=== PATIENT | female | born 1930 | race Caucasian/White ===

== ENCOUNTER 2016-06-28 08:52 | Inpatient (IN) | payer MEDICARE ==
[~2016-06-28] VITALS: Ht 160 cm; Wt 57.1 kg
[~2016-06-28 08:52] MED LIST: AMLO2.5T PO; BENI20TA25 PO; CALC-179 PO; CENTTAB9 PO; FISH1000 PO; MAGN250T13 PO; SIMV40 PO; SYNT88TA PO; TAFL1DRO12 EACH EYE; TYLE500T PO; VITA200017 PO; VITA400C70 PO; VITA500T49 PO; VITA500T83 PO; ZYRT10TA12 PO
[2016-06-28 08:59] VITALS: BP 156/56; PULSE 56; RESP 16; TEMP 98.3; O2SAT 100
[2016-06-28] MEDS ORDERED: PROPOFOL 200 MG/20 ML AMP IV ONE (09:51)
[2016-06-28] MEDS ORDERED: NEOSTIGMINE 3 MG/3 ML SYR IV ONE (09:52)
[2016-06-28] MEDS ORDERED: ePHEDrine/NS 25 MG/5 ML SYR IV ONE (09:52)
[2016-06-28] MEDS ORDERED: LACTATED RINGER'S 1000 ML INJ 1,000 ML IV ONE ×2 (09:52)
[2016-06-28] MEDS ORDERED: ONDANSETRON HCL 4 MG/2 ML VIAL IV PUSH ONE (09:52)
[2016-06-28] MEDS ORDERED: NORMOSOL R INJ 1,000 ML IV ONE (09:53)
--- NOTE | 2016-06-28 10:17 | PD ---
HPI Chief Complaint: Abdominal Pain Time Seen by Provider: 09:56 Travel History International Travel<30 days: No Contact w/Intl Traveler<30days: No History of Present Illness HPI 85-year-old female notes left lower quadrant abdominal pain with a lump in that area since last night. She also notes nausea. She denies other concurrent complaints other than nausea. Quality of pain is sharp. Severity is moderate. Pain is worse with movement. She denies other modifying factors. She denies prior history of this. She states that she noticed the lump sometime around last night and had difficulty sleeping. PFSH Past Medical History Arthritis: Yes Asthma: No Blood Disorders: No Heart Rhythm Problems: No Cancer: No Cardiovascular Problems: Yes High Cholesterol: Yes Chest Pain: No Congestive Heart Failure: No COPD: No Cerebrovascular Accident: No Endocrine: Yes Genitourinary: No Headaches: No Hypertension: No Immune Disorder: No Musculoskeletal: Yes Neurologic: Yes (GAIT) Psychiatric: No Reproductive: No Respiratory: No Migraines: No Myocardial Infarction: No Seizures: No Sleep Apnea: No Thyroid Disease: Yes Past Surgical History Abdominal Surgery: No Cardiac Surgery: No Ear Surgery: No Endocrine Surgery: Yes (PARITIAL THYROIDECTOMY) Eye Surgery: No Genitourinary Surgery: No Gynecologic Surgery: Yes (HYSTERCTOMY) Joint Replacement: Yes Oral Surgery: No Thoracic Surgery: No Social History Alcohol Use: Yes (WHISKEY OCCASIONAL COCKTAIL BEFORE DINNER) Tobacco Use: No Substance Use: No Allergies-Medications (Allergen,Severity, Reaction): Coded Allergies: No Known Allergies (Verified , 04/17/13) Reported Meds & Prescriptions Reported Meds & Active Scripts Active Reported Vitamin E 400 Unit Cap 400 Units PO DAILY Vitamin C (Ascorbic Acid) 500 Mg Cap 500 Mg PO DAILY Magnesium Gluconate 250 Mg Tab 250 Mg PO DAILY B6 Natural (Pyridoxine HCl) 100 Mg Tab 50 Mg PO DAILY Ocuvite (Multiple Vitamins W/ Minerals) 1 Tab 1 Tab PO DAILY Zioptan Opth Drops (Tafluprost Opth Drops) 0.015 Mg/Ml Drops 1 Drop EACH EYE HS Amlodipine (Amlodipine Besylate) 2.5 Mg Tab 2.5 Mg PO DAILY Benicar (Olmesartan) 20 Mg Tab 20 Mg PO DAILY Synthroid (Levothyroxine Sodium) 88 Mcg Tab 88 Mcg PO DAILY Simvastatin 20 Mg Tab 20 Mg PO DAILY Review of Systems Except as stated in HPI: all other systems reviewed are Neg Physical Exam Narrative GENERAL: Well-nourished, well-developed patient. Well-appearing SKIN: Warm and dry. HEAD: Normocephalic and atraumatic. EYES: No injection or drainage. ENT: No nasal drainage noted. NECK: Supple, trachea midline. CARDIOVASCULAR: Regular rate and rhythm RESPIRATORY: Breath sounds equal bilaterally. No accessory muscle use. GASTROINTESTINAL: Abdomen soft, tender left lower quadrant, left lower inguinal area with approximately 3 x 3 cm masslike area that is hard to palpation and tender to touch without overlying skin changes, nondistended. EXTREMITIES: No edema. NEUROLOGICAL: Awake and alert. Motor and sensory grossly within normal limits. Normal speech. Data Data Last Documented VS Vital Signs Date Time Temp Pulse Resp B/P Pulse Ox O2 Delivery O2 Flow Rate FiO2 06/28/16 13:20 51 16 141/58 99 Room Air 06/28/16 08:59 98.3 Orders Complete Blood Count With Diff (06/28/16 09:57) Comprehensive Metabolic Panel (06/28/16 09:57) Urinalysis - C+S If Indicated (06/28/16 09:57) Lipase (06/28/16 09:57) Iv Access Insert/Monitor (06/28/16 09:57) Oximetry (06/28/16 09:57) Lactic Acid (06/28/16 10:13) Ct Abd/Pel W/O Iv Contrast (06/28/16 ) Blood Culture (06/28/16 11:34) Chest, Single Ap (06/28/16 11:34) Sodium Chlor 0.9% 1000 Ml Inj (Ns 1000 M (06/28/16 11:45) Us Soft Tissue (06/28/16 ) Piperacil-Tazo 4.5 Gm Premix (Zosyn 4.5 (06/28/16 13:23) Diet Npo (06/28/16 Lunch) Admit Order (Ed Use Only) (06/28/16 13:43) Labs Laboratory Tests Test 06/28/16 06/28/16 10:39 10:48 White Blood Count 9.7 TH/MM3 Red Blood Count 3.68 MIL/MM3 Hemoglobin 10.8 GM/DL Hematocrit 32.2 % Mean Corpuscular Volume 87.6 FL Mean Corpuscular Hemoglobin 29.2 PG Mean Corpuscular Hemoglobin 33.4 % Concent Red Cell Distribution Width 12.5 % Platelet Count 225 TH/MM3 Mean Platelet Volume 7.8 FL Neutrophils (%) (Auto) 87.2 % Lymphocytes (%) (Auto) 8.9 % Monocytes (%) (Auto) 3.4 % Eosinophils (%) (Auto) 0.2 % Basophils (%) (Auto) 0.3 % Neutrophils # (Auto) 8.5 TH/MM3 Lymphocytes # (Auto) 0.9 TH/MM3 Monocytes # (Auto) 0.3 TH/MM3 Eosinophils # (Auto) 0.0 TH/MM3 Basophils # (Auto) 0.0 TH/MM3 CBC Comment DIFF FINAL Differential Comment Sodium Level 139 MEQ/L Potassium Level 4.9 MEQ/L Chloride Level 103 MEQ/L Carbon Dioxide Level 27.1 MEQ/L Anion Gap 9 MEQ/L Blood Urea Nitrogen 21 MG/DL Creatinine 1.70 MG/DL Estimat Glomerular Filtration 29 ML/MIN Rate Random Glucose 110 MG/DL Lactic Acid Level 2.5 mmol/L Calcium Level 9.5 MG/DL Total Bilirubin 0.4 MG/DL Aspartate Amino Transf 20 U/L (AST/SGOT) Alanine Aminotransferase 22 U/L (ALT/SGPT) Alkaline Phosphatase 71 U/L Total Protein 7.4 GM/DL Albumin 3.6 GM/DL Lipase 195 U/L Urine Collection Type CATH Urine Color YELLOW Urine Turbidity CLEAR Urine pH 7.0 Urine Specific [place] 1.020 Urine Protein 100 mg/dL Urine Glucose (UA) NEG mg/dL Urine Ketones TRACE mg/dL Urine Occult Blood NEG Urine Nitrite NEG Urine Bilirubin NEG Urine Leukocyte Esterase NEG Urine WBC 0-2 /hpf Microscopic Urinalysis Comment CULT NOT INDICATED MDM Medical Decision Making Medical Screen Exam Complete: Yes Emergency Medical Condition: Yes Medical Record Reviewed: Yes (Past history confirmed) Interpretation(s) CBC & BMP Diagram 06/28/16 10:39 Last 24 hours Impressions Chest X-Ray 06/28/16 1134 Signed Impressions: Service Date/Time: Tuesday, June 28, 2016 12:21 - CONCLUSION: 1. No acute cardiopulmonary disease. Tyrese Monroy MD Soft Tissue Ultrasound 06/28/16 0000 Signed Impressions: Service Date/Time: Tuesday, June 28, 2016 11:52 - CONCLUSION: Mass left inguinal region that could be an incarcerated hernia. Necrotic lymph node is the other possibility. All Mobley MD FACR Abdomen/Pelvis CT 06/28/16 0000 Signed Impressions: Service Date/Time: Tuesday, June 28, 2016 10:22 - CONCLUSION: 1. Soft tissue mass left inguinal region that may be hernia or lymph node. Ultrasound is pending. By history this is tender to palpation 2. Two suspicious areas in the non-contrast CT scan of the liver. All Mobley MD FACR Lactate elevated at 2.5 Differential Diagnosis Incarcerated hernia, mass,hernia... Narrative Course Will check blood work, urinalysis, placed head of bed flat and placed ice pack over groin, given hard with palpation and length like this will check CT scan abdominal pelvis to assess before reduction CT scan shows lymph node that can be percutaneously accessed as an outpatient, will discuss with radiology given history Patient updated about ultrasound for better visualization Patient updated and agrees to emergent transfer to the operating room, given Zosyn Physician Communication Physician Communication discussed with IR dr lainez and will proceed with ultrasound for better visualization discussed with dr hoff as told dr mobley and dr lainez were unavailable and he states incarcerated hernia and he will add addendum Dr. Mobley called me and states given painful is hernia dr jones reviewed ct and called me back and states to send to OR Diagnosis Primary Impression: Incarcerated hernia Additional Impression: Lactic acidosis Admitting Information Admitting Physician Requests: Admit Beatriz Dougherty MD Jun 28, 2016 10:17
[2016-06-28 10:54] LABS: AUTOMATED NEUTROPHIL # 8.5 TH/MM3 (1.8-7.7); BASOPHIL % 0.3 % (0.0-2.0); EOSINOPHIL % 0.2 % (0.0-4.0); HEMATOCRIT 32.2 % (35.0-46.0); HEMO FLAGS DIFF FINAL; LYMPH % 8.9 % (9.0-44.0); LYMPHOCYTE # 0.9 TH/MM3 (1.0-4.8); MEAN CELL VOLUME 87.6 FL (80.0-100.0); MEAN CORPUSCULAR HEMOGLOBIN 29.2 PG (27.0-34.0); MEAN CORPUSCULAR HGB CONC 33.4 % (32.0-36.0); MONO % 3.4 % (0.0-8.0); NEUT % 87.2 % (16.0-70.0); PLATELET COUNT 225 TH/MM3 (150-450); RED BLOOD COUNT 3.68 MIL/MM3 (4.00-5.30); RED CELL DISTRIBUTION WIDTH 12.5 % (11.6-17.2); WHITE BLOOD COUNT 9.7 TH/MM3 (4.0-11.0)
[2016-06-28 10:56] LABS: BLOOD, URINE NEG (NEG); GLUCOSE,URINE NEG (NEG); KETONE, URINE TRACE mg/dL (NEG); NITRITE,URINE NEG (NEG)
[2016-06-28 10:57] LABS: METHOD OF COLLECTION CATH; URINE COLOR YELLOW (YELLW/STRAW)
--- NOTE | 2016-06-28 10:57 | RADHPO ---
EXAM DATE/TIME: 06/28/2016 10:22 [facility] COMPARISON: ULTRASOUND SOFT TISSUE, June 28, 2016, 11:52. INDICATIONS : Left lower abdominal and inguinal pain with lump that appeared suddenly last night. ORAL CONTRAST: No oral contrast ingested. RADIATION DOSE: 10.46 CTDIvol (mGy) MEDICAL HISTORY : Thyroid disease. SURGICAL HISTORY : Thyroidectomy. Hysterectomy. Orthopedic surgery. ENCOUNTER: Initial ACUITY: 2 days PAIN SCALE: 3/10 LOCATION: Left lower quadrant TECHNIQUE: Volumetric scanning of the abdomen and pelvis was performed. Using automated exposure control and ad justment of the mA and/or kV according to patient size, radiation dose was kept as low as reasonably achievable to obtain optimal diagnostic quality images. FINDINGS: Minimal visual thickening is present. There is no pericardial effusion. Patient has a ventriculoperitoneal shunt in place. Two small focal defects are present in the liver non-suspicious but needing further evaluation. Diverticula are present in the sigmoid colon. Patient has a large soft tissue mass on the left that is painful. This could represent hernia. Ultrasound will be used for further evaluation. There is no free air identified. There is no retroperitoneal adenopathy. CONCLUSION: 1. Soft tissue mass left inguinal region that may be hernia or lymph node. Ultrasound is pending. B y history this is tender to palpation 2. Two suspicious areas in the non-contrast CT scan of the liver. All Bah MD FACR on June 28, 2016 at 10:45 Board Certified Radiologist. This report was verified electronically.
[2016-06-28 11:02] LABS: CHLORIDE 103 MEQ/L (98-107); POTASSIUM 4.9 MEQ/L (3.5-5.1); SODIUM (NA) 139 MEQ/L (136-145)
[2016-06-28 11:03] LABS: WBC, URINE 0-2 /hpf (0-5)
[2016-06-28 11:04] LABS: COMMENT (UR) CULT NOT INDICATED; CULTURE IF INDICATED CULT NOT INDICATED
[2016-06-28 11:05] LABS: ANION GAP 9 MEQ/L (5-15); BICARBONATE 27.1 MEQ/L (21.0-32.0)
[2016-06-28 11:06] LABS: BLOOD UREA NITROGEN 21 MG/DL (7-18)
[2016-06-28 11:08] LABS: ALT (GPT) 22 U/L (10-53); AST (GOT) 20 U/L (15-37); GLOMERULAR FILTRATION RATE 29 ML/MIN (>89)
[2016-06-28 11:10] LABS: TOTAL BILIRUBIN ADULT 0.4 MG/DL (0.2-1.0)
[2016-06-28 11:11] LABS: ALKALINE PHOSPHATASE 71 U/L (45-117)
[2016-06-28] MEDS ORDERED: BENI20TA5 PO (11:42)
[2016-06-28] MEDS ORDERED: PYRI1TAB5 PO (11:42)
[2016-06-28] MEDS ORDERED: SIMV20TA PO (11:42)
[2016-06-28] MEDS ORDERED: OCUVTAB PO (11:42)
[2016-06-28] MEDS ORDERED: TAFL0.00 EACH EYE (11:42)
[2016-06-28] MEDS ORDERED: SYNT88TA PO (11:42)
[2016-06-28] MEDS ORDERED: AMLO2.5T PO (11:42)
[2016-06-28] MEDS ORDERED: MAGN250T10 PO (11:44)
[2016-06-28] MEDS ORDERED: VITA400C2 PO (11:44)
[2016-06-28] MEDS ORDERED: ASCO500C PO (11:44)
[2016-06-28] MEDS ORDERED: SODIUM CHLOR 0.9% 1000 ML INJ 1,000 ML IV ONE (11:45)
[2016-06-28 12:09] VITALS: BP 158/62; PULSE 105; RESP 16; O2SAT 96
--- NOTE | 2016-06-28 13:03 | RADHPO ---
EXAM DATE/TIME: 06/28/2016 11:52 CORRECTION Corrected on: June 28, 2016; [facility] COMPARISON: CT ABDOMEN & PELVIS W/O CONTRAST, June 28, 2016, 10:22. INDICATIONS : Palpable area in left inguinal canal. MEDICAL HISTORY : Hypercholesterolemia. Hypothyroidism. Arthritis. SURGICAL HISTORY : Hysterectomy. Thyroidectomy. Hip replacement. Right shoulder replacement. ENCOUNTER: Initial ACUITY: 2 days PAIN SCORE: 4/10 LOCATION: Left inguinal canal. AREA EVALUATED: Left inguinal canal. FINDINGS: Mass in the left inguinal region is tender to palpation. There is no peristalsis this could be an in carcerated hernia. CONCLUSION: Mass left inguinal region that could be an incarcerated hernia. Necrotic lymph node is the other possibility. All Bah MD FACR on June 28, 2016 at 12:59 Board Certified Radiologist. This report was verified electronically. All Bah MD FACR on June 28, 2016 at 13:26 Board Certified Radiologist. This report was verified electronically.
[2016-06-28 13:20] VITALS: BP 141/58; PULSE 51; RESP 16; O2SAT 99
[2016-06-28] MEDS ORDERED: PIPERACIL-TAZO 4.5 GM PREMIX 100 ML IV STA (13:23)
--- NOTE | 2016-06-28 13:34 | RADHPO ---
EXAM DATE/TIME: 06/28/2016 12:21 [facility] COMPARISON: No previous studies available for comparison. INDICATIONS : Cough MEDICAL HISTORY : Hypercholesterolemia. SURGICAL HISTORY : None. ENCOUNTER: Initial ACUITY: 1 day PAIN SCORE: 0/10 LOCATION: Bilateral chest FINDINGS: The cardiac silhouette is normal in transverse diameter. The lungs are free of acute parenchymal opac ity. No effusions are identified. There is prominence of the aortic knob is with calcification charac teristic of atherosclerotic vascular disease. Shunt catheters traversing the right hemithorax anterio rly. CONCLUSION: 1. No acute cardiopulmonary disease. Tyrese Monroy MD on June 28, 2016 at 13:32 Board Certified Radiologist. This report was verified electronically.
[2016-06-28 14:00] VITALS: BP 157/79; PULSE 49; PULSE 56; RESP 16; O2SAT 98
[2016-06-28] MEDS ORDERED: ONDANSETRON HCL 4 MG/2 ML VIAL IV PRN (16:30)
[2016-06-28] MEDS ORDERED: HYDROmorphone HCL PF 1 MG/ML VIAL IV PRN (16:30)
[2016-06-28] MEDS ORDERED: metroNIDAZOLE 500 MG INJ 100 ML IV SCH (16:30)
[2016-06-28] MEDS ORDERED: SODIUM CHLORIDE 0.9% FLUSH 10 ML FLUSH IV FLUSH PRN (16:30)
[2016-06-28] MEDS ORDERED: Post-op Orders (for Pharmacy) MISC XX ONE (16:30)
[2016-06-28] MEDS ORDERED: ACETAMINOPHEN/HYDROcodone 325 MG/5 MG TAB PO PRN ×2 (16:30)
[2016-06-28] MEDS ORDERED: BUPIVACAINE/EPINEPHRINE 0.5% PF 30 ML VIAL ONE (17:03)
--- NOTE | 2016-06-28 17:27 | MH ---
cc: ASHLEY ORDOÑEZ DATE OF ADMISSION: 06/28/2016 CHIEF COMPLAINT Left lower quadrant inguinal pain, inguinal hernia. HISTORY OF PRESENT ILLNESS The patient is an 85-year-old female who presented with acute onset of left lower inguinal pain. She states the pain started at approximately 7:00 p.m. last night and then woke her from sleep. She states the pain was sharp, 8 out of 10, currently is 2 out of 10, nonradiation, better with lying still, worse with movement or palpation. She states she has never had pain quite like this before. She came to the emergency department for further evaluation at [place] with findings and concern for incarcerated left inguinal hernia versus left inguinal mass. On my exam, the patient is resting. She states the pain is still persistent, although has some improvement with narcotic pain medication. She does deny any vomiting but does state she does have some persistent nausea. She denies fever or chills. PAST MEDICAL HISTORY: 1. Arthritis. 2. Normal pressure hydrocephalus. 3. Kidney disease. 4. Thyroid disease. 5. Hypertension. 6. Hypercholesterolemia. PAST SURGICAL HISTORY: 1. STATIONS SUPERINTENDENT shunt. 2. Tubal ligation. 3. Hysterectomy. 4. Partial thyroidectomy. ALLERGIES: NO KNOWN DRUG ALLERGIES. MEDICATIONS: See EMR. SOCIAL HISTORY: The patient denies ETOH or IVDA. No current smoking history, quit in 1995. FAMILY HISTORY: Mother with brain tumor, father with stroke. REVIEW OF SYSTEMS: GENERAL: The patient denies fevers. HEENT: Denies eye pain, ear pain. Neck: Denies swelling or pain. Chest: Denies palpitations or chest pain. Respirations: Denies cough or wheeze. Abdomen: Complained of inguinal hernia, nausea. Denies vomiting. Extremities: Denies myalgias. Complains of arthralgia. Neurologic: Denies numbness or tingling. : Denies dysuria, hematuria. Endocrine: History of thyroid disease. Denies polyuria, polydipsia. PHYSICAL EXAMINATION The patient is in no acute distress. Vital signs: Temperature 98.3, pulse 56, respiration 16, blood pressure 156/56, saturation 100%. HEENT: Pupils equal, round, reactive. Neck: Supple. Midline small incisional scar. Lungs: Bilateral expansion, clear. Heart: S1-S2 regular rhythm. Abdomen: Soft, minimal distension. Positive tenderness to palpation, left inguinal area. Positive incarcerated inguinal hernia. No evidence of erythema. Extremities: Warm, well perfused. Neurologic: GCS of 15, A&O x3. 5/5 motor all extremities. Skin: No lesions, inguinal mass. LABORATORY AND DIAGNOSTIC DATA WBC 9.7, hemoglobin 10.8, hematocrit 32.3. Platelet count 225, sodium 139, potassium 4.9, chloride 103, BUN 21, creatinine 1.7, lactate 2.5, calcium 9.5, T-bili 0.4, AST 20, ALT 22, alkaline phosphatase 71, lipase 195. IMAGING STUDIES Reviewed by myself. CT abdomen and pelvis, evidence of diverticulosis without diverticulitis, dilated small bowel loops, minimal air-fluid levels, left inguinal hernia, concern for incarcerated small bowel versus questionable lymph node on radiologic reading. CT ultrasound also reviewed concerning this. ASSESSMENT The patient is an 85-year-old female who presents with acute onset of left groin pain, concern for incarcerated left inguinal hernia. PLAN After full clinical, radiologic, and laboratory workup the patient with above-named issue including concern for a left incarcerated inguinal hernia versus necrotic mass. At this point in time the patient will go emergently to the OR for evaluation and diagnostic laparoscopy, possible inguinal hernia repair, possible bowel resection. Will keep the patient n.p.o., IV antibiotics, pain control. This was discussed in detail with the patient. The patient states understanding and agrees and would like to proceed with the procedure. MD LUPIS Dorsey/ERIC /4:42 PM /5:02 PM
--- NOTE | 2016-06-28 17:32 | HHI.PR ---
Immediate Post Op Note Procedure Date: Jun 28, 2016 Pre Op Diagnosis: incarcerated left inguinal hernia Post Op Diagnosis: same Surgeon: Alfredo Kovacs MD Senior Ui Ux Developer(s): Dr. Butler Procedure: dx lap, left inguinal hernia repair, small bowel resection Findings: incarcerated left inguinal hernia, necrotic bowel Complications: none Specimen(s) removed: small bowel Estimated blood loss: 30cc Anesthesia: General Drains: None IVF (1500) Patient to: PACU Patient Condition: Good Alfredo Kovacs MD Jun 28, 2016 17:32
[2016-06-28] MEDS ORDERED: ACETAMINOPHEN 1000 MG/100 ML VIAL IV ONE (17:39)
[2016-06-28] MEDS ORDERED: ceFAZolin 2 GM PREMIX 50 ML ONE (17:53)
[2016-06-28] MEDS ORDERED: SUGAMMADEX SODIUM 200 MG/2 ML VIAL IV PUSH ONE ×2 (18:29)
[2016-06-28] MEDS ORDERED: fentaNYL CITRATE 250 MCG/5 ML AMP ONE (19:33)
[2016-06-28 20:00] VITALS: BP 156/64; PULSE 55; RESP 17; TEMP 97.2; O2SAT 98
[2016-06-28] MEDS: LACTATED RINGER'S 1000 ML INJ 1,000 ML IV SCH (20:45)
[2016-06-28] MEDS: metroNIDAZOLE 500 MG INJ 100 ML IV SCH (20:45)
[2016-06-28] MEDS: DOCUSATE SODIUM 100 MG CAP PO SCH (22:07)
[2016-06-28] MEDS: SODIUM CHLORIDE 0.9% FLUSH 10 ML FLUSH IV FLUSH SCH (22:09)
[2016-06-29] VITALS (8 sets, daily range): BP systolic 132–176; BP diastolic 64–72; PULSE 58–71; RESP 16–20; TEMP 96.5–98.7; O2SAT 95–100
[2016-06-29] MEDS: LACTATED RINGER'S 1000 ML INJ 1,000 ML IV SCH ×3 (01:58→19:53)
[2016-06-29] MEDS: metroNIDAZOLE 500 MG INJ 100 ML IV SCH ×2 (04:26→11:58)
[2016-06-29 05:32] LABS: AUTOMATED NEUTROPHIL # 7.7 TH/MM3 (1.8-7.7); BASOPHIL % 0.3 % (0.0-2.0); EOSINOPHIL % 0.5 % (0.0-4.0); HEMATOCRIT 27.6 % (35.0-46.0); HEMO FLAGS DIFF FINAL; LYMPH % 11.8 % (9.0-44.0); LYMPHOCYTE # 1.1 TH/MM3 (1.0-4.8); MEAN CELL VOLUME 86.8 FL (80.0-100.0); MEAN CORPUSCULAR HEMOGLOBIN 30.1 PG (27.0-34.0); MEAN CORPUSCULAR HGB CONC 34.7 % (32.0-36.0); MONO % 6.8 % (0.0-8.0); NEUT % 80.6 % (16.0-70.0); PLATELET COUNT 189 TH/MM3 (150-450); RED BLOOD COUNT 3.18 MIL/MM3 (4.00-5.30); RED CELL DISTRIBUTION WIDTH 13.3 % (11.6-17.2); WHITE BLOOD COUNT 9.6 TH/MM3 (4.0-11.0)
[2016-06-29 06:01] LABS: BICARBONATE 24.9 MEQ/L (21.0-32.0); POTASSIUM 4.1 MEQ/L (3.5-5.1)
[2016-06-29] MEDS: amLODIPine BESYLATE 5 MG TAB PO SCH (08:41)
[2016-06-29] MEDS: LOSARTAN 50 MG TAB PO SCH (08:42)
[2016-06-29] MEDS: DOCUSATE SODIUM 100 MG CAP PO SCH ×2 (08:42→19:52)
[2016-06-29] MEDS: SODIUM CHLORIDE 0.9% FLUSH 10 ML FLUSH IV FLUSH SCH ×2 (08:42→19:53)
--- NOTE | 2016-06-29 13:18 | EKG ---
Date Performed: 06/28/2016 Time Performed: 15:17:17 PTAGE: 85 years EKG: SINUS BRADYCARDIA BORDERLINE ECG PREVIOUS TRACING : 05/27/2007 12.43 DOCTOR: Tyrese Williamson Interpretating Date/Time 06/29/2016 13:15:35
--- NOTE | 2016-06-29 13:24 | HHI.PR ---
Subjective Subjective Notes Resting in bed Concerned about urinary retention Objective Vitals/I&O Vital Signs Date Time Temp Pulse Resp B/P Pulse Ox O2 Delivery O2 Flow Rate FiO2 06/29/16 12:00 96.8 63 17 164/70 99 06/28/16 20:50 Room Air 06/28/16 19:30 3 Labs Laboratory Tests Test 06/29/16 04:55 White Blood Count 9.6 Red Blood Count 3.18 Hemoglobin 9.6 Hematocrit 27.6 Mean Corpuscular Volume 86.8 Mean Corpuscular Hemoglobin 30.1 Mean Corpuscular Hemoglobin 34.7 Concent Red Cell Distribution Width 13.3 Platelet Count 189 Mean Platelet Volume 8.4 Neutrophils (%) (Auto) 80.6 Lymphocytes (%) (Auto) 11.8 Monocytes (%) (Auto) 6.8 Eosinophils (%) (Auto) 0.5 Basophils (%) (Auto) 0.3 Neutrophils # (Auto) 7.7 Lymphocytes # (Auto) 1.1 Monocytes # (Auto) 0.6 Eosinophils # (Auto) 0.0 Basophils # (Auto) 0.0 CBC Comment DIFF FINAL Differential Comment Sodium Level 140 Potassium Level 4.1 Chloride Level 107 Carbon Dioxide Level 24.9 Anion Gap 8 Blood Urea Nitrogen 19 Creatinine 1.63 Estimat Glomerular Filtration 30 Rate Random Glucose 97 Calcium Level 8.4 Date/Time Procedure Status Source Growth 06/28/16 11:50 Aerobic Blood Culture - Preliminary Resulted Blood Peripheral NO GROWTH IN 1 DAY 06/28/16 11:50 Anaerobic Blood Culture - Preliminary Resulted Blood Peripheral NO GROWTH IN 1 DAY Cardiovascular: Regular Lungs: Clear Abdomen: Other (mildly distended; LEFT inguinal hernia bandage in place ---c/d/ i; lap sites c/d/i with Steri Strips in place ) Extremities: No edema A/P Assessment and Plan 85 year old female POD1 dx lap; LEFT inguinal hernia repair with small bowel resection for necrotic bowel -Start clears -OOB today -Pain control -Insert Jovel for urinary retention -Continue IVF Attending Statement s/p incarcerated IH with necrotic bowel place jovel otherwise doing well patient seen at bedside Attestation The exam, history, and the medical decision-making described in the above note were completed with the assistance of the mid-level provider. I reviewed and agree with the findings presented. I attest that I had a [id number] encounter with the patient on the same day, and personally performed and documented my assessment and findings in the medical record. Magi Najera Jun 29, 2016 13:24 Alfredo Kovacs MD Jul 15, 2016 20:59
[2016-06-30 00:02] VITALS: BP 138/51; PULSE 67; RESP 20; TEMP 97.6; O2SAT 96
[2016-06-30 08:00] VITALS: BP 140/58; PULSE 72; RESP 17; TEMP 97.6; O2SAT 94
[2016-06-30] MEDS: SODIUM CHLORIDE 0.9% FLUSH 10 ML FLUSH IV FLUSH SCH (09:00)
[2016-06-30] MEDS: DOCUSATE SODIUM 100 MG CAP PO SCH (09:00)
[2016-06-30] MEDS: LOSARTAN 50 MG TAB PO SCH (09:35)
[2016-06-30] MEDS: amLODIPine BESYLATE 5 MG TAB PO SCH (09:35)
[2016-06-30] MEDS: LACTATED RINGER'S 1000 ML INJ 1,000 ML IV SCH (09:36)
[2016-06-30 12:00] VITALS: BP 160/58; PULSE 65; RESP 16; TEMP 97.4; O2SAT 97
--- NOTE | 2016-06-30 12:24 | HHI.PR ---
Subjective Subjective Notes tolerating full liq diet, +flatus Objective Vitals/I&O Vital Signs Date Time Temp Pulse Resp B/P Pulse Ox O2 Delivery O2 Flow Rate FiO2 06/30/16 08:00 97.6 72 17 140/58 94 06/28/16 20:50 Room Air 06/28/16 19:30 3 Labs Date/Time Procedure Status Source Growth 06/28/16 11:50 Aerobic Blood Culture - Preliminary Resulted Blood Peripheral NO GROWTH IN 2 DAYS 06/28/16 11:50 Anaerobic Blood Culture - Preliminary Resulted Blood Peripheral NO GROWTH IN 2 DAYS Cardiovascular: Regular Lungs: Clear Abdomen: Other (soft, incisions scant dry blood) A/P Assessment and Plan POD 2 LIH repair with sb resection PLAN Reg diet po pain control oob d/c planning Alfredo Kovacs MD Jun 30, 2016 12:23
[2016-06-30] MEDS ORDERED: HEPARIN SODIUM - SQ 10,000 UNITS/ML VIAL SQ SCH (13:00)
--- NOTE | 2016-07-02 06:08 | MP ---
cc: ASHLEY KOVACS DATE OF SURGERY: 06/28/2016 PREOPERATIVE DIAGNOSIS: Bowel obstruction, incarcerated left inguinal hernia. POSTOPERATIVE DIAGNOSIS Bowel obstruction, incarcerated left inguinal hernia. PROCEDURE PERFORMED 1. Diagnostic laparoscopy 2. Open repair of left inguinal hernia primarily. 3. Small bowel resection with primary anastomosis. SURGEON Dr. Alfredo Kovacs REFRIGERATOR REPAIRMAN: Dr. Keyur Butler. Dr. Keyur Butler was needed due to the complexity of this open case. Dr. Butler was necessary for retraction and assistance. ANESTHESIA GETA. IV FLUIDS 1500 mL ESTIMATED BLOOD LOSS: 30 cc URINE OUTPUT: 130 cc. DRAINS: None. COMPLICATIONS: None. WOUND CLASSIFICATION Clean, contaminated SPECIMENS Small bowel. INDICATION The patient is an 85-year-old female who presented with several medical issues and complaints of left inguinal pain and bulge. She did have some nausea without vomiting. She had a CT scan showing some dilated small bowel loops concerning for incarcerated inguinal hernia on the left, versus possible necrotic lymph node. Decision was made for operative intervention including diagnostic laparoscopy with left inguinal hernia repair. I discussed with the patient in detail regarding the procedure. FINDINGS Distended small bowel with incarcerated strangulated small bowel and left inguinal hernia. DETAILS OF PROCEDURE The patient was taken to the operating suite, was placed in supine position. She was prepped and draped in the usual sterile fashion. Brief time-out done stating correct patient, procedure, surgical site. Attention first directed to the umbilicus where local anesthetic was injected. A small stab yordan incision made. Veress needle entered and placed intra-abdominally with confirmation saline drop test. Abdomen insufflated 15 millimeter pneumoperitoneum.. Veress needle switched for a 5-mm trocar and scope, on cursory inspection no evidence of injury. There was noted to be mildly dilated small bowel loops. Second trocar placed down the left lower quadrant 5 millimeter. There was noted to be incarcerated left inguinal hernia likely indirect inguinal hernia. The bowel was intimately stuck in this hernia defect with a small neck and unable to be reduced laparoscopically. Therefore the trocar was left in place. The abdomen desufflated and transitioned to open left inguinal hernia repair. A transverse 6 cm incision was made in between pubic tubercle and ASIS above the inguinal ligament. This was done with a 15 blade. Further dissection with electric Bovie cautery. This was done down to the external oblique fascia. This dissected the subcutaneous tissue off this plane. A stab yordan incision made over the external oblique in the direction of fibers. Metzenbaum scissors directed to the external inguinal canal. This was incised to the direction of the fibers. Hemostats placed. Kitner dissector was used to mobilize the cord and hernia sac. The hernia sac noted to be very distended, dark with bowel and prominent. The sac was mobilized and dissected. Upon doing so the small bowel was noted to retract back into the inguinal ring and into the abdominal cavity. The sac was opened. The small bowel was unable to be identified from this location. Therefore the abdomen insufflated, laparoscope replaced and grasper identified the necrotic portion of the small bowel. This bowel was grasped and handed through the defect in the left inguinal cavity and brought into the surface. The Lover.ly grasper was used to mobilize the bowel up through the inguinal hernia sac. This was opened already noted. The bowel was dusky and did not look viable to a small section. Therefore decision was made for small bowel resection. Endo-GRUPO 55 blue load was used to transect either side of bowel. Hemostats used and 3-0 silk ties used to ligate the mesenteric vessels. The bowel anastomosis was then recreated, 3-0 silk stay sutures placed, Bovie cautery made small enterotomies on each side of the bowel. A 55 GRUPO blue load was introduced to create the clmfewq-wcu-gfchaot layer. A crotch stitch was placed for further approximation. Allis grasped the enterotomies in order bring them up and a TA stapler was placed across this in order to transect in a fashion the closure of the small bowel anastomosis. Metzenbaum was used to remove excess tissue. The staple line oversewn with Lembert 3-0 silk pop-off. The mesenteric hernia defect was closed with [id number]-pv-[id number] 2-0 silk tie. The small bowel was then reduced back into the abdominal cavity. Next the hernia sac was pursestringed with a 0 silk suture and transected for high ligation. The sac was then reduced into the abdominal cavity. At this point we did not feel comfortable placing mesh to recreate the hernia floor due to the risk of infection and the fact that there was an incarcerated necrotic small bowel. Decision was made for 0 Ethibond sutures to approximate the conjoined tendon to the shelving edge. This was done in interrupted fashion. Next the wound was closed in layers. The external oblique was closed with a running 3-0 Vicryl suture noting to protect and identify the ilioinguinal nerve. Following this Niharika fascia was closed again in layers. [place] used for the skin loosely to approximate. Telfa amina were placed in between these. Sterile dressing was placed. The abdomen was re-insufflated to examine the small bowel anastomosis which looked good and the hernia defect was noted to be closed. Omentum was somewhat adhesed to previous incisional scar. However, a piece of omentum was able to be mobilized and placed over the anastomosis in between the repaired hernia. The abdomen was then desufflated. Trocars removed. 4-0 Monocryl was used to close the incisions. Sterile dressings were placed. All lap and instrument counts were correct at the end of the procedure. The patient tolerated the procedure well. There is no intraoperative complication. The patient is expected and taken to the PACU. MD LUPIS Dorsey/ERIC /9:35 PM /5:34 AM
[2016-08-30] MEDS ORDERED: VITA200C3 PO (14:47)
[2016-08-30] MEDS ORDERED: ASCO1CAP PO (14:47)
[2016-08-30] MEDS ORDERED: ESSE250T (14:47)
== END 2016-06-30 15:39 | disposition home or self-care (01) | DRG 329 ==
LOC: PHED 08:52 → PHEDA 13:45 → HPAC 14:55 → N07B 20:51
PROVIDERS: ADMIT Surgery; ATTEND Surgery
PROC: 0DB80ZZ Excision of Small Intestine, Open Approach (ICD-10-PCS; principal; 2016-06-28 17:19)
PROC: 0YQ60ZZ Repair Left Inguinal Region, Open Approach (ICD-10-PCS; 2016-06-28 17:19)
PROC: 0WJP4ZZ Inspection of Gastrointestinal Tract, Percutaneous Endoscopic Approach (ICD-10-PCS; 2016-06-28 17:19)
DX: K40.30 Unilateral inguinal hernia, with obstruction, without gangrene, not specified as recurrent (principal); K55.069 Acute infarction of intestine, part and extent unspecified; E87.2 Acidosis; G91.2 (Idiopathic) normal pressure hydrocephalus; I10 Essential (primary) hypertension; E78.00 Pure hypercholesterolemia, unspecified; K57.90 Diverticulosis of intestine, part unspecified, without perforation or abscess without bleeding; R33.9 Retention of urine, unspecified; E07.9 Disorder of thyroid, unspecified; M19.90 Unspecified osteoarthritis, unspecified site; N28.9 Disorder of kidney and ureter, unspecified; Z98.2 Presence of cerebrospinal fluid drainage device
CPT/HCPCS: 71010; 74176; 76999; 80048; 80053; 81001; 83605; 83690; 85025; 87040; 88307; 93005; 94150; 96361; 96374; J0131; J0690; J1644; J2405; J2543; J2710; J3010; J7030; J7120

== ENCOUNTER → 2016-08-31 | Day surgery (SDC) | payer MEDICARE ==
[~2016-08-31] VITALS: Ht 160 cm; Wt 55.8 kg
[~2016-08-31] MED LIST changes: +ACETAMINOPHEN 1000 MG/100 ML VIAL IV ONE; +ACETAMINOPHEN/HYDROcodone 325 MG/5 MG TAB ONE; +ASCO1CAP PO; -BENI20TA25 PO; +BENI20TA5 PO; +BUPIVACAINE/EPINEPHRINE 0.25% PF 10 ML VIAL ONE; -CALC-179 PO; -CENTTAB9 PO; +CHLORHEXIDINE GLUCONATE 2 % 1 PACK (2 CLOTHS) TOPICAL PRN; +DO NOT ADM ANY ANTICOAGULANT DRUGS PRN; +ESSE250T; +FAMOTIDINE 20 MG/2 ML VIAL ONE; -FISH1000 PO; +INSULIN HUMAN REGULAR 1,000 UNITS/10 ML VIAL SQ PRN; +LACTATED RINGER'S 1000 ML INJ 1,000 ML IV ONE; +LACTATED RINGER'S 1000 ML IV PRN; -MAGN250T13 PO; +METOPROLOL TARTRATE 25 MG TAB PO PRN; +NEOSTIGMINE 3 MG/3 ML SYR IV ONE; +OCUVTAB PO; +ONDANSETRON HCL 4 MG/2 ML VIAL IV PUSH ONE; +ONDANSETRON HCL 4 MG/2 ML VIAL IV PUSH PRN; +PHENYLEPH/NS 1000 MCG/10 ML SYR IV ONE; +POVIDONE IODINE 5% (ANTISEPSIS KIT) 4 APPLICATIONS EACH NARE PRN; +PROPOFOL 200 MG/20 ML AMP IV ONE; +PYRI1TAB5 PO; +SIMV20TA PO; -SIMV40 PO; +SODIUM CHLORID 0.9% 500 ML IV PRN; +TAFL0.00 EACH EYE; -TAFL1DRO12 EACH EYE; -TYLE500T PO; -VITA200017 PO; +VITA200C3 PO; -VITA400C70 PO; -VITA500T49 PO; -VITA500T83 PO; -ZYRT10TA12 PO; +ceFAZolin 2 GM PREMIX 50 ML IV SCH; +ePHEDrine/NS 25 MG/5 ML SYR IV ONE; +fentaNYL CITRATE 250 MCG/5 ML AMP ONE; +oxyCODONE/ACETAMINOPHEN 5 MG/325 MG TAB PO PRN
[2016-08-31 09:05] VITALS: BP_SYST 196; BP_SYST 204; BP_DIAS 60; BP_DIAS 73; PULSE 64; RESP 22; TEMP 98; O2SAT 99
[2016-08-31 09:12] LABS: AUTOMATED NEUTROPHIL # 2.9 TH/MM3 (1.8-7.7); BASOPHIL % 0.6 % (0.0-2.0); EOSINOPHIL # 0.2 TH/MM3 (0-0.4); EOSINOPHIL % 4.2 % (0.0-4.0); HEMATOCRIT 33.4 % (35.0-46.0); HEMO FLAGS DIFF FINAL; LYMPH % 32.1 % (9.0-44.0); LYMPHOCYTE # 1.7 TH/MM3 (1.0-4.8); MEAN CELL VOLUME 87.3 FL (80.0-100.0); MEAN CORPUSCULAR HEMOGLOBIN 28.4 PG (27.0-34.0); MEAN CORPUSCULAR HGB CONC 32.6 % (32.0-36.0); MONO % 8.3 % (0.0-8.0); NEUT % 54.8 % (16.0-70.0); PLATELET COUNT 227 TH/MM3 (150-450); RED BLOOD COUNT 3.83 MIL/MM3 (4.00-5.30); RED CELL DISTRIBUTION WIDTH 13.6 % (11.6-17.2); WHITE BLOOD COUNT 5.2 TH/MM3 (4.0-11.0)
[2016-08-31 09:30] LABS: BICARBONATE 26.2 MEQ/L (21.0-32.0); POTASSIUM 4.4 MEQ/L (3.5-5.1)
--- NOTE | 2016-08-31 12:21 | HHI.PR ---
Immediate Post Op Note Procedure Date: Aug 31, 2016 Pre Op Diagnosis: right inguinal hernia, umbilical hernia Post Op Diagnosis: same Surgeon: Alfredo Kovacs MD Grants Director(s): Dr. Miller Whitney needed due to the complexity of the laparoscopic procedure. Dr. Whitney needed to for retraction and camera control. Procedure: laparoscopic right inguina hernia repair, open umbilical hernia repair Findings: reducible right inguinal hernia, umbilical hernia, adhesions Complications: none Specimen(s) removed: none Estimated blood loss: 5cc Anesthesia: General Drains: None Patient to: PACU Patient Condition: Good Alfredo Kovacs MD Aug 31, 2016 12:21
[2016-08-31 14:16] VITALS: BP 138/66; PULSE 57; RESP 18; TEMP 97.5; O2SAT 98
--- NOTE | 2016-09-01 22:09 | MP ---
cc: DANIEL KOVACS MD DATE OF SURGERY 08/31/16 PREOPERATIVE DIAGNOSIS Right reducible inguinal hernia repair, umbilical hernia. POSTOPERATIVE DIAGNOSIS Right reducible inguinal hernia repair, umbilical hernia. indirect inguinal hernia. PROCEDURE Diagnostic laparoscopy, laparoscopic repair of right indirect inguinal hernia with mesh, [facility], open repair of umbilical hernia. SURGEON Dr. Dora Kovacs LOCKSTITCH SHOULDER JOINER Dr. Anastasia Whitney needed due to the complex of the laparoscopic case. Dr. Whitney assisted in retraction, camera control and visualization. ANESTHESIA GETA. IV FLUIDS See anesthesia sheet ESTIMATED BLOOD LOSS 10 mL. DRAINS None COMPLICATIONS None WOUND CLASSIFICATION Clean SPECIMENS None FINDINGS Reducible indirect inguinal hernia. Small umbilical hernia. Left inguinal hernia repair intact. INDICATIONS The patient is an 85-year-old female who presented initially with a left inguinal hernia. She was obstructed at this time. The patient underwent emergent surgery with open left inguinal hernia repair with bowel resection. She improved from this and was seen in the office several times, but over the time the patient also noted to be complaining of constipation and increased straining and intra-abdominal pressure due to chronic constipation. In the last 3 weeks, she developed bulging on the right side and complaints of right reducible inguinal hernia.. She also had a small umbilical hernia. Therefore, a decision was made for operative intervention including laparoscopic repair. Discussed with the patient in detail, agreed and would like to proceed. PROCEDURE IN DETAIL The patient was taken to operating suite, placed in supine position. She was prepped and draped in usual sterile fashion after induction of general endotracheal anesthesia. Brief time-out done stating correct patient, procedure and surgical site we were all in agreement. Attention initially directed to the left upper quadrant where a stab yordan incision made. Veress needle placed, intraabdominal placement confirmed with saline drop test. The abdomen insufflated to 15 mm pneumoperitoneum. The Veress needle was exchanged for a 5-mm trocar. On cursory inspection, no evidence of injury. On inspection, there was noted to be a right indirect inguinal hernia that was completely reducible. Two other trocars placed, one 5 mm left lower quadrant trocar followed by a 12-mm infraumbilical trocar. The patient placed in Trendelenburg and airplaned to the left. There were several adhesions noted to the right upper quadrant. These were taken down in order to facilitate visualization and assist in manipulation and repair. The peritoneal edge was incised from superiorly above the inguinal canal laterally near the AISI. This was done with a scissors electro Bovie cautery. Superior and inferior flaps were created. Dissection was done in order to clear adequate place for mesh placement comfortably without any undue folding. Once we accomplished this and the hernia reduction, the mesh was cut to appropriate size. All appropriate mesh was used. Surgical tacker used to tack and three focal points, one at the shelving edge, one superior and medial and one superolateral to this. The hernia defect was adequately covered and we were happy with this. The defect covered all of potential spaces as well in the preperitoneal cavity. Next, the peritoneum was closed over the mesh. This was done with 3-0 Stratifix in running fashion x2. The peritoneum was a little bit thin and tenuous, however, we did achieve adequate and good coverage completely of our mesh and seal. was placed in the right lower quadrant. Next, the abdomen was desufflated and attention directed to the umbilicus where a curvilinear incision was made for the 12 trocar. There a was small hernia sac present at the umbilicus. The skin edges were mobilized. The sac was then visualized, mobilized and excised. Once adequate fascial edges were identified, a #1 was obtained. The hernia defect was closed in a [id number] fashion. Next, the umbilicus was tacked down. The subcuticular sutures were done to 4-0 Monocryl following port site incisions. Sterile dressings including Dermabond was placed. Local anesthetic injected at all port sites. The patient tolerated procedure well. There was no intraoperative complication. The patient was extubated, taken stable to the PACU. MD LUPIS Dorsey/ /1:33 PM /9:43 PM PEDRITO
== END | disposition home or self-care (01) ==
LOC: HSDC 08:22
PROVIDERS: ATTEND Surgery
DX: K40.30 Unilateral inguinal hernia, with obstruction, without gangrene, not specified as recurrent (principal); K42.9 Umbilical hernia without obstruction or gangrene; I12.9 Hypertensive chronic kidney disease with stage 1 through stage 4 chronic kidney disease, or unspecified chronic kidney disease; N18.9 Chronic kidney disease, unspecified; E78.5 Hyperlipidemia, unspecified; J44.9 Chronic obstructive pulmonary disease, unspecified; E03.9 Hypothyroidism, unspecified; M19.90 Unspecified osteoarthritis, unspecified site
CPT/HCPCS: 49585; 49650; 80048; 85025; C1781; J0131; J2370; J2405; J2710; J3010; J7120

== ENCOUNTER 2017-12-27 11:01 | Inpatient (IN) ==
[2017-12-27 12:03] LABS: Baso % (Auto) 0.2 % (0.0-2.0); Hematocrit 32.9 % (35.0-46.0); Lymph # (Auto) 0.5 th/mm3 (1.0-4.8); Mean Corpuscular HGB Conc 33.4 % (32.0-36.0); Mean Corpuscular Hemoglobin 29.9 pg (27.0-34.0); Mean Corpuscular Volume 89.6 fL (80.0-100.0); Mono # (Auto) 0.8 th/mm3 (0.0-0.9); Mono % (Auto) 6.1 % (0.0-8.0); Neut # (Auto) 11.5 th/mm3 (1.8-7.7); Neut % (Auto) 89.7 % (16.0-70.0); Platelet Count 207 th/mm3 (150-450); Red Blood Count 3.67 mil/mm3 (4.00-5.30); Red Cell Distribution Width 13.5 % (11.6-17.2); White Blood Count 12.8 th/mm3 (4.0-11.0)
--- NOTE | 2017-12-27 12:11 | ED ---
HPI General Chief complaint: Headache Stated complaint: Medical Time Seen by Provider: 12/27/17 11:18 Source: patient, family and EMS Mode of arrival: EMS Limitations: no limitations History of Present Illness HPI narrative: Patient is an 87-year-old female presenting with her daughter via EMS for evaluation of possible TIA. Patient woke up this morning at around 830 and called a friend and stated that she just did not feel well. Apparently she was slurring her words, the daughter saw patient around 9 AM, the symptoms had improved. Patient has no complaints now other than right rib pain. She denies any falls. She states the pain is mild, worse with deep breathing. She denies any shortness of breath or chest pain, nausea, vomiting, abdominal pain. Patient reports that she has a headache occasionally when changes occur in barometric pressure, this is chronic for her. She denies any new headache pain or pain currently. She denies any visual changes. Patient did not take her blood pressure medication this morning. 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 MD complaint: Possible TIA, rib pain Onset (ago): hour(s) (3.5) Radiation: non-radiation Severity: mild Severity scale (1-10): 3 Quality: dull Pain Consistency: intermittent Relieving factors: rest Exacerbating factors: movement Associated symptoms: denies other symptoms Treatments prior to arrival: none Related Data Home Medications Medication Instructions Recorded Confirmed levothyroxine [Synthroid] 88 mcg PO DAILY 12/27/17 12/27/17 olmesartan [Benicar] 20 mg PO DAILY 12/27/17 12/27/17 simvastatin 20 mg PO QPM 12/27/17 12/27/17 tafluprost (PF) [Zioptan (PF)] 1 drp OPHTHALMIC (EYE) QPM 12/27/17 12/27/17 vit C-vit [id number] 1 cap PO DAILY 12/27/17 12/27/17 [Ocuvite] Allergies Allergy/AdvReac Type Severity Reaction Status Date / Time EYE DROPS Allergy Severe Swelling Uncoded 08/31/16 09:47 Review of Systems ROS: all other systems reviewed are negative [facility] Medical History Medical History Glaucoma (Chronic) Hydrocephalus (Chronic) Hyperlipidemia (Chronic) Hypertension (Chronic) Hypothyroid (Chronic) Renal disease (Chronic) Social History Social History Substance History: No History of Abuse Second Hand Smoke Exposure: No Smoking Status: Former smoker Tobacco Type: Cigarettes How Often Do You Have a Drink Containing Alcohol: Never Recent Travel in [facility] within the Last 8 Weeks: No Recent Out of Country Travel within the Last 8 Weeks: No Immunization History Tetanus Immunization: <5 Years Exam Narrative Exam Narrative: GENERAL: Well-developed, well-nourished, alert elderly female. Presenting in no acute distress. SKIN: Focused skin assessment warm/dry. HEAD: Atraumatic. Normocephalic. EYES: Pupils equal and round. No scleral icterus. No injection or drainage. ENT: No nasal bleeding or discharge. Mucous membranes pink and moist. NECK: Trachea midline. No JVD. CARDIOVASCULAR: Regular rate and rhythm. No murmur appreciated. RESPIRATORY: No accessory muscle use. Clear to auscultation. Breath sounds equal bilaterally. GASTROINTESTINAL: Abdomen soft, non-tender, nondistended. Hepatic and splenic margins not palpable. MUSCULOSKELETAL: No obvious deformities. No clubbing. No cyanosis. No edema. Mild tenderness to palpation lateral aspect of right ribs. NEUROLOGICAL: Awake and alert. No obvious cranial nerve deficits. Motor grossly within normal limits. Normal speech. PSYCHIATRIC: Appropriate mood and affect; insight and judgment normal. Course Initial Documented Vital Signs Temperature 98.4 F 12/27/17 11:12 Pulse Rate 85 12/27/17 11:12 Respiratory Rate 18 12/27/17 11:12 Blood Pressure 208/88 H 12/27/17 11:12 Pulse Oximetry 96 12/27/17 11:12 Last Documented Vital Signs Temperature 98.4 F 12/27/17 11:12 Pulse Rate 69 12/27/17 15:15 Respiratory Rate 17 12/27/17 15:15 Blood Pressure 166/58 H 12/27/17 15:15 Pulse Oximetry 100 12/27/17 15:15 Medical Decision Making MDM Narrative Medical decision making narrative: Patient is an 87-year-old female presenting to the emergency department for evaluation of possible TIA. Symptoms resolved prior to arrival. Patient has no focal deficits on arrival. Labs and imaging ordered and pending. Patient was placed on telemetry monitoring continuous pulse oximetry. Patient was markedly hypertensive on arrival, she did not take Benicar this morning. She was given enalapril 2.5 mg IV x1 dose. Patient is well-appearing, daughters at bedside. Labs reviewed, CBC with a mildly elevated white count 12.5. Chest x-ray and urinalysis are unremarkable. Chemistry with a BUN and creatinine of 27/1.77, this is stable when compared to prior.Discussed findings with daughter who is concerned because patient has been more irritable and she thinks this is due to the shunt malfunctioning. Reassured her the CT of the brain and shunt series had no acute abnormalities. Pt will be admitted for observation for possible TIA. BP continued to be elevated, pt was given Clonidine 0.2mg PO x 1 dose. Medical Screen Exam Complete: Yes Emergency Medical Condition: Yes Differential Diagnosis Differential Diagnosis: Costochondritis versus pneumonia versus TIA versus metabolic abnormality versus UTI versus other Medical Records Medical records reviewed: Yes I reviewed the patient's medical records. Lab Data Lab results reviewed: Yes I reviewed the patient's lab results. Result diagrams: 12/27/17 11:30 12/27/17 11:30 Lab Results 12/27/17 12/27/17 12/27/17 Range/Units 11:30 11:30 11:30 WBC 12.8 H (4.0-11.0) th/mm3 RBC 3.67 L (4.00-5.30) mil/mm3 Hgb 11.0 L (11.6-15.3) gm/dL Hct 32.9 L (35.0-46.0) % MCV 89.6 (80.0-100.0) fL MCH 29.9 (27.0-34.0) pg MCHC 33.4 (32.0-36.0) % RDW 13.5 (11.6-17.2) % Plt Count 207 (150-450) th/mm3 MPV 8.0 (7.0-11.0) fL Neut % (Auto) 89.7 H (16.0-70.0) % Lymph % (Auto) 4.0 L (9.0-44.0) % Mccracken % (Auto) 6.1 (0.0-8.0) % Eos % (Auto) 0.0 (0.0-4.0) % Baso % (Auto) 0.2 (0.0-2.0) % Neut # (Auto) 11.5 H (1.8-7.7) th/mm3 Lymph # (Auto) 0.5 L (1.0-4.8) th/mm3 Mccracken # (Auto) 0.8 (0.0-0.9) th/mm3 Eos # (Auto) 0.0 (0.0-0.4) th/mm3 Baso # (Auto) 0.0 (0.0-0.2) th/mm3 WBC Differential . Differential Comment Auto diff final PT 10.7 (9.8-11.6) sec INR 1.1 Ratio APTT 24.5 (24.3-30.1) sec Sodium 139 (136-145) meq/L Potassium 4.1 (3.5-5.1) meq/L Chloride 107 (98-107) meq/L Carbon Dioxide 23.6 (21.0-32.0) meq/L Anion Gap 8 (5-15) meq/L BUN 27 H (7-18) mg/dL Creatinine 1.77 H (0.50-1.00) mg/dL Estimated GFR 27 L (>89) mL/min Random Glucose 103 (74-106) mg/dL Calcium 9.0 (8.5-10.1) mg/dL Total Bilirubin 0.5 (0.2-1.0) mg/dL AST 18 (15-37) U/L ALT 22 (10-53) U/L Alkaline Phosphatase 79 (45-117) U/L Total Creatine Kinase 67 (26-192) U/L Troponin I Less than 0.02 L (0.02-0.05) ng/mL Total Protein 7.6 (6.4-8.2) g/dL Albumin 3.3 L (3.4-5.0) g/dL Urine Color (Yellw/Straw) Urine Clarity (Clear) Urine pH (5.0-8.5) Ur Specific [place] (1.002-1.035) Urine Protein (Neg-Trace) mg/dL Urine Glucose (UA) (Negative) mg/dL Urine Ketones (Negative) mg/dL Urine Occult Blood (Negative) Urine Nitrate (Negative) Urine Bilirubin (Negative) Urine Urobilinogen (Less than 2) mg/dL Ur Leukocyte Esterase (Negative) Urine RBC (0-3) /hpf Urine WBC (0-5) /hpf Ur Squamous Epith Cells (0-5) /hpf Micro UA Comment Ur Microscopic Review Urine Culture Comments 12/27/17 Range/Units 14:15 WBC (4.0-11.0) th/mm3 RBC (4.00-5.30) mil/mm3 Hgb (11.6-15.3) gm/dL Hct (35.0-46.0) % MCV (80.0-100.0) fL MCH (27.0-34.0) pg MCHC (32.0-36.0) % RDW (11.6-17.2) % Plt Count (150-450) th/mm3 MPV (7.0-11.0) fL Neut % (Auto) (16.0-70.0) % Lymph % (Auto) (9.0-44.0) % Mccracken % (Auto) (0.0-8.0) % Eos % (Auto) (0.0-4.0) % Baso % (Auto) (0.0-2.0) % Neut # (Auto) (1.8-7.7) th/mm3 Lymph # (Auto) (1.0-4.8) th/mm3 Mccracken # (Auto) (0.0-0.9) th/mm3 Eos # (Auto) (0.0-0.4) th/mm3 Baso # (Auto) (0.0-0.2) th/mm3 WBC Differential Differential Comment PT (9.8-11.6) sec INR Ratio APTT (24.3-30.1) sec Sodium (136-145) meq/L Potassium (3.5-5.1) meq/L Chloride (98-107) meq/L Carbon Dioxide (21.0-32.0) meq/L Anion Gap (5-15) meq/L BUN (7-18) mg/dL Creatinine (0.50-1.00) mg/dL Estimated GFR (>89) mL/min Random Glucose (74-106) mg/dL Calcium (8.5-10.1) mg/dL Total Bilirubin (0.2-1.0) mg/dL AST (15-37) U/L ALT (10-53) U/L Alkaline Phosphatase (45-117) U/L Total Creatine Kinase (26-192) U/L Troponin I (0.02-0.05) ng/mL Total Protein (6.4-8.2) g/dL Albumin (3.4-5.0) g/dL Urine Color Yellow (Yellw/Straw) Urine Clarity Clear (Clear) Urine pH 6.0 (5.0-8.5) Ur Specific [place] 1.013 (1.002-1.035) Urine Protein 100 H (Neg-Trace) mg/dL Urine Glucose (UA) Negative (Negative) mg/dL Urine Ketones Trace H (Negative) mg/dL Urine Occult Blood Small H (Negative) Urine Nitrate Negative (Negative) Urine Bilirubin Negative (Negative) Urine Urobilinogen Less than 2 (Less than 2) mg/dL Ur Leukocyte Esterase Negative (Negative) Urine RBC 1 (0-3) /hpf Urine WBC Less than 1 (0-5) /hpf Ur Squamous Epith Cells 1 (0-5) /hpf Micro UA Comment Culture not ind Ur Microscopic Review Not Reportable Urine Culture Comments Culture not ind Imaging Data Radiologist's impression: Chest X-Ray 12/27/17 00:00 CONCLUSION: No acute cardiopulmonary findings. No definite abnormality to explain the patient's rib pain identified. Head CT 12/27/17 11:19 CONCLUSION: 1. The patient's ventriculostomy shunt appears in good position. The size of the ventricles is stable compared to the previous examination. . Shunt Study 12/27/17 11:21 CONCLUSION: The ventriculoperitoneal shunt tubing appears intact. Discharge Plan Discharge Disposition Patient Disposition: 30 Still Patient Discharge Condition Condition: Stable Discharge Details Diagnosis: TIA (transient ischemic attack), Hypertension Physicians Team ED Provider: Buzz Miller ED Midlevel Provider: Bianca Zuniga Primary Care Provider: Yoni Carrasco Attending Provider: Shamir Beltre Discharge Interventions Interventions: Vital Signs Last Done: 12/27/17 15:15 Status ED Status: Admitted Observation Patient
[2017-12-27 12:13] LABS: Activated Partial Thrombo Time 24.5 sec (24.3-30.1); INR 1.1 Ratio; Prothrombin Time 10.7 sec (9.8-11.6)
[2017-12-27 12:29] LABS: Albumin 3.3 g/dL (3.4-5.0); Anion Gap 8 meq/L (5-15); Aspartate Aminotransferase 18 U/L (15-37); Blood Urea Nitrogen 27 mg/dL (7-18); Carbon Dioxide 23.6 meq/L (21.0-32.0); Chloride 107 meq/L (98-107); Glomerular Filtration Rate 27 mL/min (>89); Glucose,Random 103 mg/dL (74-106); Potassium 4.1 meq/L (3.5-5.1); Sodium 139 meq/L (136-145)
[2017-12-27 12:34] LABS: Alanine Aminotransferase 22 U/L (10-53); Alkaline Phosphatase 79 U/L (45-117); Total Protein 7.6 g/dL (6.4-8.2)
--- NOTE | 2017-12-27 12:37 | XR ---
EXAM DATE: 12/27/2017 11:21 AM EDT AGE/SEX: 87 years / Female INDICATIONS: Shunt series, confusion, headache. Right lateral rib pain. CLINICAL DATA: This is the patient's initial encounter. Patient reports that signs and symptoms have been present for 3 days and indicates a pain score of 0/10. MEDICAL/SURGICAL HISTORY: . Shunt . Shunt COMPARISON: [facility], CHEST SINGLE AP, 06/28/2016. . FINDINGS: Examination includes two-view skull, two-view C-spine, and frontal views of the chest and abdomen. Ventriculostomy shunt tip is identified projecting into the lateral ventricular system on the left.. The alignment of the tubing with the reservoir is maintained without evidence of separation. The shunt tubing has a normal course through the neck and chest without discontinuity or kink. The shunt tubing is coiled in the abdomen without displacement of the bowel about the distal tip. CONCLUSION: The ventriculoperitoneal shunt tubing appears intact. Electronically signed by: Jay Bah MD 12/27/2017 12:36 PM EDT
--- NOTE | 2017-12-27 12:46 | CT ---
EXAM DATE: 12/27/2017 11:31 AM EDT AGE/SEX: 87 years / Female INDICATIONS: Slurred speech, Cephalgia. CLINICAL DATA: This is the patient's initial encounter. Patient reports that signs and symptoms have been present for 1 day and indicates a pain score of 3/10. MEDICAL/SURGICAL HISTORY: Hypertension. Glaucoma . 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 . TECHNIQUE: CT of the head without contrast. Using automated exposure control and adjustment of the mA and/or kV according to patient size, radiation dose was kept as low as reasonably achievable to ob tain optimal diagnostic quality images. DICOM format image data is available electronically for revi ew and comparison. FINDINGS: The examination demonstrates a ventriculostomy shunt which enters from a right frontal approach. The tip overlies the lateral ventricular system on the left. The ventricles and sulci are at the upper li mits of normal in size. They are stable compared to a previous of 09/22/2016. There is no evidence of transependymal fluid migration. No acute intracranial hemorrhage is seen. No mass lesion is identified. No extra-axial fluid collecti ons are present. The appearance of the posterior fossa is unremarkable. 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 There are post surgical changes within the skull. CONCLUSION: 1. The patient's ventriculostomy shunt appears in good position. The size of the ventricles is stabl e compared to the previous examination. . Electronically signed by: Jay Bah MD 12/27/2017 12:45 PM EDT
[2017-12-27 12:52] LABS: Creatine Kinase 67 U/L (26-192)
--- NOTE | 2017-12-27 14:06 | XR ---
EXAM DATE: 12/27/2017 12:00 AM EDT AGE/SEX: 87 years / Female INDICATIONS: Evaluate for rib pain. CLINICAL DATA: This is the patient's initial encounter. Patient reports that signs and symptoms have been present for 1 day and indicates a pain score of 5/10. MEDICAL/SURGICAL HISTORY: . Hypertension. Glaucoma . . BACK MAKER shunt COMPARISON: [facility] [place], SHUNT SERIES, 12/27/2017. . FINDINGS: The heart is mildly enlarged. There are diffuse chronic interstitial changes within the pulmonary par enchyma. The parenchyma is otherwise clear. Note is made of tubing of a ventriculoperitoneal shunt. T he osseous structures demonstrate postsurgical changes in the right shoulder but are otherwise intact . CONCLUSION: No acute cardiopulmonary findings. No definite abnormality to explain the patient's rib pain identified. Electronically signed by: Jay Bah MD 12/27/2017 2:05 PM EDT
[2017-12-27 14:36] LABS: Bilirubin,Urine Negative (Negative); Clarity,Urine Clear (Clear); Color,Urine Yellow (Yellw/Straw); Glucose,Urine (UA) Negative (Negative); Leukocyte Esterase,Urine Negative (Negative); Nitrite,Urine Negative (Negative); Specific Gravity,Urine 1.013 (1.002-1.035); Squamous Epithelial Cell,Urine 1 /hpf (0-5)
--- NOTE | 2017-12-27 15:44 | P.HPIM ---
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 her daughter says that this morning she noticed that her speech was slurred and she seemed confused.she had urinary incontinence at the time. she says that she had some headache/ pressure this morning which has almost resolved. she denies any emesis,focal weakness, fever. she doesn't report any falls. she's complaining of mild pain to the right chest wall. Review of Systems All other systems reviewed negative except as stated in HPI [facility] - History History Provided By: Patient, Family Member - Medical History Medical History: Medical History (Last Reviewed 12/27/17 @ 15:36 by Shamir Beltre MD) Hydrocephalus Hypertension Renal disease Glaucoma Hyperlipidemia Hypothyroid - Surgical History Surgical History: Surgical History (Last Updated 12/27/17 @ 15:37 by Shamir Beltre MD) H/O shoulder surgery COMMERCIAL CREDIT ANALYST (ventriculoperitoneal) shunt status - Family History Family History: Family History (Last Updated 12/27/17 @ 15:38 by Shamir Beltre MD) Other CVA (cerebral vascular accident) - Tobacco History Second Hand Smoke Exposure: No Tobacco Use In Past 30 Days: No Smoking Status: Former smoker Tobacco Type: Cigarettes - Alcohol History How Often Do You Have a Drink Containing Alcohol: Never - Substance Use History Substance History: No History of Abuse - Travel History Recent Travel in the [place] Within the Last 8 Weeks: No Recent Travel Out of the Country Within the Last 8 Weeks: No - Immunization History Tetanus Immunization: <5 Years Medications and Allergies Active Medications: Active Medications Aspirin (Aspirin Chew) 162 mg PO DAILY SHIN Enalaprilat (Vasotec Inj) 1.25 mg IV.PUSH Q8H PRN PRN Reason: SBP > 200 or DBP > 120 Sodium Chloride (Ns Inj) 1,000 mls @ 84 mls/hr IV.CONT .[id number] SHIN Levothyroxine Sodium (Synthroid) 88 mcg PO DAILY SHIN Non-Formulary Medication (Simvastatin [Simvastatin]) 20 mg PO QPM SHIN Non-Formulary Medication (Tafluprost (Pf) [Zioptan (Pf)]) 1 drp EACH EYE QPM SHIN Sodium Chloride (Ns Flush) 2 ml IV.FLUSH PRN PRN PRN Reason: FLUSH AFTER USING IV ACCESS Last Admin: 12/27/17 13:47 Dose: 2 ml Allergies Allergy/AdvReac Type Severity Reaction Status Date / Time EYE DROPS Allergy Severe Swelling Uncoded 08/31/16 09:47 Home Medications Medication Instructions Recorded Confirmed Type levothyroxine [Synthroid] 88 mcg PO DAILY 12/27/17 12/27/17 History olmesartan [Benicar] 20 mg PO DAILY 12/27/17 12/27/17 History simvastatin 20 mg PO QPM 12/27/17 12/27/17 History tafluprost (PF) [Zioptan (PF)] 1 drp OPHTHALMIC (EYE) QPM 12/27/17 12/27/17 History vit C-vit [id number] 1 cap PO DAILY 12/27/17 12/27/17 History [Ocuvite] Exam Vital signs: Vital Signs 12/27/17 11:12 12/27/17 11:47 12/27/17 11:51 Temperature 98.4 F Pulse Rate 85 80 Respiratory Rate 18 18 Blood Pressure 208/88 H 204/137 H Pulse Oximetry 96 98 96 12/27/17 12:11 12/27/17 13:24 12/27/17 13:49 Temperature Pulse Rate 80 80 82 Respiratory Rate 17 17 15 Blood Pressure 212/92 H 221/90 H 207/89 H Pulse Oximetry 98 95 99 12/27/17 14:00 12/27/17 15:15 Temperature Pulse Rate 80 69 Respiratory Rate 22 17 Blood Pressure 201/73 H 166/58 H Pulse Oximetry 99 100 Intake & Output 12/26/17 12/27/17 12/27/17 18:59 06:59 18:59 Weight 56.699 kg - Constitutional no acute distress - Routine HEENT Exam Head: Present: atraumatic - Routine Neck Exam Present: full ROM - Routine Respiratory Exam Present: CTA bilaterally - Routine Cardiovascular Exam Present: RRR - Routine Abdominal Exam Present: soft - Routine Extremities Exam Comments: no pedal edema. - Routine Neurological Exam Present: alert, oriented X3 Results - Labs CBC & Chem 7: 12/27/17 11:30 12/27/17 11:30 Labs: Short CBC 12/27/17 Range/Units 11:30 WBC 12.8 H (4.0-11.0) th/mm3 Hgb 11.0 L (11.6-15.3) gm/dL Hct 32.9 L (35.0-46.0) % Plt Count 207 (150-450) th/mm3 BMP 12/27/17 11:30 Sodium 139 Potassium 4.1 Chloride 107 Carbon Dioxide 23.6 BUN 27 H Creatinine 1.77 H Calcium 9.0 Cardiac Enzymes 12/27/17 Range/Units 11:30 Total Creatine Kinase 67 (26-192) U/L Troponin I Less than 0.02 L (0.02-0.05) ng/mL Liver Function 12/27/17 Range/Units 11:30 Total Bilirubin 0.5 (0.2-1.0) mg/dL AST 18 (15-37) U/L ALT 22 (10-53) U/L Alkaline Phosphatase 79 (45-117) U/L Albumin 3.3 L (3.4-5.0) g/dL Urine 12/27/17 Range/Units 14:15 Urine Color Yellow (Yellw/Straw) Urine Clarity Clear (Clear) Urine pH 6.0 (5.0-8.5) Ur Specific [place] 1.013 (1.002-1.035) Urine Protein 100 H (Neg-Trace) mg/dL Urine Glucose (UA) Negative (Negative) mg/dL - Imaging Impressions Chest X-Ray 12/27/17 00:00 CONCLUSION: No acute cardiopulmonary findings. No definite abnormality to explain the patient's rib pain identified. Head CT 12/27/17 11:19 CONCLUSION: 1. The patient's ventriculostomy shunt appears in good position. The size of the ventricles is stable compared to the previous examination. . Shunt Study 12/27/17 11:21 CONCLUSION: The ventriculoperitoneal shunt tubing appears intact. Caprini VTE Risk Assessment Caprini VTE Risk Assessment: Moderate/High Risk (score >= 2) Caprini Risk Assessment Model: Point Value = 1 Point Value = 2 Point Value = 3 Point Value = 5 Age 41-60 Minor surgery BMI > 25 kg/m2 Swollen legs Varicose veins or History of unexplained or recurrent spontaneous Oral contraceptives or hormone replacement Sepsis (< 1 month) Serious lung disease, including pneumonia (< 1 month) Abnormal pulmonary function Acute myocardial infarction Congestive heart failure (< 1 month) History of inflammatory bowel disease Medical patient at bed rest Age 61-74 Arthroscopic surgery Major open surgery (> 45 min) Laparoscopic surgery (> 45 min) Malignancy Confined to bed (> 72 hours) Immobilizing plaster cast Central venous access Age >= 75 History of VTE Family history of VTE Factor V Leiden Prothrombin [id number] Lupus anticoagulant Anticardiolipin antibodies Elevated serum homocysteine Heparin-induced thrombocytopenia Other congenital or acquired thrombophilia Stroke (< 1 month) Elective arthroplasty Hip, pelvis, or leg fracture Acute spinal cord injury (< 1 month) Prophylaxis Regimen: Total Risk Factor Score Risk Level Prophylaxis Regimen 0-1 Low Early ambulation 2 Moderate Order ONE of the following: *Sequential Compression Device (SCD) *Heparin 5000 units SQ BID 3-4 Higher Order ONE of the following medications: *Heparin 5000 units SQ TID *Enoxaparin/Lovenox 40 mg SQ daily (WT < 150 kg, CrCl > 30 mL/min) *Enoxaparin/Lovenox 30 mg SQ daily (WT < 150 kg, CrCl > 10-29 mL/min) *Enoxaparin/Lovenox 30 mg SQ BID (WT < 150 kg, CrCl > 30 mL/min) AND/OR *Sequential Compression Device (SCD) 5 or more Highest Order ONE of the following medications: *Heparin 5000 units SQ TID (Preferred with Epidurals) *Enoxaparin/Lovenox 40 mg SQ daily (WT < 150 kg, CrCl > 30 mL/min) *Enoxaparin/Lovenox 30 mg SQ daily (WT < 150 kg, CrCl > 10-29 mL/min) *Enoxaparin/Lovenox 30 mg SQ BID (WT < 150 kg, CrCl > 30 mL/min) AND *Sequential Compression Device (SCD) Assessment and Plan - Plan A/P - TIA vs CVA CT head with no acute abnormality with COMMERCIAL CREDIT ANALYST shunt in good position. start on aspirin and continue statin- consult neurology. will check carotid doppler and echo- continue with neuro-checks. consult PT/OT/ST. -Normal Pressure Hydrocephalus; s/p COMMERCIAL CREDIT ANALYST shunt placement- shunt study showed intact COMMERCIAL CREDIT ANALYST shunt. -hypertension; received Clonidine and Vasotec in ER- will proceed with permissive hypertension for now- awaiting neurology evaluation. -CKD; at her baseline- will monitor. -hypothyroidism; resume home meds -DVT prophylaxis with subq Heparin Code Status: DNR per my d/w the patient and her daughter. Discussed Condition With: ER midlevel/ the patient, her daughter and RN. Discharge Planning: pending w/u.
--- NOTE | 2017-12-27 16:29 | US ---
EXAM DATE: 12/27/2017 12:00 AM EDT AGE/SEX: 87 years / Female INDICATIONS: Transient ischemic attack. CLINICAL DATA: This is the patient's initial encounter. Patient reports that signs and symptoms have been present for 1 day and indicates a pain score of 0/10. MEDICAL/SURGICAL HISTORY: Hypertension. Hypothyroidism. Glaucoma. Hydrocephalus. Hyperlipidemi a. Renal disease. None. COMPARISON: No prior exams available for comparison. VELOCITY PARAMETERS: ICA/CCA Ratio: Right 1.4 , Left 1.5 ICA: Right 119.9 cm/sec, Left 123.9 cm/sec CCA: Right 83.1 cm/sec, Left 80.6 cm/sec ECA: Right 118.0 cm/sec, Left 145.6 cm/sec Vertebral: Right 118.0 cm/sec antegrade, Left 67.2 cm/sec antegrade FINDINGS: Right Carotid: Bulky arteriosclerotic plaque is visualized.The waveforms are within normal limits. Left Carotid: Bulky arteriosclerotic plaque is visualized. The waveforms are within normal limits. Other: None. CONCLUSION: 1. 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 2. Left Internal Carotid Artery: Findings indicate 50-69% stenosis. Electronically signed by: Seth Jose MD 12/27/2017 4:27 PM EDT
[2017-12-27] MEDS: Sod Chloride 0.9% Inj 1,000 ML IV.CONT SCH (17:53)
[2017-12-27] MEDS ORDERED: ZIOPTAN 0.0015% EACH EYE SCH (18:00)
--- NOTE | 2017-12-27 21:44 | MB ---
cc: Jai Huff MD, PhD DATE: 12/27/2017 REASON FOR CONSULTATION: TIA. HISTORY OF PRESENT ILLNESS: Ms. Carlson is an 87-year-old woman with normal pressure hydrocephalus with NEGOTIATIONS DIRECTOR shunt placement who yesterday developed a sudden onset of slurred speech and mild confusion. She also had some urinary incontinence. She had no focal deficits. She seems to be better now. She states her speech is back to normal. PAST MEDICAL HISTORY: History of NPH, status post shunting, hypertension, renal insufficiency, glaucoma, hyperlipidemia, hypothyroidism, shoulder surgery. MEDICATIONS: Vasotec p.r.n. She is on aspirin 162 mg daily, which was just started in the ER. She has not been on aspirin before. She is on Pravachol. NEUROLOGIC EXAMINATION: VITAL SIGNS: Blood pressure 154/65, pulse 94, respirations 17, temperature 98.5 degrees Fahrenheit. HIGHER CORTICAL FUNCTION: She is alert and oriented. Speech is normal at this time. CRANIAL NERVES: Intact. MOTOR: Reveals no focal weakness. Reflexes are symmetric. IMAGING STUDIES: CT of the brain shows NEGOTIATIONS DIRECTOR shunt in place, no acute change present. There is some atrophy. Ventricles at the upper limit of normal. No evidence of transependymal fluid migration. LABORATORY DATA: White count 12,800, hemoglobin 11, hematocrit 32.9%, platelet count 207,000. PT 10.7, INR 1.1, aPTT 24.5. Sodium 139, potassium 4.1, chloride 107, CO2 of 23.6, BUN 27, creatinine 1.77, GFR 27, AST 18, ALT 22. IMPRESSION: Probable transient ischemic attack, which has resolved. RECOMMENDATIONS: Continue aspirin. We will obtain an echocardiogram, a carotid ultrasound and lipid panel. Continue to monitor cardiac telemetry to rule out atrial fibrillation. Jai Huff MD, PhD JOLIE/[place] , 08:54 PM , 09:00 PM
[2017-12-28] MEDS: Acetaminophen 325 MG Tablet PO PRN (04:06)
[2017-12-28] MEDS: Sod Chloride 0.9% Inj 1,000 ML IV.CONT SCH ×2 (05:11→17:21)
[2017-12-28] MEDS: Levothyroxine 88 MCG Tablet PO SCH (05:13)
[2017-12-28 06:03] LABS: Baso % (Auto) 0.3 % (0.0-2.0); Eos % (Auto) 0.1 % (0.0-4.0); Hematocrit 26.4 % (35.0-46.0); Hemoglobin 8.9 gm/dL (11.6-15.3); Lymph # (Auto) 0.6 th/mm3 (1.0-4.8); Mean Corpuscular HGB Conc 33.6 % (32.0-36.0); Mean Corpuscular Hemoglobin 30.5 pg (27.0-34.0); Mean Corpuscular Volume 90.6 fL (80.0-100.0); Mean Platelet Volume 8.2 fL (7.0-11.0); Mono # (Auto) 0.7 th/mm3 (0.0-0.9); Mono % (Auto) 6.2 % (0.0-8.0); Neut # (Auto) 10.7 th/mm3 (1.8-7.7); Neut % (Auto) 88.4 % (16.0-70.0); Platelet Count 163 th/mm3 (150-450); Red Blood Count 2.91 mil/mm3 (4.00-5.30); Red Cell Distribution Width 13.4 % (11.6-17.2); White Blood Count 12.1 th/mm3 (4.0-11.0)
[2017-12-28 06:33] LABS: Calcium 8.1 mg/dL (8.5-10.1); Chol/HDL Ratio 2.13 Ratio; HDL Cholesterol 57.6 mg/dL (40.0-60.0); Potassium 3.9 meq/L (3.5-5.1)
[2017-12-28] MEDS: Heparin - SQ 10,000 UNITS/ML Vial SQ SCH ×2 (08:17→21:45)
[2017-12-28 09:14] LABS: Thyroid Stimulating Hormone 0.68 uIU/mL (0.358-3.740)
--- NOTE | 2017-12-28 10:53 | US ---
EXAM DATE: 12/28/2017 12:00 AM EDT AGE/SEX: 87 years / Female INDICATIONS: Increased lab values. CLINICAL DATA: This is the patient's initial encounter. Patient reports that signs and symptoms have been present for 1 day and indicates a pain score of 0/10. MEDICAL/SURGICAL HISTORY: Hypertension. Hypothyroidism. Glaucoma. Hyperlipidemia. Renal diseas e. Hydrocephalus. . Shoulder surgery. Ventriculoperitoneal shunt. COMPARISON: [facility], CT ABDOMEN & PELVIS W/O CONTRAST, 06/28/2016. . MEASUREMENTS: Right Kidney:__9.1 x 3.4 x 3.0 cm Left Kidney:__8.5 x 3.4 x 3.2 cm FINDINGS: Right Kidney: Increased echogenicity. No mass or hydronephrosis. Left Kidney: Increased echogenicity. No mass or hydronephrosis. Bladder: Within normal limits given the degree of distension. Other: None. CONCLUSION: Both kidneys are at the lower limits for normal in size. Both kidneys also demonstrate increased echo genicity suggesting medical renal disease. Electronically signed by: Abe Townsend MD 12/28/2017 10:52 AM EDT
--- NOTE | 2017-12-28 12:08 | P.PN ---
Subjective Interval history: Follow-up on patient with episode of slurred speech, urinary incontinence. Patient seen and examined. Patient states that on Sunday she had recurrent episodes of "falling asleep" associated with urinary incontinence and "not feeling herself". She also reports headaches. She denies any complaints of hematuria or dysuria. She has a history of NPH status [place] INFORMATION SECURITY [place] [address] Burris. She states that she has had no episodes of urinary incontinence since the shunt was placed. She denies any tongue biting or bowel incontinence. She denies any history of seizures. She denies any history of CVA. She denies any recent illness, fever or chills. She denies any focal weakness, numbness or tingling. She reports to me this morning that she feels that she is back at her baseline. She denies any complaints at this time except for "feeling a little wobbly". Physical Exam Vital signs: Vital Signs 12/27/17 11:47 12/27/17 11:51 12/27/17 12:11 Temperature Pulse Rate 80 80 Respiratory Rate 18 17 Blood Pressure 204/137 H 212/92 H Pulse Oximetry 98 96 98 12/27/17 13:24 12/27/17 13:49 12/27/17 14:00 Temperature Pulse Rate 80 82 80 Respiratory Rate 17 15 22 Blood Pressure 221/90 H 207/89 H 201/73 H Pulse Oximetry 95 99 99 12/27/17 15:15 12/27/17 16:00 12/27/17 18:25 Temperature 98.5 F Pulse Rate 69 Respiratory Rate 17 Blood Pressure 166/58 H 154/65 H Pulse Oximetry 100 95 95 12/27/17 20:00 12/27/17 23:37 12/28/17 03:44 Temperature 99.8 F H 98.1 F 101.4 F H Pulse Rate 70 69 70 Respiratory Rate 17 19 20 Blood Pressure 103/49 L 157/63 H 144/63 H Pulse Oximetry 94 L 94 L 93 L 12/28/17 08:00 12/28/17 09:08 Temperature 97.6 F Pulse Rate 61 55 L Respiratory Rate 20 Blood Pressure 133/57 L Pulse Oximetry 94 L Intake & Output 12/27/17 12/28/17 12/28/17 18:59 06:59 18:59 Intake Total 360 / 360 1480 / 1480 Balance 360 / 1480 / 1480 Weight 60 kg 59.874 kg Intake: IV 1000 / 1000 NS Inj 1,000 ML @ 84 mls/hr IV. 1000 / 1000 CONT .[id number] SHIN Rx#:[id number] Oral / 360 480 / 480 Other: # Voids 2 Weight On Admission 60 kg Narrative: GENERAL: Well-developed well-nourished elderly female patient, no acute distress. Awake and alert. Family is at the bedside. SKIN: Warm and dry. HEAD: Atraumatic. Normocephalic. No facial asymmetry appreciated. EYES: Pupils equal and round. No scleral icterus. No injection or drainage. ENT: No nasal bleeding or discharge. Mucous membranes pink and moist. NECK: Trachea midline. CARDIOVASCULAR: Regular rate and rhythm. RESPIRATORY: No accessory muscle use. Clear to auscultation. Breath sounds equal bilaterally. GASTROINTESTINAL: Abdomen soft, non-tender, nondistended. Hepatic and splenic margins not palpable. MUSCULOSKELETAL: Extremities without clubbing, cyanosis, or edema. No obvious deformities. NEUROLOGICAL: Awake and alert. No obvious cranial nerve deficits. Motor grossly within normal limits. Able to move all extremities spontaneously. No focal weakness appreciated. Normal speech. PSYCHIATRIC: Appropriate mood and affect; insight and judgment normal. Results - Labs CBC & Chem 7: 12/28/17 05:30 12/28/17 05:30 Laboratory Results - last 24 hr 12/27/17 12/27/17 12/27/17 11:30 11:30 11:30 WBC 12.8 H RBC 3.67 L Hgb 11.0 L Hct 32.9 L MCV 89.6 MCH 29.9 MCHC 33.4 RDW 13.5 Plt Count 207 MPV 8.0 Neut % (Auto) 89.7 H Lymph % (Auto) 4.0 L [place] % (Auto) 6.1 Eos % (Auto) 0.0 Baso % (Auto) 0.2 Neut # (Auto) 11.5 H Lymph # (Auto) 0.5 L [place] # (Auto) 0.8 Eos # (Auto) 0.0 Baso # (Auto) 0.0 WBC Differential . Differential Comment Auto diff final PT 10.7 INR 1.1 APTT 24.5 Sodium 139 Potassium 4.1 Chloride 107 Carbon Dioxide 23.6 Anion Gap 8 BUN 27 H Creatinine 1.77 H Estimated GFR 27 L Random Glucose 103 Calcium 9.0 Total Bilirubin 0.5 AST 18 ALT 22 Alkaline Phosphatase 79 Total Creatine Kinase 67 Troponin I Less than 0.02 L Total Protein 7.6 Albumin 3.3 L Triglycerides Cholesterol LDL Cholesterol, Calc HDL Cholesterol Cholesterol/HDL Ratio Vitamin B12 TSH Urine Color Urine Clarity Urine pH Ur Specific [place] Urine Protein Urine Glucose (UA) Urine Ketones Urine Occult Blood Urine Nitrate Urine Bilirubin Urine Urobilinogen Ur Leukocyte Esterase Urine RBC Urine WBC Ur Squamous Epith Cells Micro UA Comment Ur Microscopic Review Urine Culture Comments 12/27/17 12/28/17 12/28/17 14:15 05:30 05:30 WBC 12.1 H RBC 2.91 L Hgb 8.9 L D Hct 26.4 L MCV 90.6 MCH 30.5 MCHC 33.6 RDW 13.4 Plt Count 163 MPV 8.2 Neut % (Auto) 88.4 H Lymph % (Auto) 5.0 L [place] % (Auto) 6.2 Eos % (Auto) 0.1 Baso % (Auto) 0.3 Neut # (Auto) 10.7 H Lymph # (Auto) 0.6 L [place] # (Auto) 0.7 Eos # (Auto) 0.0 Baso # (Auto) 0.0 WBC Differential . Differential Comment Auto diff final PT INR APTT Sodium 136 Potassium 3.9 Chloride 105 Carbon Dioxide 21.0 Anion Gap 10 BUN 30 H Creatinine 1.97 H Estimated GFR 24 L Random Glucose 144 H Calcium 8.1 L D Total Bilirubin AST ALT Alkaline Phosphatase Total Creatine Kinase Troponin I Total Protein Albumin Triglycerides 94 Cholesterol 123 LDL Cholesterol, Calc 47 HDL Cholesterol 57.6 Cholesterol/HDL Ratio 2.13 Vitamin B12 TSH Urine Color Yellow Urine Clarity Clear Urine pH 6.0 Ur Specific [place] 1.013 Urine Protein 100 H Urine Glucose (UA) Negative Urine Ketones Trace H Urine Occult Blood Small H Urine Nitrate Negative Urine Bilirubin Negative Urine Urobilinogen Less than 2 Ur Leukocyte Esterase Negative Urine RBC 1 Urine WBC Less than 1 Ur Squamous Epith Cells 1 Micro UA Comment Culture not ind Ur Microscopic Review Not Reportable Urine Culture Comments Culture not ind 12/28/17 05:30 WBC RBC Hgb Hct MCV MCH MCHC RDW Plt Count MPV Neut % (Auto) Lymph % (Auto) [place] % (Auto) Eos % (Auto) Baso % (Auto) Neut # (Auto) Lymph # (Auto) [place] # (Auto) Eos # (Auto) Baso # (Auto) WBC Differential Differential Comment PT INR APTT Sodium Potassium Chloride Carbon Dioxide Anion Gap BUN Creatinine Estimated GFR Random Glucose Calcium Total Bilirubin AST ALT Alkaline Phosphatase Total Creatine Kinase Troponin I Total Protein Albumin Triglycerides Cholesterol LDL Cholesterol, Calc HDL Cholesterol Cholesterol/HDL Ratio Vitamin B12 555 TSH 0.680 Urine Color Urine Clarity Urine pH Ur Specific [place] Urine Protein Urine Glucose (UA) Urine Ketones Urine Occult Blood Urine Nitrate Urine Bilirubin Urine Urobilinogen Ur Leukocyte Esterase Urine RBC Urine WBC Ur Squamous Epith Cells Micro UA Comment Ur Microscopic Review Urine Culture Comments - Imaging Impressions Carotid Doppler Study 12/27/17 00:00 CONCLUSION: 1. 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 2. Left Internal Carotid Artery: Findings indicate 50-69% stenosis. Chest X-Ray 12/27/17 00:00 CONCLUSION: No acute cardiopulmonary findings. No definite abnormality to explain the patient's rib pain identified. Head CT 12/27/17 11:19 CONCLUSION: 1. The patient's ventriculostomy shunt appears in good position. The size of the ventricles is stable compared to the previous examination. . Shunt Study 12/27/17 11:21 CONCLUSION: The ventriculoperitoneal shunt tubing appears intact. Abdomen/Bladder Ultrasound 12/28/17 00:00 CONCLUSION: Both kidneys are at the lower limits for normal in size. Both kidneys also demonstrate increased echogenicity suggesting medical renal disease. Assessment and Plan - Plan 87 y/o female with history of NPH- s/p INFORMATION SECURITY shunt placement, hypertension, dyslipidemia,hypothyroidism, CKD,who presented to ER with slurred speech and urinary incontinence. TIA vs CVA CT head with no acute abnormality with INFORMATION SECURITY shunt in good position. Echo done Carotid US shows bilateral stenosis 50-69% Consult Vascular surgery, appreciate assistance Neurology following, appreciate assistance Continue ASA and statin daily Obtain EEG, r/o seizure given h/o multiple episodes of "falling asleep" and urinary incontinence continue neuro checks Holter monitor continue continuous cardiac monitoring PT/OT/ST fall and seizure precautions Fever, Tmax 101.4 leukocytosis, mild now afebrile CXR neg UA unremarkable patient does not appear septic Blood cx pending, follow until finalized monitor temperature trend Normal Pressure Hydrocephalus; s/p INFORMATION SECURITY shunt placement 2007 shunt study showed intact INFORMATION SECURITY shunt. patient and family concerned about need for shunt revision, will consult Dr. Burris who placed the shunt in 2007, appreciate his assistance Hypertension received Clonidine and Vasotec in ER patient on Benicar at home TRACY on CKD stage 3 baseline appears to be around 1.6 to 1.7 Cr up to 1.97 today given Vasotec yesterday Renal US shows medical renal dz UA +proteinuria, no e/o UTI hold home Benicar avoid nephrotoxic agents continue to monitor BMP Hypothyroidism;chronic TSH WNL continue on Levothyroxine DVT prophylaxis with subq Heparin Code Status: DNR Discussed Condition With: patient, nursing staff, Dr. Draper Discharge Planning: Not ready for discharge
--- NOTE | 2017-12-28 12:15 | ECHRPT ---
Indication: CVA/TIA CONCLUSIONS The estimated LV EF is 55-60%. Normal LV size and wall thickness. No regional wall motion abnormalities. Grade 2 diastolic dysfunction. Mild mitral valve regurgitation. [id number] aortic valve regurgitation. There is mild tricuspid valve regurgitation. The estimated pulmonary arterial pressure is 52.5 mmHg. The IVC is normal size and has >50% collapse with inspiration reflecting normal CVP. No atrial level shunt is demonstrated by color flow Doppler interrogation. No prior for comparison. BP: / HR: 54 Rhythm: Sinus MEASUREMENTS (Male / Female) Normal Values Technical Quality:Fair 2D ECHO LV Diastolic Diameter PLAX 4.8 cm 4.2 - 5.9 / 3.9 - 5.3 cm LV Systolic Diameter PLAX 3.2 cm IVS Diastolic Thickness 1.0 cm 0.6 - 1.0 / 0.6 - 0.9 cm LVPW Diastolic Thickness 1.0 cm 0.6 - 1.0 / 0.6 - 0.9 cm LV Relative Wall Thickness 0.4 RV Internal Dim ED PLAX 2.0 cm LVOT Diameter 1.8 cm Aortic Root Diameter 3.1 cm LA Systolic Diameter LX 3.1 cm 3.0 - 4.0 / 2.7 - 3.8 cm M-MODE AV Cusp Separation MM 1.1 cm DOPPLER AV Peak Velocity 175.0 cm/s AV Peak Gradient 12.3 mmHg AV Mean Gradient 6.0 mmHg AV Velocity Time Integral 37.9 cm AI Peak Velocity 372.5 cm/s AI Peak Gradient 55.5 mmHg AI Pressure Half Time 478.5 ms LVOT Peak Velocity 131.0 cm/s LVOT Peak Gradient 6.9 mmHg LVOT Velocity Time Integral 24.5 cm AV Area Cont Eq vti 1.6 cm AV Area Cont Eq pk 1.9 cm Mitral E Point Velocity 107.0 cm/s Mitral A Point Velocity 119.0 cm/s Mitral E to A Ratio 0.9 LV E' Lateral Velocity 6.8 cm/s Mitral E to LV E' Lateral Ratio 15.7 LV E' Septal Velocity 7.3 cm/s Mitral E to LV E' Septal Ratio 14.6 TR Peak Velocity 326.0 cm/s TR Peak Gradient 42.5 mmHg Right Atrial Pressure 10.0 mmHg Pulmonary Artery Systolic Pressu 52.5 mmHg Right Ventricular Systolic Press 52.5 mmHg PV Peak Velocity 74.4 cm/s PV Peak Gradient 2.2 mmHg FINDINGS LEFT VENTRICLE Normal left ventricular size. Wall thickness is normal. The left ventricular systolic function is grossly normal on limited imaging. RIGHT VENTRICLE Normal right ventricular size and systolic function. LEFT ATRIUM The left atrial size is normal. RIGHT ATRIUM The right atrial size is normal. ATRIAL SEPTUM No atrial level shunt is demonstrated by color flow Doppler interrogation. AORTA The aortic root and proximal ascending aorta are not well visualized. MITRAL VALVE Mild mitral valve regurgitation. AORTIC VALVE Aortic valve sclerosis is present. Uqbl-nj-pocsocim aortic valve regurgitation. TRICUSPID VALVE There is mild tricuspid valve regurgitation. The estimated pulmonary arterial pressure is 52.5 mmHg. PULMONARY VALVE No pulmonary valve regurgitation or stenosis. VESSELS The inferior vena cava is normal in size. PERICARDIUM No pericardial effusion. Vijaya Venegas MD (Electronically Signed) Final Date:28 December 2017 12:15
--- NOTE | 2017-12-28 15:23 | ECG ---
Date Performed: 12/27/2017 Time Performed: 16:05:42 PTAGE: 87 years EKG: Sinus rhythm NONSPECIFIC T-WAVE ABNORMALITY BORDERLINE ECG Since the PREVIOUS TRACING , no significant change noted PREVIOUS TRACIN06/28/2016 15.17 DOCTOR: Cria Womack Interpretating Date/Time 12/28/2017 15:17:07
[2017-12-28 18:06] LABS: Hemoglobin A1c 5.4 % (4.3-6.0)
--- NOTE | 2017-12-28 20:10 | MG ---
cc: Tyrese Pascual MD EEG NUMBER: [id number] INDICATIONS: T4 electrode around an old incision site. An 87-year-old with slurred speech, confusion. MEDICATIONS: 1. Heparin. 2. Synthroid. DESCRIPTION: Shunt. An 8 Hz to 7 Hz diffuse rhythm is noted. Bifrontal muscle artifact is seen, makes interpretation difficult. Over the T4 electrode, there are some phase reversing slight sharply contoured alpha waves and maybe some focal slowing there, seen best in the transverse montage. Photic stimulation is not performed. Some bifrontal delta slowing may also be seen somewhat obscured by muscle artifact. IMPRESSION: Some focal slowing appears over the right midtemporal head region, sometimes slightly sharply contoured with some phase reversing there. This could indicate a propensity for seizures coming out of that region. Right temporal lobe abnormality should be ruled out. Tyrese Pascual MD DJM/ct , 07:15 PM , 07:19 PM
--- NOTE | 2017-12-28 20:11 | P.PNNEU ---
Subjective Subjective Comments: no new c/o Active Medications: Active Medications Acetaminophen (Tylenol) 650 mg PO Q4H PRN PRN Reason: FEVER Last Admin: 12/28/17 04:06 Dose: 650 mg Amlodipine Besylate (Norvasc) 5 mg PO DAILY [facility] Aspirin (Aspirin Chew) 162 mg PO DAILY [facility] Last Admin: 12/28/17 08:17 Dose: 162 mg Enalaprilat (Vasotec Inj) 1.25 mg IV.PUSH Q8H PRN PRN Reason: SBP > 200 or DBP > 120 Heparin Sodium (Porcine) (Heparin Inj) 5,000 units SQ Q12HR [facility] Last Admin: 12/28/17 08:17 Dose: 5,000 units Sodium Chloride (Ns Inj) 1,000 mls @ 42 mls/hr IV.CONT .[id number] [facility] Last Admin: 12/28/17 17:21 Dose: 84 mls/hr Levothyroxine Sodium (Synthroid) 88 mcg PO DAILY@0600 [facility] Last Admin: 12/28/17 05:13 Dose: 88 mcg Patient Own Medication: Zioptan 0.0015% Ophthalmic Solution ( Preservative-Free ) 0 each EACH EYE DAILY@1800 [facility] Pravastatin Sodium (Pravachol) 40 mg PO DAILY@1800 [facility] Last Admin: 12/28/17 17:53 Dose: 40 mg Sodium Chloride (Ns Flush) 2 ml IV.FLUSH PRN PRN PRN Reason: FLUSH AFTER USING IV ACCESS Last Admin: 12/27/17 13:47 Dose: 2 ml Allergies/Adverse Reactions: Allergies Allergy/AdvReac Type Severity Reaction Status Date / Time EYE DROPS Allergy Severe Swelling Uncoded 08/31/16 09:47 Physical Exam Vital signs: Vital Signs 12/27/17 23:37 12/28/17 03:44 12/28/17 08:00 Temperature 98.1 F 101.4 F H 97.6 F Pulse Rate 69 70 61 Respiratory Rate 19 20 20 Blood Pressure 157/63 H 144/63 H 133/57 L Pulse Oximetry 94 L 93 L 94 L 12/28/17 09:08 12/28/17 11:54 12/28/17 16:00 Temperature 97.6 F 101.9 F H Pulse Rate 55 L 79 80 Respiratory Rate 12 20 Blood Pressure 165/69 H 193/78 H Pulse Oximetry 100 93 L 12/28/17 17:17 Temperature Pulse Rate Respiratory Rate Blood Pressure 151/82 H Pulse Oximetry Intake & Output 12/28/17 12/28/17 12/29/17 06:59 18:59 06:59 Intake Total 1480 / 1480 1000 / 1000 Balance 1480 / 1480 1000 / 1000 Weight 59.874 kg Intake: IV 1000 / 1000 1000 / 1000 NS Inj 1,000 ML @ 84 mls/hr IV. 1000 / 1000 1000 / 1000 CONT .[id number] [facility] Rx#:[id number] Oral 480 / 480 Other: # Voids 2 - Routine Neurological Exam alert, speech is normal CN intact MOTOR 5/5 BUE and BLE Objective Laboratory Results - last 24 hr 12/28/17 12/28/17 12/28/17 05:30 05:30 05:30 WBC 12.1 H RBC 2.91 L Hgb 8.9 L D Hct 26.4 L MCV 90.6 MCH 30.5 MCHC 33.6 RDW 13.4 Plt Count 163 MPV 8.2 Neut % (Auto) 88.4 H Lymph % (Auto) 5.0 L Sherman % (Auto) 6.2 Eos % (Auto) 0.1 Baso % (Auto) 0.3 Neut # (Auto) 10.7 H Lymph # (Auto) 0.6 L Sherman # (Auto) 0.7 Eos # (Auto) 0.0 Baso # (Auto) 0.0 WBC Differential . Differential Comment Auto diff final Sodium 136 Potassium 3.9 Chloride 105 Carbon Dioxide 21.0 Anion Gap 10 BUN 30 H Creatinine 1.97 H Estimated GFR 24 L Random Glucose 144 H Calcium 8.1 L D Triglycerides 94 Cholesterol 123 LDL Cholesterol, Calc 47 HDL Cholesterol 57.6 Cholesterol/HDL Ratio 2.13 Vitamin B12 555 TSH 0.680 Review/Management - Diagnosis (1) TIA (transient ischemic attack) Code(s): G45.9 - Transient cerebral ischemic attack, unspecified Status: Acute Current Visit: Yes - Review/Management Plan: probable TIA--continue low dose aspirin NPH--ventrilce size is stable . Shunt is stable
--- NOTE | 2017-12-28 21:04 | MB ---
cc: La Frausto MD DATE: 12/28/2017 CONSULTING PHYSICIAN: La Frausto MD, of vascular surgery. REASON FOR CONSULTATION: Bilateral carotid plaques, possible stroke. HISTORY OF PRESENT ILLNESS: This 87-year-old lady presented to the emergency room with slurred speech and confusion as well as urinary incontinence. The patient was noted not to have lost consciousness, but her daughter states she was incontinent and incoherent. The patient was admitted, and in the meantime, this resolved. However, this afternoon, the patient is getting again slightly worse. A question arose about any surgical implications of vascular disease causing this. PAST SURGICAL HISTORY: [employer] shunt placement for normal pressure hydrocephalus, bilateral inguinal hernia repairs at different times in the last 2 years, 1 for incarceration and 1 electively, shoulder surgery. PAST MEDICAL HISTORY: Hypertension, chronic renal insufficiency, glaucoma, hyperlipidemia, hypothyroidism. SOCIAL HISTORY: The patient does not smoke or drink. It should be noted that the patient did smoke for many years and stopped. In addition, it should be noted that the patient, per her family, has lost about 25-30 pounds in a very short period of time and was allegedly worked up by her family practice physician, but no clear cause was determined and the patient keeps going. PHYSICAL EXAMINATION: GENERAL: Reveals a pleasant 87-year-old lady. HEENT: Normocephalic. No trauma to the head. Pupils equal, reactive. Extraocular muscles intact. The patient appears to be gaunt and weak. NECK: Bilateral carotid pulses. On the right side, I can palpate the ventriculoperitoneal shunt as it courses posterior to the sternocleidomastoid muscle. CHEST: Bilateral breath sounds. 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 HEART: Regular rhythm. ABDOMEN: Soft. No rebound, no guarding, no masses. EXTREMITIES: The patient has bilateral femoral, popliteal, dorsalis pedis and posterior tibial pulses. No signs of vascular deficits. BACK: Normal. NEUROLOGIC: The patient is awake, alert and oriented; however, has expressive aphasia, unable to form words and probably some degree of receptive aphasia in addition as she does not quite understand all the time what I am saying to her. Motorically, she seems to be intact and equal bilateral with no lateralization. IMPRESSION AND RECOMMENDATIONS: I reviewed the laboratory and diagnostic procedures. This lady does have a carotid ultrasound that reveals bilateral bulky plaques in the bifurcations; however, no significant stenosis, possibly 60% to 70% bilateral. At this point, I believe it is appropriate to do a CTA of the carotids. This should be clearly associated with a caveat for this is an elderly lady and her candidacy for carotid surgery is limited. While the patient is a candidate for surgery, she should be also be considered for endovascular stenting should there be stenosis there. The Society of Vascular Surgery does recommend to avoid surgery in patients who have less than 4 years of life left by some sort of a fairly subjective criteria generalized in nature. In this particular situation, this lady is 87 years old and she has had quite a functional decline in the last year or so associated with loss of weight, weakness and inability to walk distances and such. Therefore, the whole workup is conditional on the patient being able to tolerate the procedure should this become necessary. If the course of therapy is not going to be changed by the findings of the CT scan, then obviously, it may be overkill. In this case, I will order a CTA of the carotids. While the patient's creatinine is a little elevated, we can probably bring it down in a day or 2 and then do the carotid study. This one can be done probably with about 100 mL of contrast and minimal load as far as renal function is concerned. I thank you very much for this referral. I will continue to follow the patient with you and we will see which way this goes. MD TAMIR Russo/sloane , 06:36 PM , 06:50 PM
[2017-12-28] MEDS: amLODIPine 5 MG Tablet PO SCH (21:41)
[2017-12-29] MEDS: Acetaminophen 325 MG Tablet PO PRN ×3 (00:43→22:08)
[2017-12-29 04:01] LABS: Calcium 8.3 mg/dL (8.5-10.1); Carbon Dioxide 20.3 meq/L (21.0-32.0); Potassium 3.9 meq/L (3.5-5.1)
[2017-12-29] MEDS: Sod Chloride 0.9% Inj 1,000 ML IV.CONT SCH (04:51)
--- NOTE | 2017-12-29 07:23 | P.PN ---
Subjective Interval history: Follow-up on patient with episode of slurred speech, urinary incontinence. Patient seen and examined. Patient complains of increased cough. She denies any sputum production. Patient's been spiking high fevers. She denies any complaints of chest pain and states that the pain that she had on the right side is now gone. She denies any shortness of breath at rest however when patient got up with PT earlier today she desatted into the low 80s. She denies any nausea, vomiting or abdominal pain. Physical Exam Vital signs: Vital Signs 12/28/17 08:00 12/28/17 09:08 12/28/17 11:54 Temperature 97.6 F 97.6 F Pulse Rate 61 55 L 79 Respiratory Rate 20 12 Blood Pressure 133/57 L 165/69 H Pulse Oximetry 94 L 100 12/28/17 16:00 12/28/17 17:17 12/28/17 20:00 Temperature 101.9 F H 98.0 F Pulse Rate 80 76 Respiratory Rate 20 18 Blood Pressure 193/78 H 151/82 H 166/70 H Pulse Oximetry 93 L 99 12/29/17 00:00 12/29/17 00:44 12/29/17 03:58 Temperature 103.0 F H 101.4 F H 98.2 F Pulse Rate 83 61 Respiratory Rate 19 18 Blood Pressure 168/72 H 130/64 Pulse Oximetry 100 95 Intake & Output 12/28/17 12/29/17 12/29/17 18:59 06:59 18:59 Intake Total 1000 / 1000 950 / 950 Balance 1000 / 1000 950 / 950 Intake: IV 1000 / 1000 950 / 950 NS Inj 1,000 ML @ 42 mls/hr IV. 1000 / 1000 950 / 950 CONT .[id number] [facility] Rx#:[id number] Narrative: GENERAL: Well-developed well-nourished elderly female patient, no acute distress. Awake and alert. Family is at the bedside. Does not appear to be in any respiratory distress. SKIN: Warm and dry. No rash. HEENT: Atraumatic. Normocephalic. No facial asymmetry appreciated.Pupils equal and round. No scleral icterus. No injection or drainage. No nasal bleeding or discharge. Mucous membranes pink and moist. NECK: Trachea midline. CARDIOVASCULAR: Regular rate and rhythm. RESPIRATORY: No accessory muscle use. +rhonchi in right lower lung magallon. GASTROINTESTINAL: Abdomen soft, non-tender, nondistended. +BS. MUSCULOSKELETAL: Extremities without clubbing, cyanosis, or edema. No obvious deformities. NEUROLOGICAL: Awake and alert. No obvious cranial nerve deficits. Motor grossly within normal limits. Able to move all extremities spontaneously. No focal weakness appreciated. Normal speech. PSYCHIATRIC: Appropriate mood and affect. Results - Labs CBC & Chem 7: 12/29/17 06:20 12/29/17 02:27 Laboratory Results - last 24 hr 12/28/17 12/28/17 12/28/17 05:30 05:30 19:02 D-Dimer Quant (PE/DVT) 3.36 H Sodium Potassium Chloride Carbon Dioxide Anion Gap BUN Creatinine Estimated GFR Random Glucose Hemoglobin A1c 5.4 Calcium Vitamin B12 555 TSH 0.680 12/29/17 02:27 D-Dimer Quant (PE/DVT) Sodium 139 Potassium 3.9 Chloride 107 Carbon Dioxide 20.3 L Anion Gap 12 BUN 35 H Creatinine 2.00 H Estimated GFR 24 L Random Glucose 113 H Hemoglobin A1c Calcium 8.3 L Vitamin B12 TSH - Imaging Impressions Abdomen/Bladder Ultrasound 12/28/17 00:00 CONCLUSION: Both kidneys are at the lower limits for normal in size. Both kidneys also demonstrate increased echogenicity suggesting medical renal disease. Assessment and Plan - Plan 87 y/o female with history of NPH- s/p [employer] shunt placement, hypertension, dyslipidemia,hypothyroidism, CKD,who presented to ER with slurred speech and urinary incontinence. Sepsis with fever T-max 103, leukocytosis with elevated white count of 16.5, bandemia 11% with source of right lower lobe pneumonia -IV antibiotics -blood cx with no growth x 1 day, repeat BCX pending -Lactic acid 2.0 -supportive care -monitor temp trend and white count RLL PNA CXR shows new airspace consolidation in the right lower lung zone suspicious for pneumonia, images reviewed by me -Begin IV Rocephin and azithromycin -sputum cx -Duonebs scheduled -IS and acapella -Supplemental oxygen as needed -Obtain urine Legionella and pneumococcal Suspected TIA possible seizure CT head with no acute abnormality with [employer] shunt in good position. 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 Plan to order CTA of carotids once creatinine improves -Neurology following, appreciate assistance -Continue ASA and statin daily -Start on Keppra 500 mg p.o. and await further recommendations by neurology -continue neuro checks -Holter monitor -continue continuous cardiac monitoring -PT/OT/ST -fall and seizure precautions Normal Pressure Hydrocephalus; s/p [employer] shunt placement 2007 shunt study showed intact [employer] shunt. -Evaluated by neurosurgery, appreciate assistance. Low concern for shunt malfunction. Recommends follow-up with Dr. Burris as outpatient in 2 weeks. Hypertension, not well controlled received Clonidine and Vasotec in ER patient on Benicar at home, on hold / TRACY -Increase amlodipine to 10 mg daily -Clonidine as needed with parameters -Continue to monitor BP and adjust treatment accordingly TRACY on CKD stage 3 baseline appears to be around 1.6 to 1.7 Cr up to 2.00 Renal US shows medical renal dz UA +proteinuria, no e/o UTI -continue to hold home Benicar -avoid nephrotoxic agents -continue to monitor BMP, repeat labs in am Hypothyroidism;chronic TSH WNL -continue on Levothyroxine DVT prophylaxis with subq Heparin Code Status: DNR Discussed Condition With: patient, family, Dr. Zhang Discharge Planning: Not ready for discharge. Discharge pending clinical improvement.
[2017-12-29 07:28] LABS: Baso % (Auto) 0.3 % (0.0-2.0); Hematocrit 32.1 % (35.0-46.0); Hemoglobin 10.8 gm/dL (11.6-15.3); Lymph # (Auto) 0.7 th/mm3 (1.0-4.8); Lymph % (Auto) 4.2 % (9.0-44.0); Mean Corpuscular HGB Conc 33.5 % (32.0-36.0); Mean Corpuscular Hemoglobin 29.9 pg (27.0-34.0); Mean Corpuscular Volume 89.1 fL (80.0-100.0); Mean Platelet Volume 8.8 fL (7.0-11.0); Mono % (Auto) 5.9 % (0.0-8.0); Neut # (Auto) 14.7 th/mm3 (1.8-7.7); Neut % (Auto) 89.6 % (16.0-70.0); Platelet Count 175 th/mm3 (150-450); Red Cell Distribution Width 13.5 % (11.6-17.2); White Blood Count 16.5 th/mm3 (4.0-11.0)
[2017-12-29] MEDS: Levothyroxine 88 MCG Tablet PO SCH (07:45)
[2017-12-29 08:48] LABS: Lymphocytes 4 % (9-44); Monocytes 5 % (0-8); Platelet Estimate Normal (Normal); Platelet Morphology Normal (Normal)
--- NOTE | 2017-12-29 08:54 | P.CONNS ---
History of Present Illness Primary Care Provider: Yoni Carrasco MD Chief Complaint: Evaluate CHILD CARE ASSISTANT shunt in setting of urinary incontinence History of Present Illness: Ms. Carlson is an 87 y/o female who underwent a right CHILD CARE ASSISTANT shunt by Dr. Burris ~ 10 years ago for normal pressure hydrocephalus (primary symptom of gait disturbance). She presented to the ED on 12/27/17 because she had three episodes of urinary incontinence (could not reach the bathroom in time) and " did not feel like myself" throughout the day, falling asleep when seated. She underwent a head CT and shunt series. Ventricular size on the head CT is stable from last year's head CT. Shunt series without evidence of discontinuity. On examination, she states that she has had one further episode of urinary incontinence while inpatient. She recognized the need to urinate, but was told to stay in bed and did not have staff assistance in time to reach the bedside commode. She denies having been dysarthric on presentation. She states that her gait is normal and she has not fallen recently. Of note, she has evidence of a right temporal craniotomy for which she cannot remember the indication. Review of Systems All other systems reviewed negative except as stated in HPI PMFSH - History History Provided By: Patient - Medical History Medical History: Medical History (Last Reviewed 12/29/17 @ 08:56 by Librado Werner MD) Hydrocephalus Hypertension Renal disease Glaucoma Hyperlipidemia Hypothyroid - Surgical History Surgical History: Surgical History (Last Reviewed 12/29/17 @ 08:56 by Librado Werner MD) H/O shoulder surgery CHILD CARE ASSISTANT (ventriculoperitoneal) shunt status - Family History Family History: Family History (Last Reviewed 12/29/17 @ 08:56 by Librado Werner MD) Other CVA (cerebral vascular accident) - Tobacco History Second Hand Smoke Exposure: No Tobacco Use In Past 30 Days: No Smoking Status: Former smoker Tobacco Type: Cigarettes - Alcohol History How Often Do You Have a Drink Containing Alcohol: Monthly or less - Substance Use History Substance History: No History of Abuse - Travel History Recent Travel in the [place] Within the Last 8 Weeks: No Recent Travel Out of the Country Within the Last 8 Weeks: No - Immunization History Tetanus Immunization: <5 Years Medications and Allergies Active Medications: Active Medications Acetaminophen (Tylenol) 650 mg PO Q4H PRN PRN Reason: FEVER Last Admin: 12/29/17 00:43 Dose: 650 mg Amlodipine Besylate (Norvasc) 5 mg PO DAILY [facility] Last Admin: 12/28/17 21:41 Dose: 5 mg Aspirin (Aspirin Chew) 162 mg PO DAILY [facility] Last Admin: 12/28/17 08:17 Dose: 162 mg Enalaprilat (Vasotec Inj) 1.25 mg IV.PUSH Q8H PRN PRN Reason: SBP > 200 or DBP > 120 Heparin Sodium (Porcine) (Heparin Inj) 5,000 units SQ Q12HR [facility] Last Admin: 12/28/17 21:45 Dose: 5,000 units Sodium Chloride (Ns Inj) 1,000 mls @ 42 mls/hr IV.CONT .[id number] [facility] Last Admin: 12/29/17 04:51 Dose: 42 mls/hr Levetiracetam (Keppra) 500 mg PO BID [facility] Levothyroxine Sodium (Synthroid) 88 mcg PO DAILY@0600 [facility] Last Admin: 12/29/17 07:45 Dose: 88 mcg Patient Own Medication: Zioptan 0.0015% Ophthalmic Solution ( Preservative-Free ) 0 each EACH EYE DAILY@1800 [facility] Pravastatin Sodium (Pravachol) 40 mg PO DAILY@1800 [facility] Last Admin: 12/28/17 17:53 Dose: 40 mg Sodium Chloride (Ns Flush) 2 ml IV.FLUSH PRN PRN PRN Reason: FLUSH AFTER USING IV ACCESS Last Admin: 12/27/17 13:47 Dose: 2 ml Allergies Allergy/AdvReac Type Severity Reaction Status Date / Time EYE DROPS Allergy Severe Swelling Uncoded 08/31/16 09:47 Home Medications Medication Instructions Recorded Confirmed Type levothyroxine [Synthroid] 88 mcg PO DAILY 12/27/17 12/27/17 History olmesartan [Benicar] 20 mg PO DAILY 12/27/17 12/27/17 History simvastatin 20 mg PO QPM 12/27/17 12/27/17 History tafluprost (PF) [Zioptan (PF)] 1 drp OPHTHALMIC (EYE) QPM 12/27/17 12/27/17 History vit C-vit [id number] 1 cap PO DAILY 12/27/17 12/27/17 History [Ocuvite] Exam Vital signs: Vital Signs 12/28/17 09:08 12/28/17 11:54 12/28/17 16:00 Temperature 97.6 F 101.9 F H Pulse Rate 55 L 79 80 Respiratory Rate 12 20 Blood Pressure 165/69 H 193/78 H Pulse Oximetry 100 93 L 12/28/17 17:17 12/28/17 20:00 12/29/17 00:00 Temperature 98.0 F 103.0 F H Pulse Rate 76 83 Respiratory Rate 18 19 Blood Pressure 151/82 H 166/70 H 168/72 H Pulse Oximetry 99 100 12/29/17 00:44 12/29/17 03:58 12/29/17 08:00 Temperature 101.4 F H 98.2 F 99.1 F Pulse Rate 61 87 Respiratory Rate 18 16 Blood Pressure 130/64 189/80 H Pulse Oximetry 95 94 L Intake & Output 12/28/17 12/29/17 12/29/17 18:59 06:59 18:59 Intake Total 1000 / 1000 950 / 950 Balance 1000 / 1000 950 / 950 Intake: IV 1000 / 1000 950 / 950 NS Inj 1,000 ML @ 42 mls/hr IV. 1000 / 1000 950 / 950 CONT .[id number] [facility] Rx#:[id number] Narrative: Standing in room at bedside. Eyes open spontaneously Pleasant affect Alert and oriented to self, place, and time EOMI PERRL No facial droop Trapezius 5/5 Tongue midline Follows commands x4 with full strength No pronator drift Slightly dyspneic CHILD CARE ASSISTANT shunt reservoir refills with ease on palpation Results - Laboratory Findings CBC and BMP: 12/29/17 06:20 12/29/17 02:27 Abnormal lab findings: Abnormal Labs 12/27/17 12/27/17 12/27/17 11:30 11:30 14:15 WBC 12.8 H RBC 3.67 L Hgb 11.0 L Hct 32.9 L Neut % (Auto) 89.7 H Lymph % (Auto) 4.0 L Neut # (Auto) 11.5 H Lymph # (Auto) 0.5 L Rains # (Auto) Seg Neuts % (Manual) Band Neuts % (Manual) Lymphocytes % (Manual) Abs Neuts (Manual) D-Dimer Quant (PE/DVT) Carbon Dioxide BUN 27 H Creatinine 1.77 H Estimated GFR 27 L Random Glucose Calcium Troponin I Less than 0.02 L Albumin 3.3 L Urine Protein 100 H Urine Ketones Trace H Urine Occult Blood Small H 12/28/17 12/28/17 12/28/17 05:30 05:30 19:02 WBC 12.1 H RBC 2.91 L Hgb 8.9 L D Hct 26.4 L Neut % (Auto) 88.4 H Lymph % (Auto) 5.0 L Neut # (Auto) 10.7 H Lymph # (Auto) 0.6 L Rains # (Auto) Seg Neuts % (Manual) Band Neuts % (Manual) Lymphocytes % (Manual) Abs Neuts (Manual) D-Dimer Quant (PE/DVT) 3.36 H Carbon Dioxide BUN 30 H Creatinine 1.97 H Estimated GFR 24 L Random Glucose 144 H Calcium 8.1 L D Troponin I Albumin Urine Protein Urine Ketones Urine Occult Blood 12/29/17 12/29/17 02:27 06:20 WBC 16.5 H RBC 3.60 L Hgb 10.8 L Hct 32.1 L Neut % (Auto) 89.6 H Lymph % (Auto) 4.2 L Neut # (Auto) 14.7 H Lymph # (Auto) 0.7 L Rains # (Auto) 1.0 H Seg Neuts % (Manual) 80 H Band Neuts % (Manual) 11 H Lymphocytes % (Manual) 4 L Abs Neuts (Manual) 15.0 H D-Dimer Quant (PE/DVT) Carbon Dioxide 20.3 L BUN 35 H Creatinine 2.00 H Estimated GFR 24 L Random Glucose 113 H Calcium 8.3 L Troponin I Albumin Urine Protein Urine Ketones Urine Occult Blood - Diagnostic Findings Additional findings: Ventricular size on the head CT is stable from last year's head CT. There is evidence of a right temporal craniotomy. Shunt series without evidence of discontinuity. Assessment and Plan - Plan 87 y/o female who presented to the ED out of concern for dysarthria, urinary incontinence, and lethargy. She has returned to her neurologic baseline. Cranial imaging reassuring. Low concern for shunt malfunction. Typically shunt malfunction in the setting of NPH would present more insidiously (i.e. with slow, progressive return of original symptoms (gait disturbance, urinary incontinence, memory dysfunction)). In her presentation, she had three acute episodes of urinary incontinence that she attributes to being unable to ambulate to the restroom in time. She has had urinary control while hospitalized. She denies gait disturbance. She has fairly good recollection of events in her life, remote and recent. Plan: Follow-up with Dr. Burris in outpatient setting in 2 weeks to assure resolution of symptoms. If she develops progressive return of the triad of NPH, can consider further shunt investigation. Very low suspicion for shunt malfunction at this time.
--- NOTE | 2017-12-29 10:31 | P.PNVS ---
Subjective Subjective/Hospital Course: 12/29/2017 I reviewed the laboratory and diagnostic procedures. This lady does have a carotid ultrasound that reveals bilateral bulky plaques in the bifurcations; however, no critical stenosis, possibly 60% to 70% bilateral. At this point, I believe it is appropriate to do a CTA of the carotids. This should be clearly associated with a caveat for this is an elderly lady and her candidacy for carotid surgery is limited. While the patient is a candidate for surgery, she should be also be considered for endovascular stenting should there be stenosis there. The Society of Vascular Surgery does recommend to avoid surgery in patients who have less than 4 years of life left by some sort of a fairly subjective criteria generalized in nature. In this particular situation, this lady is 87 years old and she has had quite a functional decline in the last year or so associated with loss of weight, weakness and inability to walk distances and such. Therefore, the whole workup is conditional on the patient being able to tolerate the procedure should this become necessary. If the course of therapy is not going to be changed by the findings of the CT scan, then obviously, it may be overkill. In this case, I will order a CTA of the carotids once creatinine comes down. While the patient's creatinine is a little elevated, we can probably bring it down in a day or 2 and then do the carotid study. This one can be done probably with about 100 mL of contrast and minimal load as far as renal function is concerned. Today creatinine is little bit up so I would certainly avoid study that may not change the course of therapy as it is Neurosurgery evaluation is greatly appreciated We will continue to follow Objective Vital Signs / I&O: Vital Signs 12/28/17 11:54 12/28/17 16:00 12/28/17 17:17 Temperature 97.6 F 101.9 F H Pulse Rate 79 80 Respiratory Rate 12 20 Blood Pressure 165/69 H 193/78 H 151/82 H Pulse Oximetry 100 93 L 12/28/17 20:00 12/29/17 00:00 12/29/17 00:44 Temperature 98.0 F 103.0 F H 101.4 F H Pulse Rate 76 83 Respiratory Rate 18 19 Blood Pressure 166/70 H 168/72 H Pulse Oximetry 99 100 12/29/17 03:58 12/29/17 08:00 Temperature 98.2 F 99.1 F Pulse Rate 61 87 Respiratory Rate 18 16 Blood Pressure 130/64 189/80 H Pulse Oximetry 95 94 L Intake & Output 12/28/17 12/29/17 12/29/17 18:59 06:59 18:59 Intake Total 1000 / 1000 950 / 950 Balance 1000 / 1000 950 / 950 Intake: IV 1000 / 1000 950 / 950 NS Inj 1,000 ML @ 42 mls/hr IV. 1000 / 1000 950 / 950 CONT .[id number] [facility] Rx#:[id number] Laboratory Results - last 24 hr 12/28/17 12/28/17 12/29/17 05:30 19:02 02:27 WBC RBC Hgb Hct MCV MCH MCHC RDW Plt Count MPV Prelim Diff (Auto) Neut % (Auto) Lymph % (Auto) [place] % (Auto) Eos % (Auto) Baso % (Auto) Neut # (Auto) Lymph # (Auto) [place] # (Auto) Eos # (Auto) Baso # (Auto) WBC Differential Seg Neuts % (Manual) Band Neuts % (Manual) Lymphocytes % (Manual) Monocytes % (Manual) Abs Neuts (Manual) Differential Comment Platelet Estimate Platelet Morphology D-Dimer Quant (PE/DVT) 3.36 H Sodium 139 Potassium 3.9 Chloride 107 Carbon Dioxide 20.3 L Anion Gap 12 BUN 35 H Creatinine 2.00 H Estimated GFR 24 L Random Glucose 113 H Hemoglobin A1c 5.4 Calcium 8.3 L 12/29/17 06:20 WBC 16.5 H RBC 3.60 L Hgb 10.8 L Hct 32.1 L MCV 89.1 MCH 29.9 MCHC 33.5 RDW 13.5 Plt Count 175 MPV 8.8 Prelim Diff (Auto) Slide review pending Neut % (Auto) 89.6 H Lymph % (Auto) 4.2 L [place] % (Auto) 5.9 Eos % (Auto) 0.0 Baso % (Auto) 0.3 Neut # (Auto) 14.7 H Lymph # (Auto) 0.7 L [place] # (Auto) 1.0 H Eos # (Auto) 0.0 Baso # (Auto) 0.0 WBC Differential Manual diff final Seg Neuts % (Manual) 80 H Band Neuts % (Manual) 11 H Lymphocytes % (Manual) 4 L Monocytes % (Manual) 5 Abs Neuts (Manual) 15.0 H Differential Comment . Platelet Estimate Normal Platelet Morphology Normal D-Dimer Quant (PE/DVT) Sodium Potassium Chloride Carbon Dioxide Anion Gap BUN Creatinine Estimated GFR Random Glucose Hemoglobin A1c Calcium Impressions Carotid Doppler Study 12/27/17 00:00 CONCLUSION: 1. 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 2. Left Internal Carotid Artery: Findings indicate 50-69% stenosis. Chest X-Ray 12/27/17 00:00 CONCLUSION: No acute cardiopulmonary findings. No definite abnormality to explain the patient's rib pain identified. Head CT 12/27/17 11:19 CONCLUSION: 1. The patient's ventriculostomy shunt appears in good position. The size of the ventricles is stable compared to the previous examination. . Shunt Study 12/27/17 11:21 CONCLUSION: The ventriculoperitoneal shunt tubing appears intact. Abdomen/Bladder Ultrasound 12/28/17 00:00 CONCLUSION: Both kidneys are at the lower limits for normal in size. Both kidneys also demonstrate increased echogenicity suggesting medical renal disease.
[2017-12-29] MEDS ORDERED: Piperacil/Tazo 3.375 GM Premix 50 ML IV.SIG SCH (10:32)
--- NOTE | 2017-12-29 11:41 | XR ---
EXAM DATE: 12/29/2017 12:00 AM EDT AGE/SEX: 87 years / Female INDICATIONS: Slurred Speech, Fever CLINICAL DATA: This is the patient's subsequent encounter. Patient reports that signs and symptoms h ave been present for 3 days and indicates a pain score of 4/10. MEDICAL/SURGICAL HISTORY: . Hypertension. Glaucoma . . TRADEMARK ATTORNEY shunt COMPARISON: [facility], CHEST 1V SINGLE AP, 12/27/2017. . FINDINGS: Portable AP view of the chest demonstrates a normal-sized cardiac silhouette with calcification of th e aorta. Tubing overlying the right chest most likely represents a TRADEMARK ATTORNEY shunt tubing. There is new airs pace consolidation in the right lower lung zone with slight blunting of the right costophrenic sulcus . No pneumothorax is identified. The bones and soft tissues demonstrate no acute abnormality. There i s hardware in the proximal right humerus. CONCLUSION: New airspace consolidation in the right lower lung zone suspicious for pneumonia given the history of fever. There is also a small right pleural effusion. Electronically signed by: Abe Townsend MD 12/29/2017 11:40 AM EDT
[2017-12-29] MEDS ORDERED: Piperacil/Tazo 2.25 GM Premix 50 ML IV.SIG SCH (12:00)
[2017-12-29] MEDS ORDERED: Piperacil/Tazo 4.5 GM Premix 4.5 GM/100 ML BAG IV.SIG SCH (12:00)
[2017-12-29] MEDS: Heparin - SQ 10,000 UNITS/ML Vial SQ SCH ×2 (12:04→22:08)
[2017-12-29] MEDS: amLODIPine 5 MG Tablet PO SCH (12:04)
[2017-12-29] MEDS: levETIRAcetam 500 MG Tablet PO SCH ×2 (12:04→22:08)
[2017-12-29] MEDS: Azithromycin Inj 500 MG in Sodium Chlor 0.9% Inj 250 ML IV.SIG SCH (12:44)
[2017-12-29 14:06] LABS: Bacteria,Urine Rare /hpf; Bilirubin,Urine Negative (Negative); Clarity,Urine Hazy (Clear); Color,Urine Yellow (Yellw/Straw); Glucose,Urine (UA) Negative (Negative); Leukocyte Esterase,Urine Small (Negative); Mucus,Urine Few /lpf (Occasional); Nitrite,Urine Negative (Negative); Specific Gravity,Urine 1.013 (1.002-1.035); Squamous Epithelial Cell,Urine 1 /hpf (0-5)
[2017-12-29] MEDS ORDERED: amLODIPine 5 MG Tablet PO ONE (14:15)
--- NOTE | 2017-12-29 15:01 | NM ---
EXAM DATE: 12/29/2017 12:53 PM EDT AGE/SEX: 87 years / Female INDICATIONS: Embolus. CLINICAL DATA: This is the patient's initial encounter. Patient reports that signs and symptoms have been present for 2 days and indicates a pain score of 0/10. MEDICAL/SURGICAL HISTORY: Hypertension. Hypothyroidism. Renal disease. Glaucoma, hydrocephal us, and hyperlipidemia. . Shoulder surgery and ventriculoperitoneal shunt. COMPARISON: [facility], CHEST 1V SINGLE AP, 12/29/2017. . DOSE: 0.75 mCi Tc99m DTPA aerosol 8.8 mCi Tc99m MAA IV TECHNIQUE: Following five minutes of tidal breathing of DTPA aerosol, planar images of the lungs wer e performed in eight projections. The patient was then injected with MAA, and eight-view perfusion s can was performed. FINDINGS: There is patchy aerosol delivery to the periphery of both lungs. No focal ventilatory defects are se en. The perfusion lung scan demonstrates a homogenous pattern of uptake in both lungs. No segmental or s ubsegmental defects are seen. CONCLUSION: 1. The examination is negative for pulmonary embolus. Electronically signed by: Jay Bah MD 12/29/2017 2:59 PM EDT
[2017-12-30 06:44] LABS: Baso % (Auto) 0.3 % (0.0-2.0); Hematocrit 31.3 % (35.0-46.0); Hemoglobin 10.5 gm/dL (11.6-15.3); Lymph # (Auto) 0.2 th/mm3 (1.0-4.8); Lymph % (Auto) 1.9 % (9.0-44.0); Mean Corpuscular HGB Conc 33.5 % (32.0-36.0); Mean Corpuscular Volume 89.6 fL (80.0-100.0); Mean Platelet Volume 8.8 fL (7.0-11.0); Mono # (Auto) 0.5 th/mm3 (0.0-0.9); Mono % (Auto) 4.3 % (0.0-8.0); Neut # (Auto) 11.5 th/mm3 (1.8-7.7); Neut % (Auto) 93.5 % (16.0-70.0); Platelet Count 205 th/mm3 (150-450); Red Cell Distribution Width 13.6 % (11.6-17.2); White Blood Count 12.3 th/mm3 (4.0-11.0)
[2017-12-30] MEDS: Sod Chloride 0.9% Inj 1,000 ML IV.CONT SCH (06:45)
[2017-12-30 07:27] LABS: Calcium 8.4 mg/dL (8.5-10.1); Potassium 3.9 meq/L (3.5-5.1)
--- NOTE | 2017-12-30 07:27 | P.PN ---
Subjective Interval history: Follow-up on patient with Legionella pneumonia. Patient seen and examined. Patient states she feels better today. She reports having more energy. She reports less cough. She denies any fever or chills. She denies any chest pain or shortness of breath. She denies any nausea, vomiting or abdominal pain. Physical Exam Vital signs: Vital Signs 12/29/17 08:00 12/29/17 12:00 12/29/17 12:17 Temperature 99.1 F 99.5 F Pulse Rate 87 85 49 L Respiratory Rate 16 16 17 Blood Pressure 189/80 H 148/65 H Pulse Oximetry 94 L 12/29/17 12:44 12/29/17 12:50 12/29/17 16:30 Temperature 101.5 F H Pulse Rate Respiratory Rate Blood Pressure Pulse Oximetry 97 98 12/29/17 17:09 12/29/17 19:23 12/29/17 20:00 Temperature 103.4 F H 101.0 F H Pulse Rate 100 H 89 79 Respiratory Rate 16 18 Blood Pressure 168/82 H 115/53 L Pulse Oximetry 93 L 94 L 12/29/17 22:11 12/30/17 00:00 12/30/17 04:00 Temperature 99.4 F 98.6 F Pulse Rate 89 79 87 Respiratory Rate 16 18 20 Blood Pressure 130/58 L 168/71 H Pulse Oximetry 95 95 93 L Intake & Output 12/29/17 12/30/17 12/30/17 18:59 06:59 18:59 Intake Total 350 / 350 1000 / 1000 Balance 350 / 350 1000 / 1000 Weight 59.874 kg Intake: IV 350 / 350 1000 / 1000 NS Inj 1,000 ML @ 42 mls/hr IV. 1000 / 1000 CONT .[id number] SHIN Rx#:[id number] Azithromycin Inj 500 MG In NS 250 / 250 Inj 250 ML @ 250 mls/hr IV.SIG Q24H SHIN Rx#:[id number] Rocephin Inj 2,000 MG In NS Inj 100 / 100 100 ML @ 200 mls/hr IV.SIG Q24H SHIN Rx#:[id number] Other: # Voids 4 Date of Last Bowel Movement 12/28/17 12/28/17 Narrative: GENERAL: Well-developed well-nourished elderly female patient, no acute distress. Awake and alert. Appears comfortable. SKIN: Warm and dry. No rash. HEENT: Atraumatic. Normocephalic. Pupils equal and round. No scleral icterus. No injection or drainage. No nasal bleeding or discharge. Mucous membranes pink and moist. NECK: Trachea midline. CARDIOVASCULAR: Regular rate and rhythm. RESPIRATORY: No accessory muscle use. Decreased bibasilar. No rhonchi or wheezing appreciated. GASTROINTESTINAL: Abdomen soft, non-tender, nondistended. +BS. MUSCULOSKELETAL: Extremities without clubbing, cyanosis, or edema. No obvious deformities. NEUROLOGICAL: Awake and alert. No obvious cranial nerve deficits. Motor grossly within normal limits. Able to move all extremities spontaneously. No focal weakness appreciated. Normal speech. PSYCHIATRIC: Appropriate mood and affect. Results - Labs CBC & Chem 7: 12/30/17 06:00 12/30/17 06:00 Laboratory Results - last 24 hr 12/29/17 12/29/17 12/29/17 06:20 12:09 12:09 WBC 16.5 H RBC 3.60 L Hgb 10.8 L Hct 32.1 L MCV 89.1 MCH 29.9 MCHC 33.5 RDW 13.5 Plt Count 175 MPV 8.8 Prelim Diff (Auto) Slide review pending Neut % (Auto) 89.6 H Lymph % (Auto) 4.[address] % (Auto) 5.9 Eos % (Auto) 0.0 Baso % (Auto) 0.3 Neut # (Auto) 14.7 H Lymph # (Auto) 0.[address] [place] # (Auto) 1.0 H Eos # (Auto) 0.0 Baso # (Auto) 0.0 WBC Differential Manual diff final Seg Neuts % (Manual) 80 H Band Neuts % (Manual) 11 H Lymphocytes % (Manual) 4 L Monocytes % (Manual) 5 Abs Neuts (Manual) 15.0 H Differential Comment . Platelet Estimate Normal Platelet Morphology Normal Lactic Acid 2.0 C-Reactive Protein B-Natriuretic Peptide 285 H Procalcitonin Urine Color Urine Clarity Urine pH Ur Specific [place] Urine Protein Urine Glucose (UA) Urine Ketones Urine Occult Blood Urine Nitrate Urine Bilirubin Urine Urobilinogen Ur Leukocyte Esterase Urine RBC Urine WBC Ur Squamous Epith Cells Urine Bacteria Urine Mucus Micro UA Comment Ur Microscopic Review Urine Culture Comments 12/29/17 12/29/17 12/29/17 12:09 12:09 13:16 WBC RBC Hgb Hct MCV MCH MCHC RDW Plt Count MPV Prelim Diff (Auto) Neut % (Auto) Lymph % (Auto) [place] % (Auto) Eos % (Auto) Baso % (Auto) Neut # (Auto) Lymph # (Auto) [place] # (Auto) Eos # (Auto) Baso # (Auto) WBC Differential Seg Neuts % (Manual) Band Neuts % (Manual) Lymphocytes % (Manual) Monocytes % (Manual) Abs Neuts (Manual) Differential Comment Platelet Estimate Platelet Morphology Lactic Acid C-Reactive Protein 30.30 H B-Natriuretic Peptide Procalcitonin 2.13 H Urine Color Yellow Urine Clarity Hazy H Urine pH 5.0 Ur Specific [place] 1.013 Urine Protein 100 H Urine Glucose (UA) Negative Urine Ketones Negative Urine Occult Blood Moderate H Urine Nitrate Negative Urine Bilirubin Negative Urine Urobilinogen Less than 2 Ur Leukocyte Esterase Small H Urine RBC 2 Urine WBC 7 H Ur Squamous Epith Cells 1 Urine Bacteria Rare H Urine Mucus Few H Micro UA Comment Culture not ind Ur Microscopic Review Not Reportable Urine Culture Comments Culture not ind 12/30/17 06:00 WBC 12.3 H RBC 3.50 L Hgb 10.5 L Hct 31.3 L MCV 89.6 MCH 30.0 MCHC 33.5 RDW 13.6 Plt Count 205 MPV 8.8 Prelim Diff (Auto) Neut % (Auto) 93.5 H Lymph % (Auto) 1.[address] % (Auto) 4.3 Eos % (Auto) 0.0 Baso % (Auto) 0.3 Neut # (Auto) 11.5 H Lymph # (Auto) 0.[address] # (Auto) 0.5 Eos # (Auto) 0.0 Baso # (Auto) 0.0 WBC Differential . Seg Neuts % (Manual) Band Neuts % (Manual) Lymphocytes % (Manual) Monocytes % (Manual) Abs Neuts (Manual) Differential Comment Auto diff final Platelet Estimate Platelet Morphology Lactic Acid C-Reactive Protein B-Natriuretic Peptide Procalcitonin Urine Color Urine Clarity Urine pH Ur Specific [place] Urine Protein Urine Glucose (UA) Urine Ketones Urine Occult Blood Urine Nitrate Urine Bilirubin Urine Urobilinogen Ur Leukocyte Esterase Urine RBC Urine WBC Ur Squamous Epith Cells Urine Bacteria Urine Mucus Micro UA Comment Ur Microscopic Review Urine Culture Comments Microbiology 12/29/17 13:16 Urine - Random Urine Legionella Antigen - Final Positive Legionella Antigen 12/29/17 13:16 Urine - Random Urine Streptococcus pneumoniae Antigen (M - Final Presumptive negative for streptococcus pneumoniae antigen, suggesting no current or recent infection. Infection due to Streptococcus pneumoniae cannot be ruled out since the antigen present in the sample may be below the detection limit of the test. 12/28/17 05:38 Blood - Peripheral Aerobic Blood Culture - Preliminary No growth in 1 day 12/28/17 05:38 Blood - Peripheral Anaerobic Blood Culture - Preliminary No growth in 1 day 12/28/17 05:30 Blood - Peripheral Aerobic Blood Culture - Preliminary No growth in 1 day 12/28/17 05:30 Blood - Peripheral Anaerobic Blood Culture - Preliminary No growth in 1 day - Imaging Impressions Chest X-Ray 12/29/17 00:00 CONCLUSION: New airspace consolidation in the right lower lung zone suspicious for pneumonia given the history of fever. There is also a small right pleural effusion. Pulmonary Perfusion Imaging 12/29/17 00:00 CONCLUSION: 1. The examination is negative for pulmonary embolus. 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 Sepsis with fever T-max 103, leukocytosis with elevated white count of 16.5, bandemia 11% with source of right lower lobe pneumonia, resolving Tmax 103.4 yesterday, no fever overnight -Continue on IV antibiotics -blood cx with no growth x 2 day, repeat BCX with no growth times 1 day -White count trending down, 16.5 to 12.3 -supportive care -monitor temp trend and white count RLL PNA +Legionella urinary antigen CXR shows new airspace consolidation in the right lower lung zone suspicious for pneumonia -Continue on IV Rocephin and azithromycin -sputum cx pending -Duonebs scheduled -IS and acapella -Supplemental oxygen as needed Suspected TIA possible seizure, ?febrile seizure CT head with no acute abnormality with LOCKSTITCH ZIPPER SETTER shunt in good position. 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 No benefit in pursuing further vascular workup at this time. -Neurology following, appreciate assistance -Continue ASA and statin daily -Started on Keppra 500 mg p.o. and await further recommendations by neurology -continue neuro checks -continue cardiac monitoring -PT/OT/ST -fall and seizure precautions Normal Pressure Hydrocephalus; s/p LOCKSTITCH ZIPPER SETTER shunt placement 2007 shunt study showed intact LOCKSTITCH ZIPPER SETTER shunt. -Evaluated by neurosurgery, appreciate assistance. Low concern for shunt malfunction. Recommends follow-up with Dr. Burris as outpatient in 2 weeks. Hypertension, not well controlled received Clonidine and Vasotec in ER patient on Benicar at home, on hold 2/ TRACY -Continue on amlodipine 10 mg daily. Start on Lopressor 12.5mg BID with hold parameters. -Clonidine as needed with parameters -Continue to monitor BP and adjust treatment accordingly TRACY on CKD stage 3 baseline appears to be around 1.6 to 1.7 Cr up to 2.00, trending down, now 1.82 Renal US shows medical renal dz UA +proteinuria, no e/o UTI -continue to hold home Benicar -avoid nephrotoxic agents -continue to monitor BMP, repeat labs in am Hypothyroidism;chronic TSH WNL -continue on Levothyroxine DVT prophylaxis with subq Heparin Code Status: DNR Discussed Condition With: patient, nursing staff, family, Dr. Zhang Discharge Planning: Not ready for discharge. Discharge pending clinical improvement.
[2017-12-30] MEDS: Levothyroxine 88 MCG Tablet PO SCH (07:38)
[2017-12-30] MEDS: Heparin - SQ 10,000 UNITS/ML Vial SQ SCH ×2 (09:43→20:21)
[2017-12-30] MEDS: levETIRAcetam 500 MG Tablet PO SCH ×2 (09:43→20:21)
[2017-12-30] MEDS: amLODIPine 10 MG Tablet PO SCH (09:44)
--- NOTE | 2017-12-30 10:44 | P.PNVS ---
Subjective Subjective/Hospital Course: 12/29/2017 I reviewed the laboratory and diagnostic procedures. This lady does have a carotid ultrasound that reveals bilateral bulky plaques in the bifurcations; however, no critical stenosis, possibly 60% to 70% bilateral. At this point, I believe it is appropriate to do a CTA of the carotids. This should be clearly associated with a caveat for this is an elderly lady and her candidacy for carotid surgery is limited. While the patient is a candidate for surgery, she should be also be considered for endovascular stenting should there be stenosis there. The Society of Vascular Surgery does recommend to avoid surgery in patients who have less than 4 years of life left by some sort of a fairly subjective criteria generalized in nature. In this particular situation, this lady is 87 years old and she has had quite a functional decline in the last year or so associated with loss of weight, weakness and inability to walk distances and such. Therefore, the whole workup is conditional on the patient being able to tolerate the procedure should this become necessary. If the course of therapy is not going to be changed by the findings of the CT scan, then obviously, it may be overkill. In this case, I will order a CTA of the carotids once creatinine comes down. While the patient's creatinine is a little elevated, we can probably bring it down in a day or 2 and then do the carotid study. This one can be done probably with about 100 mL of contrast and minimal load as far as renal function is concerned. Today creatinine is little bit up so I would certainly avoid study that may not change the course of therapy as it is Neurosurgery evaluation is greatly appreciated We will continue to follow 12/30/2017 Patient is hemodynamically stable and creatinine is starting to come down. No neurologic issues since the admission Right lower lobe infiltrate consistent with pneumonia and patient has fever At this point I do not believe that pursuing vascular workup is beneficial for patient has other comorbidities that should be addressed first and would not be a candidate for surgery or endovascular intervention as it is. Objective Vital Signs / I&O: Vital Signs 12/29/17 12:00 12/29/17 12:17 12/29/17 12:44 Temperature 99.5 F Pulse Rate 85 49 L Respiratory Rate 16 17 Blood Pressure 148/65 H Pulse Oximetry 97 12/29/17 12:50 12/29/17 16:30 12/29/17 17:09 Temperature 101.5 F H 103.4 F H Pulse Rate 100 H Respiratory Rate 16 Blood Pressure 168/82 H Pulse Oximetry 98 93 L 12/29/17 19:23 12/29/17 20:00 12/29/17 22:11 Temperature 101.0 F H Pulse Rate 89 79 89 Respiratory Rate 18 16 Blood Pressure 115/53 L Pulse Oximetry 94 L 95 12/30/17 00:00 12/30/17 04:00 12/30/17 07:33 Temperature 99.4 F 98.6 F Pulse Rate 79 87 87 Respiratory Rate 18 20 16 Blood Pressure 130/58 L 168/71 H Pulse Oximetry 95 93 L 94 L 12/30/17 08:00 Temperature 98.7 F Pulse Rate 99 H Respiratory Rate 16 Blood Pressure 172/71 H Pulse Oximetry 92 L Intake & Output 12/29/17 12/30/17 12/30/17 18:59 06:59 18:59 Intake Total 350 / 350 1000 / 1000 Balance 350 / 350 1000 / 1000 Weight 59.874 kg Intake: IV 350 / 350 1000 / 1000 NS Inj 1,000 ML @ 42 mls/hr IV. 1000 / 1000 CONT .[id number] SHIN Rx#:[id number] Azithromycin Inj 500 MG In NS 250 / 250 Inj 250 ML @ 250 mls/hr IV.SIG Q24H SHIN Rx#:[id number] Rocephin Inj 2,000 MG In NS Inj 100 / 100 100 ML @ 200 mls/hr IV.SIG Q24H SHIN Rx#:[id number] Other: # Voids 4 1 Date of Last Bowel Movement 12/28/17 12/28/17 Laboratory Results - last 24 hr 12/29/17 12/29/17 12/29/17 12:09 12:09 12:09 WBC RBC Hgb Hct MCV MCH MCHC RDW Plt Count MPV Neut % (Auto) Lymph % (Auto) [place] % (Auto) Eos % (Auto) Baso % (Auto) Neut # (Auto) Lymph # (Auto) [place] # (Auto) Eos # (Auto) Baso # (Auto) WBC Differential Differential Comment Sodium Potassium Chloride Carbon Dioxide Anion Gap BUN Creatinine Estimated GFR Random Glucose Lactic Acid 2.0 Calcium C-Reactive Protein 30.30 H B-Natriuretic Peptide 285 H Procalcitonin Urine Color Urine Clarity Urine pH Ur Specific [place] Urine Protein Urine Glucose (UA) Urine Ketones Urine Occult Blood Urine Nitrate Urine Bilirubin Urine Urobilinogen Ur Leukocyte Esterase Urine RBC Urine WBC Ur Squamous Epith Cells Urine Bacteria Urine Mucus Micro UA Comment Ur Microscopic Review Urine Culture Comments 12/29/17 12/29/17 12/30/17 12:09 13:16 06:00 WBC 12.3 H RBC 3.50 L Hgb 10.5 L Hct 31.3 L MCV 89.6 MCH 30.0 MCHC 33.5 RDW 13.6 Plt Count 205 MPV 8.8 Neut % (Auto) 93.5 H Lymph % (Auto) 1.9 L [place] % (Auto) 4.3 Eos % (Auto) 0.0 Baso % (Auto) 0.3 Neut # (Auto) 11.5 H Lymph # (Auto) 0.2 L [place] # (Auto) 0.5 Eos # (Auto) 0.0 Baso # (Auto) 0.0 WBC Differential . Differential Comment Auto diff final Sodium Potassium Chloride Carbon Dioxide Anion Gap BUN Creatinine Estimated GFR Random Glucose Lactic Acid Calcium C-Reactive Protein B-Natriuretic Peptide Procalcitonin 2.13 H Urine Color Yellow Urine Clarity Hazy H Urine pH 5.0 Ur Specific [place] 1.013 Urine Protein 100 H Urine Glucose (UA) Negative Urine Ketones Negative Urine Occult Blood Moderate H Urine Nitrate Negative Urine Bilirubin Negative Urine Urobilinogen Less than 2 Ur Leukocyte Esterase Small H Urine RBC 2 Urine WBC 7 H Ur Squamous Epith Cells 1 Urine Bacteria Rare H Urine Mucus Few H Micro UA Comment Culture not ind Ur Microscopic Review Not Reportable Urine Culture Comments Culture not ind 12/30/17 06:00 WBC RBC Hgb Hct MCV MCH MCHC RDW Plt Count MPV Neut % (Auto) Lymph % (Auto) [place] % (Auto) Eos % (Auto) Baso % (Auto) Neut # (Auto) Lymph # (Auto) [place] # (Auto) Eos # (Auto) Baso # (Auto) WBC Differential Differential Comment Sodium 135 L Potassium 3.9 Chloride 105 Carbon Dioxide 18.0 L Anion Gap 12 BUN 36 H Creatinine 1.82 H Estimated GFR 26 L Random Glucose 101 Lactic Acid Calcium 8.4 L C-Reactive Protein B-Natriuretic Peptide Procalcitonin Urine Color Urine Clarity Urine pH Ur Specific [place] Urine Protein Urine Glucose (UA) Urine Ketones Urine Occult Blood Urine Nitrate Urine Bilirubin Urine Urobilinogen Ur Leukocyte Esterase Urine RBC Urine WBC Ur Squamous Epith Cells Urine Bacteria Urine Mucus Micro UA Comment Ur Microscopic Review Urine Culture Comments Microbiology 12/29/17 22:55 Gram Stain - Final Sputum - Expectorated Sputum 12/29/17 13:16 Legionella Antigen - Final Urine - Random Urine Positive Legionella Antigen 12/29/17 13:16 Streptococcus pneumoniae Antigen (M - Final Urine - Random Urine Presumptive negative for streptococcus pneumoniae antigen, suggesting no current or recent infection. Infection due to Streptococcus pneumoniae cannot be ruled out since the antigen present in the sample may be below the detection limit of the test. 12/28/17 05:38 Aerobic Blood Culture - Preliminary Blood - Peripheral No growth in 1 day Anaerobic Blood Culture - Preliminary No growth in 1 day 12/28/17 05:30 Aerobic Blood Culture - Preliminary Blood - Peripheral No growth in 1 day Anaerobic Blood Culture - Preliminary No growth in 1 day Impressions Abdomen/Bladder Ultrasound 12/28/17 00:00 CONCLUSION: Both kidneys are at the lower limits for normal in size. Both kidneys also demonstrate increased echogenicity suggesting medical renal disease. Chest X-Ray 12/29/17 00:00 CONCLUSION: New airspace consolidation in the right lower lung zone suspicious for pneumonia given the history of fever. There is also a small right pleural effusion. Pulmonary Perfusion Imaging 12/29/17 00:00 CONCLUSION: 1. The examination is negative for pulmonary embolus.
[2017-12-30] MEDS: Azithromycin Inj 500 MG in Sodium Chlor 0.9% Inj 250 ML IV.SIG SCH (14:10)
[2017-12-30] MEDS: Acetaminophen 325 MG Tablet PO PRN ×2 (14:13→23:41)
[2017-12-30] MEDS: Metoprolol Tartrate 25 MG Tablet PO SCH ×2 (15:47→20:21)
[2017-12-30] MEDS: guaiFENesin 600 MG ER Tablet PO SCH (20:22)
--- NOTE | 2017-12-31 00:34 | XR ---
EXAM DATE: 12/31/2017 12:00 AM EDT AGE/SEX: 87 years / Female INDICATIONS: Right hip pain, no trauma. CLINICAL DATA: This is the patient's subsequent encounter. Patient reports that signs and symptoms h ave been present for 2 days and indicates a pain score of 3/10. MEDICAL/SURGICAL HISTORY: Hypertension. Pneumonia. . Total right hip replacement. COMPARISON: No prior exams available for comparison. FINDINGS: There is a right hip arthroplasty in place. Arthroplasty components appear grossly in anatomic alignm ent. No. Hardware lucency. Osseous structures appear intact. Soft tissues are unremarkable. CONCLUSION: 1. Right hip arthroplasty in place. 2. Otherwise, unremarkable single portable view of the right hip. Electronically signed by: Seth Jose MD 12/31/2017 12:32 AM EDT
[2017-12-31] MEDS: Levothyroxine 88 MCG Tablet PO SCH (06:26)
[2017-12-31 07:53] LABS: Baso % (Auto) 0.2 % (0.0-2.0); Eos % (Auto) 0.1 % (0.0-4.0); Hematocrit 24.4 % (35.0-46.0); Hemoglobin 8.6 gm/dL (11.6-15.3); Lymph # (Auto) 0.4 th/mm3 (1.0-4.8); Mean Corpuscular HGB Conc 35.3 % (32.0-36.0); Mean Corpuscular Hemoglobin 30.5 pg (27.0-34.0); Mean Corpuscular Volume 86.5 fL (80.0-100.0); Mean Platelet Volume 8.6 fL (7.0-11.0); Mono # (Auto) 0.5 th/mm3 (0.0-0.9); Mono % (Auto) 6.4 % (0.0-8.0); Neut % (Auto) 88.3 % (16.0-70.0); Platelet Count 204 th/mm3 (150-450); Red Blood Count 2.82 mil/mm3 (4.00-5.30); Red Cell Distribution Width 13.9 % (11.6-17.2); White Blood Count 7.9 th/mm3 (4.0-11.0)
[2017-12-31 08:13] LABS: Calcium 8.2 mg/dL (8.5-10.1); Carbon Dioxide 19.2 meq/L (21.0-32.0); Potassium 3.8 meq/L (3.5-5.1)
--- NOTE | 2017-12-31 09:02 | P.PN ---
Subjective Interval history: Follow-up Legionella pneumonia/sepsis December 31, 2017-patient seen and examined, T-max 100.7 at 12 PM however currently afebrile. Denies any chest pain or shortness of breath. Positive for cough production. Physical Exam Vital signs: Vital Signs 12/30/17 09:30 12/30/17 12:00 12/30/17 14:04 Temperature 100.7 F H Pulse Rate 99 H 89 65 Respiratory Rate 20 20 Blood Pressure 143/64 H Pulse Oximetry 93 L 94 L 12/30/17 16:00 12/30/17 20:00 12/30/17 20:30 Temperature 97.9 F 98.6 F Pulse Rate 91 H 74 74 Respiratory Rate 20 18 Blood Pressure 102/52 L 111/55 L Pulse Oximetry 91 L 96 12/30/17 21:10 12/31/17 00:00 12/31/17 00:30 Temperature 100.0 F H Pulse Rate 72 95 H 98 H Respiratory Rate 16 18 Blood Pressure 151/69 H Pulse Oximetry 93 L 95 12/31/17 03:01 12/31/17 04:00 12/31/17 04:30 Temperature 97.5 F L Pulse Rate 79 76 Respiratory Rate 18 18 Blood Pressure 116/57 L Pulse Oximetry 95 Intake & Output 12/30/17 12/31/17 12/31/17 18:59 06:59 18:59 Intake Total 650 / 650 Balance 650 / 650 Weight 97.5 kg Intake: IV 650 / 650 Azithromycin Inj 500 MG In NS 250 / 250 Inj 250 ML @ 250 mls/hr IV.SIG Q24H SHIN Rx#:[id number] Rocephin Inj 2,000 MG In NS Inj 100 / 100 100 ML @ 200 mls/hr IV.SIG Q24H SHIN Rx#:[id number] Other: # Voids 2 Date of Last Bowel Movement 12/30/17 12/30/17 Narrative: GENERAL: NAD SKIN: Warm and dry. HEAD: Normocephalic. EYES: No scleral icterus. No injection or drainage. NECK: Supple, trachea midline. No JVD or lymphadenopathy. CARDIOVASCULAR: Regular rate and rhythm without murmurs, gallops, or rubs. RESPIRATORY: Breath sounds equal bilaterally. No accessory muscle use. GASTROINTESTINAL: Abdomen soft, non-tender, nondistended. MUSCULOSKELETAL: No cyanosis, or edema. BACK: Nontender without obvious deformity. No CVA tenderness. Results - Labs CBC & Chem 7: 12/31/17 06:47 12/31/17 06:47 Laboratory Results - last 24 hr 12/31/17 12/31/17 06:47 06:47 WBC 7.9 RBC 2.82 L Hgb 8.6 L Hct 24.4 L MCV 86.5 MCH 30.5 MCHC 35.3 RDW 13.9 Plt Count 204 MPV 8.6 Neut % (Auto) 88.3 H Lymph % (Auto) 5.0 L [place] % (Auto) 6.4 Eos % (Auto) 0.1 Baso % (Auto) 0.2 Neut # (Auto) 7.0 Lymph # (Auto) 0.4 L [place] # (Auto) 0.5 Eos # (Auto) 0.0 Baso # (Auto) 0.0 WBC Differential . Differential Comment Auto diff final Sodium 136 Potassium 3.8 Chloride 106 Carbon Dioxide 19.2 L Anion Gap 11 BUN 39 H Creatinine 1.72 H Estimated GFR 28 L Random Glucose 96 Calcium 8.2 L Microbiology 12/29/17 22:55 Sputum - Expectorated Sputum Gram Stain - Final 12/29/17 22:55 Sputum - Expectorated Sputum Sputum Culture - Preliminary Immature growth - reincubate 12/30/17 11:00 Nasal Wash Influenza Types A,B Antigen - Final Negative for FLU A and B antigen Infection due to influenza A or B cannot be ruled out since the antigen present in the sample may be below the detection limit of the test. 12/29/17 12:09 Blood - Peripheral Aerobic Blood Culture - Preliminary No growth in 1 day 12/29/17 12:09 Blood - Peripheral Anaerobic Blood Culture - Preliminary No growth in 1 day 12/29/17 12:00 Blood - Peripheral Aerobic Blood Culture - Preliminary No growth in 1 day 12/29/17 12:00 Blood - Peripheral Anaerobic Blood Culture - Preliminary No growth in 1 day 12/28/17 05:38 Blood - Peripheral Aerobic Blood Culture - Preliminary No growth in 2 days 12/28/17 05:38 Blood - Peripheral Anaerobic Blood Culture - Preliminary No growth in 2 days 12/28/17 05:30 Blood - Peripheral Aerobic Blood Culture - Preliminary No growth in 2 days 12/28/17 05:30 Blood - Peripheral Anaerobic Blood Culture - Preliminary No growth in 2 days - Imaging Impressions Hip X-Ray 12/31/17 00:00 CONCLUSION: 1. Right hip arthroplasty in place. 2. Otherwise, unremarkable single portable view of the right hip. Assessment and Plan - Assessment (1) Sepsis Code(s): A41.9 - Status: Acute (2) Legionella pneumonia Code(s): A48.1 - Status: Acute - Plan 87-year-old female with Sepsis Resolved -Continue on IV antibiotics and monitor culture RLL PNA +Legionella urinary antigen CXR shows new airspace consolidation in the right lower lung zone suspicious for pneumonia -Continue on IV Rocephin and azithromycin and monitor culture report -Appreciate disease consultation as needed Suspected TIA possible seizure, ?febrile seizure CT head with no acute abnormality with RESISTOR INSPECTOR shunt in good position. EEG shows some focal slowing over the right mid temporal head region, slightly sharply contoured with some phase reversing, could indicate propensity for seizures Echo EF 55-60%, grade 2 diastolic dysfxn Carotid US shows bilateral stenosis 50-69% -Appreciate input from vascular surgery, neurology -Continue ASA and statin daily -Currently on Keppra 500 mg p.o. -PT/OT/ST -fall and seizure precautions Normal Pressure Hydrocephalus; s/p RESISTOR INSPECTOR shunt placement 2007 shunt study showed intact RESISTOR INSPECTOR shunt. -Evaluated by neurosurgery, appreciate assistance. Recommends follow-up with Dr. Burris as outpatient in 2 weeks. Hypertension patient on Benicar at home, on hold 2/2 TRACY -Continue on amlodipine 10 mg daily, Lopressor 12.5mg BID -Clonidine as needed with parameters TRACY on CKD stage 3 -Renal indices improving -continue to hold home Benicar -avoid nephrotoxic agents Hypothyroidism;chronic -continue on Levothyroxine DVT prophylaxis with subq Heparin
[2017-12-31] MEDS: Metoprolol Tartrate 25 MG Tablet PO SCH ×2 (09:24→21:23)
[2017-12-31] MEDS: amLODIPine 10 MG Tablet PO SCH (09:24)
[2017-12-31] MEDS: levETIRAcetam 500 MG Tablet PO SCH ×2 (09:25→22:39)
[2017-12-31] MEDS: Heparin - SQ 10,000 UNITS/ML Vial SQ SCH ×2 (09:25→21:24)
[2017-12-31] MEDS: guaiFENesin 600 MG ER Tablet PO SCH ×2 (09:25→21:23)
[2017-12-31] MEDS: Digoxin Inj 500 MCG/2 ML Ampul IV.PUSH SCH ×4 (12:49→17:59)
[2017-12-31] MEDS: Azithromycin Inj 500 MG in Sodium Chlor 0.9% Inj 250 ML IV.SIG SCH (15:01)
--- NOTE | 2017-12-31 15:23 | MB ---
cc: Loc Ramírez MD DATE: 12/31/2017 HISTORY OF PRESENT ILLNESS: This is a very pleasant 87-year-old lady with a history of normal pressure hydrocephalus, status post [employer] shunt placement seen by Dr. Huff after developing sudden slurred speech and mild confusion. He has diagnosed her with a probable transient ischemic attack, which has resolved. The patient went into atrial fibrillation with rapid ventricular response. Currently, she appears to be comfortable, in no acute distress. Denies any chest pain, fever, chills, cough, GI or bleeding, PND, orthopnea. PAST MEDICAL HISTORY: Per history of present illness. Also has a history of hypertension, renal insufficiency, glaucoma, hyperlipidemia, hypothyroidism, shoulder surgery. SOCIAL HISTORY: Denies tobacco or alcohol use. ALLERGIES: EYEDROPS. MEDICATIONS IN THE HOSPITAL: 1. Aspirin 81 mg a day. 2. Amlodipine 10 mg daily. 3. Azithromycin IV. 4. Ceftriaxone IV. 5. Digoxin 0.25 mg IV. 6. Heparin 5000 subcutaneous every 12 hours. 7. Keppra 500 b.i.d. 8. Synthroid 88 mcg daily. 9. Metoprolol 12.5 mg b.i.d. PHYSICAL EXAMINATION: VITAL SIGNS: Pulse currently 91, blood pressure 137/66, temperature 98.3, respiratory rate 20, saturations 93% on 3 liters nasal cannula. GENERAL: She is alert and oriented x3, in no acute distress. NECK: Supple. No JVD or bruit. CARDIOVASCULAR: S1, S2. No murmurs, rubs or gallops. LUNGS: Clear to auscultation bilaterally. ABDOMEN: Soft, nontender, nondistended with positive bowel sounds. EXTREMITIES: Lower extremity edema. DIAGNOSTIC STUDIES: Carotid Doppler on 12/27/2017: Right internal carotid artery 50-69% and also left internal carotid artery 50-69%. Chest x-ray: No acute cardiopulmonary findings. No definite abnormality to explain the patient's rib pain identified. Head CT 12/27/2017: The patient's ventriculostomy shunt appears in good position. The sizes of the ventricles is stable compared to the "previous examination." Echocardiogram 12/28/2017: EF 55-60%. Mild mitral regurgitation. Mild to moderate aortic valve regurgitation. PA systolic pressure 52.5 mmHg. LABORATORY DATA: White count is 7.9, hemoglobin 8.6, hematocrit 24.4, platelet count 204. Sodium 136, previously 135, potassium 3.8, chloride 106, bicarbonate 19.2, BUN 39, creatinine 1.72, calcium 8.2. BNP is 285. INR is 1.1. DIAGNOSES: 1. Paroxysmal atrial fibrillation. 2. Transient ischemic attack. 3. Ventriculoperitoneal shunt. 4. Normal pressure hydrocephalus. 5. Hyponatremia. 6. Chronic renal insufficiency. 7. Decompensated congestive heart failure. 8. Anemia. 9. Elevated white count. 10. Carotid stenosis. 11. Peripheral vascular disease. DISCUSSION: The patient's CHADS-VASc score is at least 7, so she definitely has an indication to be on Coumadin or novel oral anticoagulant agent to reduce her risk for life-threatening or debilitating stroke, which I have explained to her and her daughter. They understand. They are undecided. Also, the patient's hemoglobin is unstable and she is significantly anemic and she has a ventriculoperitoneal shunt and she would require neurosurgical clearance prior to starting Coumadin or novel oral anticoagulant agent. We will continue telemetry monitoring. I think it is reasonable to continue her Lopressor and she did receive digoxin already. Rate is currently controlled. We will continue to follow trends in heart rate, blood pressure, hemoglobin and recommendations from Neurosurgery, Neurology and patient preference. MD SHANNAN Rodriguez/kimberly , 02:49 PM , 02:59 PM
--- NOTE | 2017-12-31 15:27 | HM ---
Date Performed: 12/28/2017 Time Performed: 20:24:00 HOOKUP DATE: 12/28/17 08:24:00 PM Fri ANALYSIS START TIME: 12/28/2017 8:29:00 PM ANALYSIS END TIME: 12/29/2017 4:58:00 PM PATIENT AGE: 87 PATIENT HEIGHT PATIENT WEIGHT DRUG LIST PATIENT DIAGNOSIS: TIA TEST NARRATIVE: The patient's average heart rate was 83 BPM. Heart rates greater than 120 B PM were noted < 1% of the time. No episodes of bradycardia were noted. No pauses exceeding 2.0 s econds were noted. 957 ventricular ectopics, which represented 1% of the total beat count, were n oted. The highest ventricular ectopic frequency occurred from 01:00 AM to 02:00 AM Sat. During this time 131 VE(s) occurred. Ventricular ectopics were observed as 949 isolated beat(s) and as 4 couple t(s). No runs were noted. 3963 supraventricular ectopics, which represented 4% of the total beat count, were noted. The highest supraventricular ectopic frequency occurred from 01:00 PM to 02:00 P M Sat. During this time 308 SVE(s) occurred. Multiple episodes of ST depression (defined as -1.0 mm or more) were noted in channel 1. The maximum depression of -1.3 mm occurred at 11:48:40 AM Sat . Multiple episodes of ST depression (defined as -1.0 mm or more) were noted in channel 2. The max imum depression of -1.4 mm occurred at 03:27:30 PM Sat. No episodes of ST depression (defined as -1. 0 mm or more) were noted in channel 3. TEST INTERPRETATION: The patient was monitored ofr approximately 24hours. Minimum heartrate 57bp m, maximum heart rate 134bpm and average heart rate of 83bpm. There were 949 PVC's with 4 couplets. There were many PAC's , they were short. There were 9 runs of SVT, the longest being 11beats at a rat e of 146bpm, fastest being 9 beats at rate of 176 bpm CONCLUSION: 1. Multiple short runs of SVT up t o a maximum of 11beats with a maximum heart rate of 176bpm. 2. 4 couplets PVC's, rare PVC's overall a nd a moderate number of PAC's overall. 3. Overall, no atrial fibrillation Signed by : Melisa Benoit
--- NOTE | 2017-12-31 18:57 | P.PNNEU ---
Subjective Subjective Comments: Pt denies new neurologic SX. No recurrent episodes of dysarthria. Neurosurgery and vascular surgery consult notes reviewed and appreciated Active Medications: Active Medications Acetaminophen (Tylenol) 650 mg PO Q4H PRN PRN Reason: Fever, pain Last Admin: 12/30/17 23:41 Dose: 650 mg Albuterol (Duoneb Neb (Bigg)) 1 ampul NEB Q4HR WHILE AWAKE NEB REPLACED BY [facility] Last Admin: 12/31/17 16:32 Dose: 1 ampul Amlodipine Besylate (Norvasc) 10 mg PO DAILY REPLACED BY [facility] Last Admin: 12/31/17 09:24 Dose: 10 mg Aspirin (Ecotrin) 81 mg PO DAILY REPLACED BY [facility] Last Admin: 12/31/17 09:25 Dose: 81 mg Clonidine HCl (Catapres) 0.1 mg PO Q6H PRN PRN Reason: SBP>160, DBP>90 Guaifenesin (Mucinex Er) 600 mg PO BID REPLACED BY [facility] Last Admin: 12/31/17 09:25 Dose: 600 mg Heparin Sodium (Porcine) (Heparin Inj) 5,000 units SQ Q12HR REPLACED BY [facility] Last Admin: 12/31/17 09:25 Dose: 5,000 units Sodium Chloride (Ns Inj) 1,000 mls @ 42 mls/hr IV.CONT .[id number] REPLACED BY [facility] Last Infusion: 12/30/17 15:53 Dose: Infused Ceftriaxone Sodium 2,000 mg/ (Sodium Chloride) 100 mls @ 200 mls/hr IV.SIG Q24H REPLACED BY [facility] Last Infusion: 12/31/17 18:15 Dose: Infused Azithromycin 500 mg/ Sodium (Chloride) 250 mls @ 250 mls/hr IV.SIG Q24H REPLACED BY [facility] Last Infusion: 12/31/17 18:14 Dose: Infused Levetiracetam (Keppra) 500 mg PO BID REPLACED BY [facility] Last Admin: 12/31/17 09:25 Dose: 500 mg Levothyroxine Sodium (Synthroid) 88 mcg PO DAILY@0600 REPLACED BY [facility] Last Admin: 12/31/17 06:26 Dose: 88 mcg Metoprolol Tartrate (Lopressor) 12.5 mg PO BID REPLACED BY [facility] Last Admin: 12/31/17 09:24 Dose: 12.5 mg Miscellaneous (Pill Splitter) 1 each OTHER UNSCH PRN PRN Reason: SEE LABEL COMMENTS Patient Own Medication: Zioptan 0.0015% Ophthalmic Solution ( Preservative-Free ) 0 each EACH EYE DAILY@1800 [facility] Pravastatin Sodium (Pravachol) 40 mg PO DAILY@1800 [facility] Last Admin: 12/30/17 17:38 Dose: 40 mg Sodium Chloride (Ns Flush) 2 ml IV.FLUSH PRN PRN PRN Reason: FLUSH AFTER USING IV ACCESS Last Admin: 12/27/17 13:47 Dose: 2 ml Allergies/Adverse Reactions: Allergies Allergy/AdvReac Type Severity Reaction Status Date / Time EYE DROPS Allergy Severe Swelling Uncoded 08/31/16 09:47 Physical Exam Vital signs: Vital Signs 12/30/17 20:00 12/30/17 20:30 12/30/17 21:10 Temperature 98.6 F Pulse Rate 74 74 72 Respiratory Rate 18 16 Blood Pressure 111/55 L Pulse Oximetry 96 93 L 12/31/17 00:00 12/31/17 00:30 12/31/17 03:01 Temperature 100.0 F H Pulse Rate 95 H 98 H Respiratory Rate 18 18 Blood Pressure 151/69 H Pulse Oximetry 95 12/31/17 04:00 12/31/17 04:30 12/31/17 08:00 Temperature 97.5 F L 98.0 F Pulse Rate 79 76 79 Respiratory Rate 18 18 Blood Pressure 116/57 L 97/50 L Pulse Oximetry 95 94 L 12/31/17 08:54 12/31/17 10:00 12/31/17 12:00 Temperature 98.3 F Pulse Rate 75 138 H 134 H Respiratory Rate 18 20 Blood Pressure 137/66 Pulse Oximetry 93 L 12/31/17 12:16 12/31/17 13:00 12/31/17 16:00 Temperature 99.6 F Pulse Rate 91 H 85 84 Respiratory Rate 20 18 Blood Pressure 130/60 Pulse Oximetry 94 L 12/31/17 16:34 Temperature Pulse Rate 86 Respiratory Rate 20 Blood Pressure Pulse Oximetry Intake & Output 12/30/17 12/31/17 12/31/17 18:59 06:59 18:59 Intake Total 650 / 650 350 / 350 Balance 650 / 650 350 / 350 Weight 97.5 kg Intake: IV 650 / 650 350 / 350 Azithromycin Inj 500 MG In NS 250 / 250 250 / 250 Inj 250 ML @ 250 mls/hr IV.SIG Q24H REPLACED BY [facility] Rx#:[id number] Rocephin Inj 2,000 MG In NS Inj 100 / 100 100 / 100 100 ML @ 200 mls/hr IV.SIG Q24H REPLACED BY [facility] Rx#:[id number] Other: # Voids 2 Date of Last Bowel Movement 12/30/17 12/30/17 12/30/17 - Routine Neurological Exam alert, speech is fluent with no dysarthria CN intact MOTOR 5/5 BUE and BLE Objective Laboratory Results - last 24 hr 12/31/17 12/31/17 06:47 06:47 WBC 7.9 RBC 2.82 L Hgb 8.6 L Hct 24.4 L MCV 86.5 MCH 30.5 MCHC 35.3 RDW 13.9 Plt Count 204 MPV 8.6 Neut % (Auto) 88.3 H Lymph % (Auto) 5.0 L [place] % (Auto) 6.4 Eos % (Auto) 0.1 Baso % (Auto) 0.2 Neut # (Auto) 7.0 Lymph # (Auto) 0.4 L [place] # (Auto) 0.5 Eos # (Auto) 0.0 Baso # (Auto) 0.0 WBC Differential . Differential Comment Auto diff final Sodium 136 Potassium 3.8 Chloride 106 Carbon Dioxide 19.2 L Anion Gap 11 BUN 39 H Creatinine 1.72 H Estimated GFR 28 L Random Glucose 96 Calcium 8.2 L Microbiology 12/29/17 22:55 Gram Stain - Final Sputum - Expectorated Sputum Sputum Culture - Final Heavy growth normal respiratory ester 12/29/17 12:09 Aerobic Blood Culture - Preliminary Blood - Peripheral No growth in 2 days Anaerobic Blood Culture - Preliminary No growth in 2 days 12/29/17 12:00 Aerobic Blood Culture - Preliminary Blood - Peripheral No growth in 2 days Anaerobic Blood Culture - Preliminary No growth in 2 days 12/28/17 05:38 Aerobic Blood Culture - Preliminary Blood - Peripheral No growth in 3 days Anaerobic Blood Culture - Preliminary No growth in 3 days 12/28/17 05:30 Aerobic Blood Culture - Preliminary Blood - Peripheral No growth in 3 days Anaerobic Blood Culture - Preliminary No growth in 3 days Review/Management - Diagnosis (1) TIA (transient ischemic attack) Code(s): G45.9 - Transient cerebral ischemic attack, unspecified Status: Acute Current Visit: Yes - Review/Management Plan: Transient dysarthria and confusion--probable TIA. Would consider anticoagulation in view of atrial fibrillation. This was discussed with patient and her daughter who would like to consider anticoagulation further
[2018-01-01] MEDS: Acetaminophen 325 MG Tablet PO PRN (02:57)
[2018-01-01] MEDS: Levothyroxine 88 MCG Tablet PO SCH (05:08)
[2018-01-01] MEDS: Metoprolol Tartrate 25 MG Tablet PO SCH ×2 (08:57→20:14)
[2018-01-01] MEDS: levETIRAcetam 500 MG Tablet PO SCH ×2 (08:58→20:14)
[2018-01-01] MEDS: Heparin - SQ 10,000 UNITS/ML Vial SQ SCH ×2 (08:59→20:14)
[2018-01-01] MEDS: amLODIPine 10 MG Tablet PO SCH (08:59)
[2018-01-01] MEDS: guaiFENesin 600 MG ER Tablet PO SCH ×2 (08:59→20:14)
[2018-01-01] MEDS: Azithromycin Inj 500 MG in Sodium Chlor 0.9% Inj 250 ML IV.SIG SCH (11:11)
--- NOTE | 2018-01-01 13:12 | P.PNIM ---
Subjective Interval history: Patient is ambulating, at sink side with her daughter, no evidence of dyspnea but she is using nasal cannula oxygen. She states this is the best she has felt since her admission. Physical Exam Vital signs: Vital Signs 12/31/17 16:00 12/31/17 16:34 12/31/17 19:32 Temperature 99.6 F Pulse Rate 84 86 81 Respiratory Rate 18 20 16 Blood Pressure 130/60 Pulse Oximetry 94 L 92 L Pulse Oximetry [Resting on Room Air] Pulse Oximetry [Resting with Oxygen] 12/31/17 20:00 12/31/17 23:00 12/31/17 23:30 Temperature 98.3 F 98.2 F Pulse Rate 109 H 95 H 94 H Respiratory Rate 20 20 20 Blood Pressure 174/74 H 160/55 H 156/60 H Pulse Oximetry 93 L 91 L 93 L Pulse Oximetry [Resting on Room Air] Pulse Oximetry [Resting with Oxygen] 01/01/18 03:00 01/01/18 03:56 01/01/18 07:00 Temperature 102.4 F H 99.8 F H 98.0 F Pulse Rate 86 71 Respiratory Rate 20 20 Blood Pressure 153/66 H 140/67 Pulse Oximetry 92 L 94 L Pulse Oximetry [Resting on Room Air] Pulse Oximetry [Resting with Oxygen] 01/01/18 08:52 01/01/18 12:45 01/01/18 12:58 Temperature Pulse Rate 74 68 Respiratory Rate 20 18 Blood Pressure Pulse Oximetry 95 Pulse Oximetry [Resting on Room Air] 88 L Pulse Oximetry [Resting with Oxygen] 94 L Intake & Output 12/31/17 01/01/18 01/01/18 18:59 06:59 18:59 Intake Total 950 / 950 240 / 240 250 / 250 Balance 950 / 950 240 / 240 250 / 250 Weight 59.4 kg Intake: IV 350 / 350 250 / 250 Azithromycin Inj 500 MG In NS 250 / 250 250 / 250 Inj 250 ML @ 250 mls/hr IV.SIG Q24H [facility] Rx#:[id number] Rocephin Inj 2,000 MG In NS Inj 100 / 100 100 ML @ 200 mls/hr IV.SIG Q24H [facility] Rx#:[id number] Oral 600 / 600 240 / 240 Other: # Voids 3 1 Date of Last Bowel Movement 12/31/17 12/31/17 12/31/17 # Bowel Movements 2 Narrative: GENERAL: AAOx3, no acute distress, thin SKIN: Warm and dry. No rashes. 3mm Cold sore on right upper lip HEAD: Atruamtic, normocephalic. EYES: No scleral icterus. No injection or drainage. ENT: Moist mucous membranes, patent nares, no erythema of oropharynx. NECK: Supple, trachea midline. No JVD or lymphadenopathy. Normal thyroid. CARDIOVASCULAR: Regular rate and rhythm. No murmurs, gallops, or rubs. RESPIRATORY: Fine crackles in LLL > RLL. No accessory muscle use. Ambulating without effort GASTROINTESTINAL: Abdomen soft, non-tender, nondistended, normal active bowel sounds MUSCULOSKELETAL: No cyanosis, or edema. NEURO: CN II-XII grossly intact, no focal deficits, no slurring of speech Results - Labs CBC & Chem 7: 12/31/17 06:47 12/31/17 06:47 Microbiology 12/29/17 12:09 Blood - Peripheral Aerobic Blood Culture - Preliminary No growth in 3 days 12/29/17 12:09 Blood - Peripheral Anaerobic Blood Culture - Preliminary No growth in 3 days 12/29/17 12:00 Blood - Peripheral Aerobic Blood Culture - Preliminary No growth in 3 days 12/29/17 12:00 Blood - Peripheral Anaerobic Blood Culture - Preliminary No growth in 3 days 12/28/17 05:38 Blood - Peripheral Aerobic Blood Culture - Preliminary No growth in 4 days 12/28/17 05:38 Blood - Peripheral Anaerobic Blood Culture - Preliminary No growth in 4 days 12/28/17 05:30 Blood - Peripheral Aerobic Blood Culture - Preliminary No growth in 4 days 12/28/17 05:30 Blood - Peripheral Anaerobic Blood Culture - Preliminary No growth in 4 days 12/29/17 22:55 Sputum - Expectorated Sputum Gram Stain - Final 12/29/17 22:55 Sputum - Expectorated Sputum Sputum Culture - Final Heavy growth normal respiratory ester Assessment and Plan - Assessment (1) Sepsis Code(s): A41.9 - Sepsis, unspecified organism Status: Acute (2) Legionella pneumonia Code(s): A48.1 - Legionnaires' disease Status: Acute - Plan LEGIONELLA PNA, RLL Admitted with evidence of sepsis, treated accordingly CXR showed new airspace consolidation in the right lower lung zone suspicious for pneumonia Legionella confirmed by urinary antigen Continue on IV Rocephin and azithromycin Appreciate infectious disease consult Suspected TIA vs seizure (atypical or febrile) Patient has normal pressure hydrocephalus status post the P [place] CT head with no acute abnormality with [employer] shunt in good position. EEG shows some patterns that have propensity for seizure Echo EF 55-60%, grade 2 diastolic dysfunction Carotid US shows bilateral stenosis 50-69% Continue aspirin, statin, Keppra Appreciate neurology consult Appreciate vascular consult Appreciate neurosurgery consult Continue PT OT Paroxysmal atrial fibrillation Patient is currently in normal sinus rhythm, but she has episodic atrial fibrillation She is currently receiving subcutaneous heparin Daughter has concerns about her mother being on a blood thinner If we are considering TIA, then her atrial fibrillation is the prime suspect It is possible that her A. fib was aggravated by infection, pneumonia, azithromycin I recommended that she remain on a blood thinner until this can be worked up further as an outpatient, once her treatment for pneumonia is completed Hypertension Benicar held due to acute kidney injury on admission Continue on amlodipine 10 mg daily, Lopressor 12.5mg BID Clonidine as needed TRACY on CKD stage 3 Slowly improving Avoid nephrotoxic agents, Benicar held Hypothyroidism continue on Levothyroxine DVT prophylaxis Heparin
--- NOTE | 2018-01-01 13:56 | P.PNCA ---
Subjective Interval history: alert in nad Medications and Allergies Active Medications: Active Medications Acetaminophen (Tylenol) 650 mg PO Q4H PRN PRN Reason: Fever, pain Last Admin: 01/01/18 02:57 Dose: 650 mg Acyclovir (Zovirax 5% Cream) 1 applicatio TOPICAL TID [facility] Albuterol (Duoneb Neb (Bigg)) 1 ampul NEB Q4HR WHILE AWAKE NEB [facility] Last Admin: 01/01/18 12:57 Dose: 1 ampul Amlodipine Besylate (Norvasc) 10 mg PO DAILY [facility] Last Admin: 01/01/18 08:59 Dose: 10 mg Aspirin (Ecotrin) 81 mg PO DAILY [facility] Last Admin: 01/01/18 08:58 Dose: 81 mg Clonidine HCl (Catapres) 0.1 mg PO Q6H PRN PRN Reason: SBP>160, DBP>90 Guaifenesin (Mucinex Er) 600 mg PO BID [facility] Last Admin: 01/01/18 08:59 Dose: 600 mg Heparin Sodium (Porcine) (Heparin Inj) 5,000 units SQ Q12HR [facility] Last Admin: 01/01/18 08:59 Dose: 5,000 units Sodium Chloride (Ns Inj) 1,000 mls @ 42 mls/hr IV.CONT .[id number] [facility] Last Infusion: 12/30/17 15:53 Dose: Infused Ceftriaxone Sodium 2,000 mg/ (Sodium Chloride) 100 mls @ 200 mls/hr IV.SIG Q24H [facility] Last Admin: 01/01/18 13:37 Dose: 200 mls/hr Azithromycin 500 mg/ Sodium (Chloride) 250 mls @ 250 mls/hr IV.SIG Q24H [facility] Last Infusion: 01/01/18 12:32 Dose: Infused Levetiracetam (Keppra) 500 mg PO BID [facility] Last Admin: 01/01/18 08:58 Dose: 500 mg Levothyroxine Sodium (Synthroid) 88 mcg PO DAILY@0600 [facility] Last Admin: 01/01/18 05:08 Dose: 88 mcg Metoprolol Tartrate (Lopressor) 12.5 mg PO BID [facility] Last Admin: 01/01/18 08:57 Dose: 12.5 mg Miscellaneous (Pill Splitter) 1 each OTHER UNSCH PRN PRN Reason: SEE LABEL COMMENTS Patient Own Medication: Zioptan 0.0015% Ophthalmic Solution ( Preservative-Free ) 0 each EACH EYE DAILY@1800 [facility] Pravastatin Sodium (Pravachol) 40 mg PO DAILY@1800 [facility] Last Admin: 12/31/17 19:16 Dose: 40 mg Sodium Chloride (Ns Flush) 2 ml IV.FLUSH PRN PRN PRN Reason: FLUSH AFTER USING IV ACCESS Last Admin: 01/01/18 09:00 Dose: 2 ml Allergies Allergy/AdvReac Type Severity Reaction Status Date / Time EYE DROPS Allergy Severe Swelling Uncoded 08/31/16 09:47 Home Medications Medication Instructions Recorded Confirmed Type levothyroxine [Synthroid] 88 mcg PO DAILY 12/27/17 12/27/17 History olmesartan [Benicar] 20 mg PO DAILY 12/27/17 12/27/17 History simvastatin 20 mg PO QPM 12/27/17 12/27/17 History tafluprost (PF) [Zioptan (PF)] 1 drp OPHTHALMIC (EYE) QPM 12/27/17 12/27/17 History vit C-vit [id number] 1 cap PO DAILY 12/27/17 12/27/17 History [Ocuvite] Physical Exam Vital signs: Vital Signs 12/31/17 16:00 12/31/17 16:34 12/31/17 19:32 Temperature 99.6 F Pulse Rate 84 86 81 Respiratory Rate 18 20 16 Blood Pressure 130/60 Pulse Oximetry 94 L 92 L Pulse Oximetry [Resting on Room Air] Pulse Oximetry [Resting with Oxygen] 12/31/17 20:00 12/31/17 23:00 12/31/17 23:30 Temperature 98.3 F 98.2 F Pulse Rate 109 H 95 H 94 H Respiratory Rate 20 20 20 Blood Pressure 174/74 H 160/55 H 156/60 H Pulse Oximetry 93 L 91 L 93 L Pulse Oximetry [Resting on Room Air] Pulse Oximetry [Resting with Oxygen] 01/01/18 03:00 01/01/18 03:56 01/01/18 07:00 Temperature 102.4 F H 99.8 F H 98.0 F Pulse Rate 86 71 Respiratory Rate 20 20 Blood Pressure 153/66 H 140/67 Pulse Oximetry 92 L 94 L Pulse Oximetry [Resting on Room Air] Pulse Oximetry [Resting with Oxygen] 01/01/18 08:52 01/01/18 11:00 01/01/18 12:45 Temperature 97.8 F Pulse Rate 74 66 Respiratory Rate 20 20 Blood Pressure 128/52 L Pulse Oximetry 95 98 Pulse Oximetry [Resting on Room Air] 88 L Pulse Oximetry [Resting with Oxygen] 94 L 01/01/18 12:58 Temperature Pulse Rate 68 Respiratory Rate 18 Blood Pressure Pulse Oximetry Pulse Oximetry [Resting on Room Air] Pulse Oximetry [Resting with Oxygen] Intake & Output 12/31/17 01/01/18 01/01/18 18:59 06:59 18:59 Intake Total 950 / 950 240 / 240 250 / 250 Balance 950 / 950 240 / 240 250 / 250 Weight 59.4 kg Intake: IV 350 / 350 250 / 250 Azithromycin Inj 500 MG In NS 250 / 250 250 / 250 Inj 250 ML @ 250 mls/hr IV.SIG Q24H [facility] Rx#:[id number] Rocephin Inj 2,000 MG In NS Inj 100 / 100 100 ML @ 200 mls/hr IV.SIG Q24H [facility] Rx#:[id number] Oral 600 / 600 240 / 240 Other: # Voids 3 1 Date of Last Bowel Movement 12/31/17 12/31/17 12/31/17 # Bowel Movements 2 Results 12/31/17 06:47 12/31/17 06:47 CBC 12/31/17 Range/Units 06:47 WBC 7.9 (4.0-11.0) th/mm3 RBC 2.82 L (4.00-5.30) mil/mm3 Hgb 8.6 L (11.6-15.3) gm/dL Hct 24.4 L (35.0-46.0) % Plt Count 204 (150-450) th/mm3 Neut # (Auto) 7.0 (1.8-7.7) th/mm3 Lymph # (Auto) 0.4 L (1.0-4.8) th/mm3 [place] # (Auto) 0.5 (0.0-0.9) th/mm3 Eos # (Auto) 0.0 (0.0-0.4) th/mm3 Baso # (Auto) 0.0 (0.0-0.2) th/mm3 Comprehensive Metabolic Panel 12/31/17 Range/Units 06:47 Sodium 136 (136-145) meq/L Potassium 3.8 (3.5-5.1) meq/L Chloride 106 (98-107) meq/L Carbon Dioxide 19.2 L (21.0-32.0) meq/L BUN 39 H (7-18) mg/dL Creatinine 1.72 H (0.50-1.00) mg/dL Calcium 8.2 L (8.5-10.1) mg/dL Intake and Output 12/31/17 01/01/18 01/01/18 22:59 06:59 14:59 Intake Total 950 / 950 240 / 240 250 / 250 Balance 950 / 950 240 / 240 250 / 250 Intake: IV 350 / 350 250 / 250 Azithromycin Inj 500 MG In NS 250 / 250 250 / 250 Inj 250 ML @ 250 mls/hr IV.SIG Q24H [facility] Rx#:[id number] Rocephin Inj 2,000 MG In NS Inj 100 / 100 100 ML @ 200 mls/hr IV.SIG Q24H [facility] Rx#:[id number] Oral 600 / 600 240 / 240 Other: # Voids 3 1 Date of Last Bowel Movement 12/31/17 12/31/17 12/31/17 # Bowel Movements 2 Weight 59.4 kg - Imaging and Cardiology Imaging: Impressions Hip X-Ray 12/31/17 00:00 CONCLUSION: 1. Right hip arthroplasty in place. 2. Otherwise, unremarkable single portable view of the right hip. Assessment and Plan - Assessment (1) TIA (transient ischemic attack) Code(s): G45.9 - Transient cerebral ischemic attack, unspecified Status: Acute (2) Atrial fibrillation Code(s): I48.91 - Unspecified atrial fibrillation Status: Acute (3) Atrial fibrillation Code(s): I48.91 - Unspecified atrial fibrillation Status: Acute - Plan 1.) Atrial fib - assymptomatic, i strongly advised patien tand her family to take coumadin or noac due to [id number] score = 5 to lower risk of life threatening or debiliationg cva, they understand and refuse, continue aspirin, prn cardizem
--- NOTE | 2018-01-01 17:40 | ECG ---
Date Performed: 12/31/2017 Time Performed: 12:05:11 PTAGE: 87 years EKG: ATRIAL FIBRILLATION WITH RAPID VENTRICULAR RESPONSE NONSPECIFIC T-WAVE ABNORMALITY Compared to previous tracing, atrial fibrillation with rapid ventricular response has replaced Sinus rhythm ABNORMAL ECG PREVIOUS TRACING : 12/27/2017 16.05 DOCTOR: Jim Grimes Interpretating Date/Time 01/01/2018 17:39:25
[2018-01-02] MEDS: Levothyroxine 88 MCG Tablet PO SCH (05:46)
[2018-01-02] MEDS: guaiFENesin 600 MG ER Tablet PO SCH ×2 (09:08→22:15)
[2018-01-02] MEDS: Metoprolol Tartrate 25 MG Tablet PO SCH ×2 (09:08→22:15)
[2018-01-02] MEDS: levETIRAcetam 500 MG Tablet PO SCH ×2 (09:08→22:15)
[2018-01-02] MEDS: amLODIPine 10 MG Tablet PO SCH (09:09)
[2018-01-02] MEDS: Heparin - SQ 10,000 UNITS/ML Vial SQ SCH ×2 (09:09→22:15)
[2018-01-02] MEDS: Azithromycin Inj 500 MG in Sodium Chlor 0.9% Inj 250 ML IV.SIG SCH (12:11)
--- NOTE | 2018-01-02 14:59 | P.PNCA ---
Subjective Interval history: Pleasant 87-year-old female 2 daughters at bedside. Daughters report that patient developed nighttime confusion, almost like sundowners. Patient was diagnosed with Legionella pneumonia, had high fevers, and is currently being treated with antibiotics. Daughters report that the confusion has resolved. They are skeptical as to whether their mother had a TIA or not, they think the confusion was related to infection. Patient was noted to have episode of atrial fibrillation on director [employer] standards, long discussion was had with patient and daughters in reference to anticoagulants and the risk of stroke versus the risk of bleeding. Patient has a history of falls, also has hx of shunt placed by Dr. Tadeo several years ago due to hydrocephalus. Daughters currently refuse anticoagulants, and understand the risk. Telemetry reviewed, patient is currently in sinus rhythm. She denies any chest pain, admits to shortness of breath. Medications and Allergies Allergies Allergy/AdvReac Type Severity Reaction Status Date / Time EYE DROPS Allergy Severe Swelling Uncoded 08/31/16 09:47 Home Medications Medication Instructions Recorded Confirmed Type levothyroxine [Synthroid] 88 mcg PO DAILY 12/27/17 12/27/17 History olmesartan [Benicar] 20 mg PO DAILY 12/27/17 12/27/17 History simvastatin 20 mg PO QPM 12/27/17 12/27/17 History tafluprost (PF) [Zioptan (PF)] 1 drp OPHTHALMIC (EYE) QPM 12/27/17 12/27/17 History vit C-vit F-[id number]-chn-om-3 1 cap PO DAILY 12/27/17 12/27/17 History [Ocuvite] Active Medications: Active Medications Acetaminophen (Tylenol) 650 mg PO Q4H PRN PRN Reason: Fever, pain Last Admin: 01/01/18 02:57 Dose: 650 mg Acyclovir (Zovirax 5% Cream) 1 applicatio TOPICAL TID [facility] Last Admin: 01/02/18 12:13 Dose: 1 applicatio Albuterol (Duoneb Neb ([facility])) 1 ampul NEB Q4HR WHILE AWAKE NEB [facility] Last Admin: 01/02/18 11:55 Dose: 1 ampul Amlodipine Besylate (Norvasc) 10 mg PO DAILY [facility] Last Admin: 01/02/18 09:09 Dose: 10 mg Aspirin (Ecotrin) 81 mg PO DAILY [facility] Last Admin: 01/02/18 09:08 Dose: 81 mg Clonidine HCl (Catapres) 0.1 mg PO Q6H PRN PRN Reason: SBP>160, DBP>90 Guaifenesin (Mucinex Er) 600 mg PO BID [facility] Last Admin: 01/02/18 09:08 Dose: 600 mg Heparin Sodium (Porcine) (Heparin Inj) 5,000 units SQ Q12HR [facility] Last Admin: 01/02/18 09:09 Dose: 5,000 units Sodium Chloride (Ns Inj) 1,000 mls @ 42 mls/hr IV.CONT .[id number] [facility] Last Infusion: 12/30/17 15:53 Dose: Infused Ceftriaxone Sodium 2,000 mg/ (Sodium Chloride) 100 mls @ 200 mls/hr IV.SIG Q24H [facility] Last Admin: 01/02/18 12:12 Dose: 200 mls/hr Azithromycin 500 mg/ Sodium (Chloride) 250 mls @ 250 mls/hr IV.SIG Q24H [facility] Last Admin: 01/02/18 12:11 Dose: 250 mls/hr Levetiracetam (Keppra) 500 mg PO BID [facility] Last Admin: 01/02/18 09:08 Dose: 500 mg Levothyroxine Sodium (Synthroid) 88 mcg PO DAILY@0600 [facility] Last Admin: 01/02/18 05:46 Dose: 88 mcg Metoprolol Tartrate (Lopressor) 12.5 mg PO BID [facility] Last Admin: 01/02/18 09:08 Dose: 12.5 mg Miscellaneous (Pill Splitter) 1 each OTHER UNSCH PRN PRN Reason: SEE LABEL COMMENTS Patient Own Medication: Zioptan 0.0015% Ophthalmic Solution ( Preservative-Free ) 0 each EACH EYE DAILY@1800 [facility] Pravastatin Sodium (Pravachol) 40 mg PO DAILY@1800 [facility] Last Admin: 01/01/18 17:40 Dose: 40 mg Sodium Chloride (Ns Flush) 2 ml IV.FLUSH PRN PRN PRN Reason: FLUSH AFTER USING IV ACCESS Last Admin: 01/01/18 09:00 Dose: 2 ml Physical Exam Vital signs: Vital Signs 01/01/18 15:00 01/01/18 15:06 01/01/18 16:00 Temperature 98.2 F Pulse Rate 82 83 90 Respiratory Rate 18 18 Blood Pressure 157/62 H Pulse Oximetry 92 L 92 L 01/01/18 17:00 01/01/18 18:00 01/01/18 18:56 Temperature Pulse Rate 84 92 H 92 H Respiratory Rate 20 Blood Pressure Pulse Oximetry 01/01/18 19:00 01/01/18 20:00 01/01/18 21:00 Temperature 98.5 F Pulse Rate 86 98 H 90 Respiratory Rate 16 Blood Pressure 161/66 H Pulse Oximetry 97 01/01/18 22:00 01/01/18 23:00 01/02/18 00:00 Temperature 98.3 F Pulse Rate 84 84 83 Respiratory Rate 16 Blood Pressure 142/63 H Pulse Oximetry 93 L 01/02/18 01:00 01/02/18 02:00 01/02/18 03:00 Temperature Pulse Rate 82 78 98 H Respiratory Rate Blood Pressure Pulse Oximetry 01/02/18 04:00 01/02/18 05:00 01/02/18 06:00 Temperature 98 F Pulse Rate 75 84 88 Respiratory Rate 15 Blood Pressure 168/68 H Pulse Oximetry 95 01/02/18 07:00 01/02/18 07:38 01/02/18 07:39 Temperature 98.6 F Pulse Rate 81 85 94 H Respiratory Rate 20 18 Blood Pressure 152/68 H Pulse Oximetry 94 L 01/02/18 08:10 01/02/18 08:27 01/02/18 09:00 Temperature Pulse Rate 78 92 H Respiratory Rate Blood Pressure Pulse Oximetry 94 L 01/02/18 10:00 01/02/18 11:27 01/02/18 11:29 Temperature 98.6 F Pulse Rate 87 77 77 Respiratory Rate 18 Blood Pressure 135/56 L Pulse Oximetry 95 01/02/18 11:58 01/02/18 12:00 Temperature Pulse Rate 81 91 H Respiratory Rate 20 Blood Pressure Pulse Oximetry Intake & Output 01/01/18 01/02/18 01/02/18 18:59 06:59 18:59 Intake Total 1090 / 1090 240 / 240 Balance 1090 / 1090 240 / 240 Weight 58.4 kg Intake: IV 350 / 350 Azithromycin Inj 500 MG In NS 250 / 250 Inj 250 ML @ 250 mls/hr IV.SIG Q24H [facility] Rx#:[id number] Rocephin Inj 2,000 MG In NS Inj 100 / 100 100 ML @ 200 mls/hr IV.SIG Q24H [facility] Rx#:[id number] Oral 740 / 740 240 / 240 Other: # Voids 3 3 Date of Last Bowel Movement 12/31/17 01/01/18 01/01/18 # Bowel Movements 1 - Constitutional no acute distress - Routine HEENT Exam Head: Present: atraumatic Eye: Present: normal accommodation ENT: Present: mucous membranes moist - Routine Neck Exam Present: supple - Routine Respiratory Exam Present: diminished air movement - Routine Cardiovascular Exam Present: RRR - Routine Abdominal Exam Present: soft - Routine Skin Exam Present: intact - Routine Neurological Exam Present: alert, oriented X3 - Detailed Neurological Exam: Coma Scale Eye Opening: Spontaneous Verbal Response: Oriented Motor Response: Obey commands [place] Coma Scale Total: 15 - Routine Psychiatric Exam Present: normal affect Results 12/31/17 06:47 12/31/17 06:47 Intake and Output 01/01/18 01/02/18 01/02/18 22:59 06:59 14:59 Intake Total 840 / 840 240 / 240 Balance 840 / 840 240 / 240 Intake: IV 100 / 100 Rocephin Inj 2,000 MG In NS Inj 100 / 100 100 ML @ 200 mls/hr IV.SIG Q24H [facility] Rx#:[id number] Oral 740 / 740 240 / 240 Other: # Voids 3 3 Date of Last Bowel Movement 12/31/17 01/01/18 01/01/18 # Bowel Movements 1 Weight 58.4 kg Patient Weight 01/03/18 06:59 Weight 58.4 kg Assessment and Plan - Plan Assessment Atrial fibrillation Questionable TIA Pneumonia Hydrocephalus Carotid stenosis Renal insufficiency Plan Now is SR. Patient and daughter refuse anticoagulants and understand the risks. Will keep on ASA and Metoprolol for now. I feel this is reasonable given the patients history of shunt placement, advanced age, and history of falls. Questionable TIA, daughters feel that transient episodes of confusion were related to pneumonia. On antibiotics History of shunt placed by Dr. Tadeo. CT reveals that the patient's ventriculostomy shunt appears in good position. The size of the ventricles is stable compared to the previous examination. May need monitoring outpatient for carotid stenosis. The patient was seen and evaluated by Dr. Benoit who completed face to face encounter and physical exam. The exam, history, and the medical decision-making described in the above note were completed with the assistance of the mid-level provider. I reviewed and agree with the findings presented. I attest that I had a [id number] encounter with the patient on the same day, and personally performed and documented my assessment and findings in the medical record.TIA and AFIB would normally recommend NOAC but pt has falls, family is not sure re TIA VS ING and refuse anticoagulation and understand risks of stroke etc. so we will hold off NOAC or now. Would welcome Dr Friedman input. Code Status: DNR Discussed Condition With: Nurse, Dr. Adkins, and 2 daughters
--- NOTE | 2018-01-02 16:40 | P.PNIM ---
Subjective Interval history: The patient was resting comfortably in bed. Her daughter was at the bedside. They were interested in rehabilitation placement. They were wondering about the need for home oxygen. Discussed with nursing. Physical Exam Vital signs: Vital Signs 01/01/18 17:00 01/01/18 18:00 01/01/18 18:56 Temperature Pulse Rate 84 92 H 92 H Respiratory Rate 20 Blood Pressure Pulse Oximetry 01/01/18 19:00 01/01/18 20:00 01/01/18 21:00 Temperature 98.5 F Pulse Rate 86 98 H 90 Respiratory Rate 16 Blood Pressure 161/66 H Pulse Oximetry 97 01/01/18 22:00 01/01/18 23:00 01/02/18 00:00 Temperature 98.3 F Pulse Rate 84 84 83 Respiratory Rate 16 Blood Pressure 142/63 H Pulse Oximetry 93 L 01/02/18 01:00 01/02/18 02:00 01/02/18 03:00 Temperature Pulse Rate 82 78 98 H Respiratory Rate Blood Pressure Pulse Oximetry 01/02/18 04:00 01/02/18 05:00 01/02/18 06:00 Temperature 98 F Pulse Rate 75 84 88 Respiratory Rate 15 Blood Pressure 168/68 H Pulse Oximetry 95 01/02/18 07:00 01/02/18 07:38 01/02/18 07:39 Temperature 98.6 F Pulse Rate 81 85 94 H Respiratory Rate 20 18 Blood Pressure 152/68 H Pulse Oximetry 94 L 01/02/18 08:10 01/02/18 08:27 01/02/18 09:00 Temperature Pulse Rate 78 92 H Respiratory Rate Blood Pressure Pulse Oximetry 94 L 01/02/18 10:00 01/02/18 11:27 01/02/18 11:29 Temperature 98.6 F Pulse Rate 87 77 77 Respiratory Rate 18 Blood Pressure 135/56 L Pulse Oximetry 95 01/02/18 11:58 01/02/18 12:00 Temperature Pulse Rate 81 91 H Respiratory Rate 20 Blood Pressure Pulse Oximetry Intake & Output 01/01/18 01/02/18 01/02/18 18:59 06:59 18:59 Intake Total 1090 / 1090 240 / 240 350 / 350 Balance 1090 / 1090 240 / 240 350 / 350 Weight 58.4 kg Intake: IV 350 / 350 350 / 350 Azithromycin Inj 500 MG In NS 250 / 250 250 / 250 Inj 250 ML @ 250 mls/hr IV.SIG Q24H [facility] Rx#:[id number] Rocephin Inj 2,000 MG In NS Inj 100 / 100 100 / 100 100 ML @ 200 mls/hr IV.SIG Q24H [facility] Rx#:[id number] Oral 740 / 740 240 / 240 Other: # Voids 3 3 Date of Last Bowel Movement 12/31/17 01/01/18 01/01/18 # Bowel Movements 1 Narrative: GENERAL: No distress. SKIN: Warm and dry. No rashes. HEAD: Atraumatic, normocephalic. EYES: No scleral icterus. No injection or drainage. ENT: Moist mucous membranes, patent nares, no erythema of oropharynx. NECK: Supple, trachea midline. No JVD or lymphadenopathy. Normal thyroid. CARDIOVASCULAR: Regular rate and rhythm. No murmurs, gallops, or rubs. RESPIRATORY: Fine crackles in LLL > RLL. No accessory muscle use. GASTROINTESTINAL: Abdomen soft, non-tender, nondistended, normal active bowel sounds MUSCULOSKELETAL: No cyanosis, or edema. NEURO: CN II-XII grossly intact, no focal deficits, no slurring of speech Results - Labs CBC & Chem 7: 12/31/17 06:47 12/31/17 06:47 Microbiology 12/29/17 12:09 Blood - Peripheral Aerobic Blood Culture - Preliminary No growth in 4 days 12/29/17 12:09 Blood - Peripheral Anaerobic Blood Culture - Preliminary No growth in 4 days 12/29/17 12:00 Blood - Peripheral Aerobic Blood Culture - Preliminary No growth in 4 days 12/29/17 12:00 Blood - Peripheral Anaerobic Blood Culture - Preliminary No growth in 4 days 12/28/17 05:38 Blood - Peripheral Aerobic Blood Culture - Final No growth in 5 days 12/28/17 05:38 Blood - Peripheral Anaerobic Blood Culture - Final No growth in 5 days 12/28/17 05:30 Blood - Peripheral Aerobic Blood Culture - Final No growth in 5 days 12/28/17 05:30 Blood - Peripheral Anaerobic Blood Culture - Final No growth in 5 days Assessment and Plan - Assessment (1) Sepsis Code(s): A41.9 - Sepsis, unspecified organism Status: Acute (2) Legionella pneumonia Code(s): A48.1 - Legionnaires' disease Status: Acute - Plan LEGIONELLA PNA, RLL Admitted with evidence of sepsis, treated accordingly CXR showed new airspace consolidation in the right lower lung zone suspicious for pneumonia Legionella confirmed by urinary antigen -Continue on IV azithromycin -D/c ceftriaxone and monitor. Suspected TIA vs seizure (atypical or febrile) Patient has normal pressure hydrocephalus status post the P [place] head with no acute abnormality with [employer] shunt in good position. EEG shows some patterns that have propensity for seizure Echo EF 55-60%, grade 2 diastolic dysfunction Carotid US shows bilateral stenosis 50-69% Continue aspirin, statin, Keppra Appreciate neurology consult Appreciate vascular consult Appreciate neurosurgery consult Continue PT OT. -? rehab placement. Paroxysmal atrial fibrillation Patient is currently in normal sinus rhythm, but she has episodic atrial fibrillation She is currently receiving subcutaneous heparin Daughter has concerns about her mother being on a blood thinner It is possible that her A. fib was aggravated by infection -cardiology discussed with family. No blood thinners will be started per patient and family preference. Hypertension Benicar held due to acute kidney injury on admission -Continue on amlodipine 10 mg daily, Lopressor 12.5mg BID -Clonidine as needed TRACY on CKD stage 3 Slowly improving Avoid nephrotoxic agents, Benicar held. Hypothyroidism continue on Levothyroxine DVT prophylaxis Heparin Discharge Planning: D/c to rehab when bed available
[2018-01-02] MEDS ORDERED: levoFLOXacin 750 MG Tablet PO SCH (16:45)
[2018-01-03 05:20] LABS: Baso % (Auto) 0.4 % (0.0-2.0); Eos # (Auto) 0.4 th/mm3 (0.0-0.4); Eos % (Auto) 5.2 % (0.0-4.0); Hematocrit 28.7 % (35.0-46.0); Hemoglobin 9.8 gm/dL (11.6-15.3); Lymph # (Auto) 0.9 th/mm3 (1.0-4.8); Lymph % (Auto) 12.5 % (9.0-44.0); Mean Corpuscular HGB Conc 34.2 % (32.0-36.0); Mean Corpuscular Hemoglobin 29.8 pg (27.0-34.0); Mean Corpuscular Volume 87.2 fL (80.0-100.0); Mono # (Auto) 0.7 th/mm3 (0.0-0.9); Mono % (Auto) 10.2 % (0.0-8.0); Neut # (Auto) 5.2 th/mm3 (1.8-7.7); Neut % (Auto) 71.7 % (16.0-70.0); Platelet Count 356 th/mm3 (150-450); Red Cell Distribution Width 14.2 % (11.6-17.2); White Blood Count 7.2 th/mm3 (4.0-11.0)
[2018-01-03 05:39] LABS: Calcium 9.1 mg/dL (8.5-10.1); Carbon Dioxide 22.5 meq/L (21.0-32.0); Magnesium 2.1 mg/dL (1.5-2.5); Phosphorus 3.1 mg/dL (2.5-4.9); Potassium 4.1 meq/L (3.5-5.1)
[2018-01-03] MEDS: Levothyroxine 88 MCG Tablet PO SCH (06:36)
[2018-01-03 07:00] LABS: Eosinophils 5 % (0-4); Lymphocytes 13 % (9-44); Metamyelocytes 1 % (0-1); Monocytes 8 % (0-8); Tallied Nucleated RBC 1 (0-0)
[2018-01-03 07:01] LABS: Ovalocytes 1+; Platelet Estimate Normal (Normal); Platelet Morphology Normal (Normal); Toxic Granulation 1+
[2018-01-03] MEDS: guaiFENesin 600 MG ER Tablet PO SCH ×2 (08:46→21:33)
[2018-01-03] MEDS: Metoprolol Tartrate 25 MG Tablet PO SCH ×2 (08:46→21:34)
[2018-01-03] MEDS: levETIRAcetam 500 MG Tablet PO SCH ×2 (08:46→21:33)
[2018-01-03] MEDS: amLODIPine 10 MG Tablet PO SCH (08:46)
[2018-01-03] MEDS: Heparin - SQ 10,000 UNITS/ML Vial SQ SCH ×2 (08:47→21:32)
--- NOTE | 2018-01-03 08:53 | P.PNCA ---
Subjective Interval history: Lying in bed, family member at bedside. Denies any complaints. No chest pain. Currently in SR. Medications and Allergies Active Medications: Active Medications Acetaminophen (Tylenol) 650 mg PO Q4H PRN PRN Reason: Fever, pain Last Admin: 01/01/18 02:57 Dose: 650 mg Acyclovir (Zovirax 5% Cream) 1 applicatio TOPICAL TID REPLACED BY [facility] Last Admin: 01/03/18 08:47 Dose: 1 applicatio Albuterol (Duoneb Neb ([facility])) 1 ampul NEB Q4HR WHILE AWAKE NEB REPLACED BY [facility] Last Admin: 01/02/18 19:48 Dose: 1 ampul Amlodipine Besylate (Norvasc) 10 mg PO DAILY [facility] Last Admin: 01/03/18 08:46 Dose: 10 mg Aspirin (Ecotrin) 81 mg PO DAILY [facility] Last Admin: 01/03/18 08:46 Dose: 81 mg Clonidine HCl (Catapres) 0.1 mg PO Q6H PRN PRN Reason: SBP>160, DBP>90 Guaifenesin (Mucinex Er) 600 mg PO BID [facility] Last Admin: 01/03/18 08:46 Dose: 600 mg Heparin Sodium (Porcine) (Heparin Inj) 5,000 units SQ Q12HR [facility] Last Admin: 01/03/18 08:47 Dose: 5,000 units Sodium Chloride (Ns Inj) 1,000 mls @ 42 mls/hr IV.CONT .[id number] [facility]PL[facility] Last Infusion: 12/30/17 15:53 Dose: Infused Azithromycin 500 mg/ Sodium (Chloride) 250 mls @ 250 mls/hr IV.SIG Q24H [facility] Last Infusion: 01/02/18 12:50 Dose: Infused Levetiracetam (Keppra) 500 mg PO BID [facility] Last Admin: 01/03/18 08:46 Dose: 500 mg Levothyroxine Sodium (Synthroid) 88 mcg PO DAILY@0600 [facility] Last Admin: 01/03/18 06:36 Dose: 88 mcg Metoprolol Tartrate (Lopressor) 12.5 mg PO BID [facility] Last Admin: 01/03/18 08:46 Dose: 12.5 mg Miscellaneous (Pill Splitter) 1 each OTHER UNSCH PRN PRN Reason: SEE LABEL COMMENTS Patient Own Medication: Zioptan 0.0015% Ophthalmic Solution ( Preservative-Free ) 0 each EACH EYE DAILY@1800 [facility] Pravastatin Sodium (Pravachol) 40 mg PO DAILY@1800 [facility] Last Admin: 01/02/18 17:28 Dose: 40 mg Sodium Chloride (Ns Flush) 2 ml IV.FLUSH PRN PRN PRN Reason: FLUSH AFTER USING IV ACCESS Last Admin: 01/01/18 09:00 Dose: 2 ml Allergies Allergy/AdvReac Type Severity Reaction Status Date / Time EYE DROPS Allergy Severe Swelling Uncoded 08/31/16 09:47 Home Medications Medication Instructions Recorded Confirmed Type levothyroxine [Synthroid] 88 mcg PO DAILY 12/27/17 12/27/17 History olmesartan [Benicar] 20 mg PO DAILY 12/27/17 12/27/17 History simvastatin 20 mg PO QPM 12/27/17 12/27/17 History tafluprost (PF) [Zioptan (PF)] 1 drp OPHTHALMIC (EYE) QPM 12/27/17 12/27/17 History vit C-vit D-ynqfxc-xdq-om-3 1 cap PO DAILY 12/27/17 12/27/17 History [Ocuvite] Physical Exam Vital signs: Vital Signs 01/02/18 09:00 01/02/18 10:00 01/02/18 11:00 Temperature Pulse Rate 92 H 87 87 Respiratory Rate Blood Pressure Pulse Oximetry 01/02/18 11:27 01/02/18 11:29 01/02/18 11:58 Temperature 98.6 F Pulse Rate 77 77 81 Respiratory Rate 18 20 Blood Pressure 135/56 L Pulse Oximetry 95 01/02/18 12:00 01/02/18 13:00 01/02/18 14:00 Temperature Pulse Rate 91 H 80 87 Respiratory Rate Blood Pressure Pulse Oximetry 01/02/18 15:00 01/02/18 16:00 01/02/18 17:00 Temperature 98.5 F Pulse Rate 86 86 96 H Respiratory Rate 20 Blood Pressure 136/52 L Pulse Oximetry 96 01/02/18 17:04 01/02/18 18:00 01/02/18 19:00 Temperature 99.4 F Pulse Rate 78 78 89 Respiratory Rate 18 20 Blood Pressure 142/52 H Pulse Oximetry 96 01/02/18 19:49 01/02/18 19:50 01/02/18 20:00 Temperature Pulse Rate 71 84 Respiratory Rate 18 Blood Pressure Pulse Oximetry 95 01/02/18 22:26 01/03/18 00:00 01/03/18 03:00 Temperature 99.7 F H 99.3 F Pulse Rate 90 72 79 Respiratory Rate 18 18 Blood Pressure 146/52 H 147/55 H Pulse Oximetry 94 L 94 L 01/03/18 04:00 01/03/18 08:37 01/03/18 08:42 Temperature 98.4 F Pulse Rate 89 75 Respiratory Rate 17 Blood Pressure 152/60 H Pulse Oximetry 98 95 Intake & Output 01/02/18 01/03/18 01/03/18 18:59 06:59 18:59 Intake Total 1030 / 1030 240 / 240 Output Total 700 / 700 Balance 1030 / 1030 -460 / -460 Weight 58.4 kg 58.5 kg Intake: IV 350 / 350 Azithromycin Inj 500 MG In NS 250 / 250 Inj 250 ML @ 250 mls/hr IV.SIG Q24H [facility] Rx#:[id number] Rocephin Inj 2,000 MG In NS Inj 100 / 100 100 ML @ 200 mls/hr IV.SIG Q24H [facility] Rx#:[id number] Oral 680 / 680 240 / 240 Output: Urine 700 / 700 Other: # Voids 2 Date of Last Bowel Movement 01/02/18 01/02/18 # Bowel Movements 2 - Constitutional no acute distress - Routine HEENT Exam Head: Present: normocephalic, atraumatic Eye: Present: PERRL, normal accommodation ENT: Present: mucous membranes moist - Routine Neck Exam Present: supple - Routine Respiratory Exam Present: wheezes, diminished air movement Comments: on o2 NC - Routine Cardiovascular Exam Present: RRR - Routine Abdominal Exam Present: soft - Routine Skin Exam Present: intact - Routine Neurological Exam Present: alert, oriented X3 - Detailed Neurological Exam: Coma Scale Eye Opening: Spontaneous Verbal Response: Oriented Motor Response: Obey commands [place] Coma Scale Total: 15 - Routine Psychiatric Exam Present: normal affect Results 01/03/18 04:24 01/03/18 04:24 CBC 01/03/18 Range/Units 04:24 WBC 7.2 (4.0-11.0) th/mm3 RBC 3.30 L (4.00-5.30) mil/mm3 Hgb 9.8 L (11.6-15.3) gm/dL Hct 28.7 L (35.0-46.0) % Plt Count 356 D (150-450) th/mm3 Neut # (Auto) 5.2 (1.8-7.7) th/mm3 Lymph # (Auto) 0.9 L (1.0-4.8) th/mm3 [place] # (Auto) 0.7 (0.0-0.9) th/mm3 Eos # (Auto) 0.4 (0.0-0.4) th/mm3 Baso # (Auto) 0.0 (0.0-0.2) th/mm3 Comprehensive Metabolic Panel 01/03/18 Range/Units 04:24 Sodium 140 (136-145) meq/L Potassium 4.1 (3.5-5.1) meq/L Chloride 108 H (98-107) meq/L Carbon Dioxide 22.5 (21.0-32.0) meq/L BUN 32 H (7-18) mg/dL Creatinine 1.68 H (0.50-1.00) mg/dL Calcium 9.1 (8.5-10.1) mg/dL Intake and Output 01/02/18 01/03/18 01/03/18 22:59 06:59 14:59 Intake Total 680 / 680 240 / 240 Output Total 700 / 700 Balance 680 / 680 -460 / -460 Intake: Oral 680 / 680 240 / 240 Output: Urine 700 / 700 Other: # Voids 2 Date of Last Bowel Movement 01/02/18 01/02/18 # Bowel Movements 2 Weight 58.5 kg Assessment and Plan - Plan Assessment Atrial fibrillation Questionable TIA Pneumonia Hydrocephalus Carotid stenosis Renal insufficiency Plan Continues in SR. Patient and daughter refuse anticoagulants and understand the risks. Will keep on ASA and Metoprolol for now. I feel this is reasonable given the patients history of shunt placement, advanced age, and history of falls. Questionable TIA, daughters feel that transient episodes of confusion were related to pneumonia. On antibiotics History of shunt placed by Dr. Tadeo. CT reveals that the patient's ventriculostomy shunt appears in good position. The size of the ventricles is stable compared to the previous examination. May need monitoring/follow up outpatient for carotid stenosis. TIA and AFIB would normally recommend NOAC but pt has falls, family is not sure re TIA VS [place] and refuse anticoagulation and understand risks of stroke etc. so we will hold off NOAC or now. Would welcome Dr Friedman input. The patient was seen and evaluated by Dr. Benoit who completed face to face encounter and physical exam. . Code Status: DNR Discussed Condition With: Nurse
[2018-01-03] MEDS: Azithromycin Inj 500 MG in Sodium Chlor 0.9% Inj 250 ML IV.SIG SCH (11:58)
--- NOTE | 2018-01-03 16:29 | P.PNIM ---
Subjective Interval history: The patient was ambulating in the room. Her daughter was at the bedside. The patient had no acute complaints. They are wondering about placement at rehab. Discussed with nursing and case management. Physical Exam Vital signs: Vital Signs 01/02/18 17:00 01/02/18 17:04 01/02/18 18:00 Temperature Pulse Rate 96 H 78 78 Respiratory Rate 18 Blood Pressure Pulse Oximetry 01/02/18 19:00 01/02/18 19:49 01/02/18 19:50 Temperature 99.4 F Pulse Rate 89 71 Respiratory Rate 20 18 Blood Pressure 142/52 H Pulse Oximetry 96 95 01/02/18 20:00 01/02/18 22:26 01/03/18 00:00 Temperature 99.7 F H Pulse Rate 84 90 72 Respiratory Rate 18 Blood Pressure 146/52 H Pulse Oximetry 94 L 01/03/18 03:00 01/03/18 04:00 01/03/18 07:00 Temperature 99.3 F Pulse Rate 79 89 78 Respiratory Rate 18 Blood Pressure 147/55 H Pulse Oximetry 94 L 01/03/18 08:00 01/03/18 08:37 01/03/18 08:42 Temperature 98.4 F Pulse Rate 80 75 Respiratory Rate 17 Blood Pressure 152/60 H Pulse Oximetry 98 95 01/03/18 09:00 01/03/18 09:26 01/03/18 10:00 Temperature Pulse Rate 82 79 100 H Respiratory Rate 16 Blood Pressure Pulse Oximetry 97 01/03/18 11:00 01/03/18 11:54 01/03/18 12:00 Temperature 98.5 F Pulse Rate 73 66 70 Respiratory Rate 17 Blood Pressure 133/48 L Pulse Oximetry 97 01/03/18 12:54 01/03/18 13:00 01/03/18 14:00 Temperature Pulse Rate 80 70 78 Respiratory Rate 16 Blood Pressure Pulse Oximetry 01/03/18 15:29 Temperature Pulse Rate 79 Respiratory Rate 18 Blood Pressure Pulse Oximetry Intake & Output 01/02/18 01/03/18 01/03/18 18:59 06:59 18:59 Intake Total 1030 / 1030 240 / 240 250 / 250 Output Total 700 / 700 Balance 1030 / 1030 -460 / -460 250 / 250 Weight 58.4 kg 58.5 kg Intake: IV 350 / 350 250 / 250 Azithromycin Inj 500 MG In NS 250 / 250 250 / 250 Inj 250 ML @ 250 mls/hr IV.SIG Q24H [facility] Rx#:[id number] Rocephin Inj 2,000 MG In NS Inj 100 / 100 100 ML @ 200 mls/hr IV.SIG Q24H [facility] Rx#:[id number] Oral 680 / 680 240 / 240 Output: Urine 700 / 700 Other: # Voids 2 Date of Last Bowel Movement 01/02/18 01/02/18 01/03/18 # Bowel Movements 2 Narrative: GENERAL: No distress. SKIN: Warm and dry. No rashes. HEAD: Atraumatic, normocephalic. EYES: No scleral icterus. No injection or drainage. ENT: Moist mucous membranes, patent nares, no erythema of oropharynx. NECK: Supple, trachea midline. No JVD or lymphadenopathy. Normal thyroid. CARDIOVASCULAR: Regular rate and rhythm. No murmurs, gallops, or rubs. RESPIRATORY: Clear to auscultation. No accessory muscle use. GASTROINTESTINAL: Abdomen soft, non-tender, nondistended, normal active bowel sounds MUSCULOSKELETAL: No cyanosis, or edema. NEURO: CN II-XII grossly intact, no focal deficits, no slurring of speech Results - Labs CBC & Chem 7: 01/03/18 04:24 01/03/18 04:24 Laboratory Results - last 24 hr 01/03/18 01/03/18 04:24 04:24 WBC 7.2 RBC 3.30 L Hgb 9.8 L Hct 28.7 L MCV 87.2 MCH 29.8 MCHC 34.2 RDW 14.2 Plt Count 356 D MPV 8.0 Prelim Diff (Auto) Slide review pending Neut % (Auto) 71.7 H Lymph % (Auto) 12.5 [place] % (Auto) 10.2 H Eos % (Auto) 5.2 H Baso % (Auto) 0.4 Neut # (Auto) 5.2 Lymph # (Auto) 0.9 L [place] # (Auto) 0.7 Eos # (Auto) 0.4 Baso # (Auto) 0.0 WBC Differential Manual diff final Seg Neuts % (Manual) 54 Band Neuts % (Manual) 18 H Lymphocytes % (Manual) 13 Monocytes % (Manual) 8 Eosinophils % (Manual) 5 H Basophils % (Manual) 1 Metamyelocytes % (Man) 1 Abs Neuts (Manual) 5.3 Nucleated RBCs/100 WBC 1 H Differential Comment . Toxic Granulation 1+ H Platelet Estimate Normal Platelet Morphology Normal Ovalocytes 1+ H Sodium 140 Potassium 4.1 Chloride 108 H Carbon Dioxide 22.5 Anion Gap 10 BUN 32 H Creatinine 1.68 H Estimated GFR 29 L Random Glucose 90 Calcium 9.1 Phosphorus 3.1 Magnesium 2.1 Microbiology 12/29/17 12:09 Blood - Peripheral Aerobic Blood Culture - Final No growth in 5 days 12/29/17 12:09 Blood - Peripheral Anaerobic Blood Culture - Final No growth in 5 days 12/29/17 12:00 Blood - Peripheral Aerobic Blood Culture - Final No growth in 5 days 12/29/17 12:00 Blood - Peripheral Anaerobic Blood Culture - Final No growth in 5 days Assessment and Plan - Assessment (1) Sepsis Code(s): A41.9 - Sepsis, unspecified organism Status: Acute (2) Legionella pneumonia Code(s): A48.1 - Legionnaires' disease Status: Acute - Plan LEGIONELLA PNA, RLL Admitted with evidence of sepsis, treated accordingly CXR showed new airspace consolidation in the right lower lung zone suspicious for pneumonia Legionella confirmed by urinary antigen -Continue on IV azithromycin -D/c ceftriaxone and monitor. Suspected TIA vs seizure (atypical or febrile) Patient has normal pressure hydrocephalus status post the P [place] head with no acute abnormality with [employer] shunt in good position. EEG shows some patterns that have propensity for seizure Echo EF 55-60%, grade 2 diastolic dysfunction Carotid US shows bilateral stenosis 50-69% Continue aspirin, statin, Keppra Appreciate neurology consult Appreciate vascular consult Appreciate neurosurgery consult Continue PT OT. -? rehab placement vs SNF. Paroxysmal atrial fibrillation Patient is currently in normal sinus rhythm, but she has episodic atrial fibrillation She is currently receiving subcutaneous heparin Daughter has concerns about her mother being on a blood thinner It is possible that her A. fib was aggravated by infection -cardiology discussed with family. No blood thinners will be started per patient and family preference. Continue full strength aspirin. Hypertension Benicar held due to acute kidney injury on admission -Continue on amlodipine 10 mg daily, Lopressor 12.5mg BID -Clonidine as needed TRACY on CKD stage 3 Slowly improving Avoid nephrotoxic agents, Benicar held. Hypothyroidism -continue on Levothyroxine DVT prophylaxis Heparin Discharge Planning: D/c to rehab when bed available
[2018-01-04] MEDS: Levothyroxine 88 MCG Tablet PO SCH (07:33)
[2018-01-04] MEDS: guaiFENesin 600 MG ER Tablet PO SCH ×2 (09:50→20:25)
[2018-01-04] MEDS: Metoprolol Tartrate 25 MG Tablet PO SCH ×2 (09:51→20:24)
[2018-01-04] MEDS: amLODIPine 10 MG Tablet PO SCH (09:52)
[2018-01-04] MEDS: levETIRAcetam 500 MG Tablet PO SCH ×2 (09:53→20:25)
[2018-01-04] MEDS: Heparin - SQ 10,000 UNITS/ML Vial SQ SCH ×2 (09:53→20:25)
--- NOTE | 2018-01-04 10:12 | P.PNCA ---
Subjective Interval history: No atrial fibrillation documented on telemetry in the past 24 hours. The patient complains of mild hemoptysis and had a single quarter size blood clot after blowing her nose. Otherwise, the patient feels well. She continues to have intermittent coughing. Shortness of breath is markedly improved since admissi The exam, history, and the medical decision-making described in the above note were completed with the assistance of the mid-level provider. I reviewed and agree with the findings presented. I attest that I had a [id number] encounter with the patient on the same day, and personally performed and documented my assessment and findings in the medical record.on. She was able to ambulate to the bathroom without shortness of breath. No chest pain. will watch for further bleeding. family and pt refuse anticoagulation understand risks of stroke with afib. Medications and Allergies Allergies Allergy/AdvReac Type Severity Reaction Status Date / Time EYE DROPS Allergy Severe Swelling Uncoded 08/31/16 09:47 Home Medications Medication Instructions Recorded Confirmed Type levothyroxine [Synthroid] 88 mcg PO DAILY 12/27/17 12/27/17 History olmesartan [Benicar] 20 mg PO DAILY 12/27/17 12/27/17 History simvastatin 20 mg PO QPM 12/27/17 12/27/17 History tafluprost (PF) [Zioptan (PF)] 1 drp OPHTHALMIC (EYE) QPM 12/27/17 12/27/17 History vit C-vit [id number] 1 cap PO DAILY 12/27/17 12/27/17 History [Ocuvite] Active Medications: Active Medications Acetaminophen (Tylenol) 650 mg PO Q4H PRN PRN Reason: Fever, pain Last Admin: 01/01/18 02:57 Dose: 650 mg Acyclovir (Zovirax 5% Cream) 1 applicatio TOPICAL TID [facility] Last Admin: 01/04/18 10:00 Dose: 1 applicatio Amlodipine Besylate (Norvasc) 10 mg PO DAILY [facility] Last Admin: 01/04/18 09:52 Dose: 10 mg Aspirin (Ecotrin) 325 mg PO DAILY [facility] Last Admin: 01/04/18 09:53 Dose: 325 mg Clonidine HCl (Catapres) 0.1 mg PO Q6H PRN PRN Reason: SBP>160, DBP>90 Guaifenesin (Mucinex Er) 600 mg PO BID [facility] Last Admin: 01/04/18 09:50 Dose: 600 mg Heparin Sodium (Porcine) (Heparin Inj) 5,000 units SQ Q12HR [facility] Last Admin: 01/04/18 09:53 Dose: 5,000 units Sodium Chloride (Ns Inj) 1,000 mls @ 42 mls/hr IV.CONT .[id number] [facility] Last Infusion: 12/30/17 15:53 Dose: Infused Azithromycin 500 mg/ Sodium (Chloride) 250 mls @ 250 mls/hr IV.SIG Q24H [facility] Last Infusion: 01/03/18 15:04 Dose: Infused Levetiracetam (Keppra) 500 mg PO BID [facility] Last Admin: 01/04/18 09:53 Dose: 500 mg Levothyroxine Sodium (Synthroid) 88 mcg PO DAILY@0600 [facility] Last Admin: 01/04/18 07:33 Dose: 88 mcg Metoprolol Tartrate (Lopressor) 12.5 mg PO BID [facility] Last Admin: 01/04/18 09:51 Dose: 12.5 mg Miscellaneous (Pill Splitter) 1 each OTHER UNSCH PRN PRN Reason: SEE LABEL COMMENTS Patient Own Medication: Zioptan 0.0015% Ophthalmic Solution ( Preservative-Free ) 0 each EACH EYE DAILY@1800 [facility] Pravastatin Sodium (Pravachol) 40 mg PO DAILY@1800 [facility] Last Admin: 01/03/18 17:13 Dose: 40 mg Sodium Chloride (Ns Flush) 2 ml IV.FLUSH PRN PRN PRN Reason: FLUSH AFTER USING IV ACCESS Last Admin: 01/01/18 09:00 Dose: 2 ml Physical Exam Vital signs: Vital Signs 01/03/18 11:00 01/03/18 11:54 01/03/18 12:00 Temperature 98.5 F Pulse Rate 73 66 70 Respiratory Rate 17 Blood Pressure 133/48 L Pulse Oximetry 97 01/03/18 12:54 01/03/18 13:00 01/03/18 14:00 Temperature Pulse Rate 80 70 78 Respiratory Rate 16 Blood Pressure Pulse Oximetry 01/03/18 15:00 01/03/18 15:29 01/03/18 16:00 Temperature Pulse Rate 74 79 86 Respiratory Rate 18 Blood Pressure Pulse Oximetry 01/03/18 17:00 01/03/18 17:11 01/03/18 18:00 Temperature 98.4 F Pulse Rate 82 81 84 Respiratory Rate 16 Blood Pressure 138/51 L Pulse Oximetry 98 01/03/18 19:00 01/03/18 20:00 01/03/18 21:00 Temperature 98.2 F Pulse Rate 77 80 77 Respiratory Rate 16 Blood Pressure 140/58 L Pulse Oximetry 96 01/03/18 22:00 01/03/18 23:00 01/04/18 00:00 Temperature 98.2 F Pulse Rate 77 62 72 Respiratory Rate 16 Blood Pressure 150/56 H Pulse Oximetry 95 01/04/18 01:00 01/04/18 02:00 01/04/18 03:00 Temperature 98.3 F Pulse Rate 62 72 71 Respiratory Rate 16 Blood Pressure 143/54 H Pulse Oximetry 95 01/04/18 04:00 01/04/18 05:00 01/04/18 06:00 Temperature Pulse Rate 71 77 77 Respiratory Rate Blood Pressure Pulse Oximetry Intake & Output 01/03/18 01/04/18 01/04/18 18:59 06:59 18:59 Intake Total 730 / 730 480 / 480 Output Total 925 / 925 950 / 950 Balance -195 / -195 -470 / -470 Weight 56.9 kg Intake: IV 250 / 250 Azithromycin Inj 500 MG In NS 250 / 250 Inj 250 ML @ 250 mls/hr IV.SIG Q24H [facility] Rx#:[id number] Oral 480 / 480 480 / 480 Output: Urine 925 / 925 950 / 950 Other: # Voids 3 Date of Last Bowel Movement 01/03/18 01/03/18 # Bowel Movements 2 - Constitutional no acute distress Comments: Up in the chair eating breakfast. Family at bedside. - Routine HEENT Exam Head: Present: normocephalic Eye: Present: EOMI ENT: Present: mucous membranes moist - Routine Neck Exam Present: supple Comments: No JVD - Routine Respiratory Exam Present: CTA bilaterally Comments: Nasal cannula - Routine Cardiovascular Exam Present: RRR - Routine Abdominal Exam Present: soft, normoactive bowel sounds - Routine Extremities Exam Comments: No edema - Routine Skin Exam Present: intact - Routine Neurological Exam Present: alert, oriented X3 - Routine Psychiatric Exam Present: normal affect, normal thought process Results 01/03/18 04:24 10/04/18 04:24 CBC 01/03/18 Range/Units 04:24 WBC 7.2 (4.0-11.0) th/mm3 RBC 3.30 L (4.00-5.30) mil/mm3 Hgb 9.8 L (11.6-15.3) gm/dL Hct 28.7 L (35.0-46.0) % Plt Count 356 D (150-450) th/mm3 Neut # (Auto) 5.2 (1.8-7.7) th/mm3 Lymph # (Auto) 0.9 L (1.0-4.8) th/mm3 [place] # (Auto) 0.7 (0.0-0.9) th/mm3 Eos # (Auto) 0.4 (0.0-0.4) th/mm3 Baso # (Auto) 0.0 (0.0-0.2) th/mm3 Comprehensive Metabolic Panel 01/03/18 Range/Units 04:24 Sodium 140 (136-145) meq/L Potassium 4.1 (3.5-5.1) meq/L Chloride 108 H (98-107) meq/L Carbon Dioxide 22.5 (21.0-32.0) meq/L BUN 32 H (7-18) mg/dL Creatinine 1.68 H (0.50-1.00) mg/dL Calcium 9.1 (8.5-10.1) mg/dL Intake and Output 01/03/18 01/04/18 01/04/18 22:59 06:59 14:59 Intake Total 730 / 730 480 / 480 Output Total 925 / 925 950 / 950 Balance -195 / -195 -470 / -470 Intake: IV 250 / 250 Azithromycin Inj 500 MG In NS 250 / 250 Inj 250 ML @ 250 mls/hr IV.SIG Q24H [facility] Rx#:[id number] Oral 480 / 480 480 / 480 Output: Urine 925 / 925 950 / 950 Other: # Voids 3 Date of Last Bowel Movement 01/03/18 # Bowel Movements 2 Weight 56.9 kg - EKG Interpretation EKG shows: sinus rhythm (With PACs) Assessment and Plan - Plan Assessment Paroxysmal atrial fibrillation with critical illness Questionable TIA Pneumonia Hydrocephalus Moderate carotid stenosis Renal insufficiency Plan Continues in SR. Patient and daughter refuse anticoagulants and understand the risks. Will keep on ASA and Metoprolol for now. I feel this is reasonable given the patients history of shunt placement, advanced age, epistaxis and hemoptysis , and history of falls. Questionable TIA, daughters feel that transient episodes of confusion were related to pneumonia. Continue statin and aspirin. Recommend ongoing monitoring of chronic stenosis outpatient. History of shunt placed by Dr. Tadeo. CT reveals that the patient's ventriculostomy shunt appears in good position. The size of the ventricles is stable compared to the previous examination. The patient is cleared from a cardiovascular standpoint for transfer to [place]. Following discharge, the patient will need to follow-up in the office in 1 week. Pending clinical course, will recommend 2 weeks to 4-week [facility]OT Monitoring. The patient was seen and evaluated by Dr. Benoit who completed face to face encounter and physical exam. .
[2018-01-04] MEDS: Azithromycin Inj 500 MG in Sodium Chlor 0.9% Inj 250 ML IV.SIG SCH (13:30)
--- NOTE | 2018-01-04 16:01 | P.PNIM ---
Subjective Interval history: The patient was resting comfortably. Her daughter was at the bedside. The patient had no acute complaints. Discussed with nursing. Physical Exam Vital signs: Vital Signs 01/03/18 16:00 01/03/18 17:00 01/03/18 17:11 Temperature 98.4 F Pulse Rate 86 82 81 Respiratory Rate 16 Blood Pressure 138/51 L Pulse Oximetry 98 01/03/18 18:00 01/03/18 19:00 01/03/18 20:00 Temperature 98.2 F Pulse Rate 84 77 80 Respiratory Rate 16 Blood Pressure 140/58 L Pulse Oximetry 96 01/03/18 21:00 01/03/18 22:00 01/03/18 23:00 Temperature 98.2 F Pulse Rate 77 77 62 Respiratory Rate 16 Blood Pressure 150/56 H Pulse Oximetry 95 01/04/18 00:00 01/04/18 01:00 01/04/18 02:00 Temperature Pulse Rate 72 62 72 Respiratory Rate Blood Pressure Pulse Oximetry 01/04/18 03:00 01/04/18 04:00 01/04/18 05:00 Temperature 98.3 F Pulse Rate 71 71 77 Respiratory Rate 16 Blood Pressure 143/54 H Pulse Oximetry 95 01/04/18 06:00 01/04/18 07:00 01/04/18 08:00 Temperature 97.7 F Pulse Rate 77 75 77 Respiratory Rate 16 Blood Pressure 154/65 H Pulse Oximetry 98 98 01/04/18 09:00 01/04/18 10:00 01/04/18 11:00 Temperature 97.7 F Pulse Rate 70 68 61 Respiratory Rate 16 Blood Pressure 144/53 H Pulse Oximetry 99 01/04/18 12:00 01/04/18 13:00 01/04/18 14:00 Temperature Pulse Rate 64 59 L 58 L Respiratory Rate Blood Pressure Pulse Oximetry 01/04/18 15:00 Temperature 98 F Pulse Rate 65 Respiratory Rate 16 Blood Pressure 140/55 L Pulse Oximetry 98 Intake & Output 01/03/18 01/04/18 01/04/18 18:59 06:59 18:59 Intake Total 730 / 730 480 / 480 Output Total 925 / 925 950 / 950 Balance -195 / -195 -470 / -470 Weight 56.9 kg Intake: IV 250 / 250 Azithromycin Inj 500 MG In NS 250 / 250 Inj 250 ML @ 250 mls/hr IV.SIG Q24H [facility] Rx#:[id number] Oral 480 / 480 480 / 480 Output: Urine 925 / 925 950 / 950 Other: # Voids 3 Date of Last Bowel Movement 01/03/18 01/03/18 01/03/18 # Bowel Movements 2 Narrative: GENERAL: No distress. SKIN: Warm and dry. No rashes. HEAD: Atraumatic, normocephalic. EYES: No scleral icterus. No injection or drainage. ENT: Moist mucous membranes, patent nares, no erythema of oropharynx. NECK: Supple, trachea midline. No JVD or lymphadenopathy. Normal thyroid. CARDIOVASCULAR: Regular rate and rhythm. No murmurs, gallops, or rubs. RESPIRATORY: Clear to auscultation. No accessory muscle use. GASTROINTESTINAL: Abdomen soft, non-tender, nondistended, normal active bowel sounds MUSCULOSKELETAL: No cyanosis, or edema. NEURO: CN II-XII grossly intact, no focal deficits, no slurring of speech Results - Labs CBC & Chem 7: 01/03/18 04:24 01/03/18 04:24 Assessment and Plan - Assessment (1) Sepsis Code(s): A41.9 - Sepsis, unspecified organism Status: Acute (2) Legionella pneumonia Code(s): A48.1 - Legionnaires' disease Status: Acute - Plan LEGIONELLA PNA, RLL Admitted with evidence of sepsis, treated accordingly CXR showed new airspace consolidation in the right lower lung zone suspicious for pneumonia Legionella confirmed by urinary antigen -Continue on IV azithromycin. Switch to PO upon discharge to complete a course. -D/c ceftriaxone and monitor. Suspected TIA vs seizure (atypical or febrile) Patient has normal pressure hydrocephalus status post the P [place] CT head with no acute abnormality with [employer] shunt in good position. EEG shows some patterns that have propensity for seizure Echo EF 55-60%, grade 2 diastolic dysfunction Carotid US shows bilateral stenosis 50-69% Continue aspirin, statin, Keppra Appreciate neurology consult Appreciate vascular consult Appreciate neurosurgery consult Continue PT OT. -SNF in AM. Paroxysmal atrial fibrillation Patient is currently in normal sinus rhythm, but she has episodic atrial fibrillation She is currently receiving subcutaneous heparin Daughter has concerns about her mother being on a blood thinner It is possible that her A. fib was aggravated by infection -cardiology discussed with family. No blood thinners will be started per patient and family preference. Continue full strength aspirin. Outpt heart monitor to be set-up by cardiology. Hypertension Benicar held due to acute kidney injury on admission -Continue on amlodipine 10 mg daily, Lopressor 12.5mg BID -Clonidine as needed TRACY on CKD stage 3 Slowly improving Avoid nephrotoxic agents, Benicar held. Hypothyroidism -continue on Levothyroxine DVT prophylaxis Heparin Discharge Planning: D/c to SNF in AM
[2018-01-05] MEDS: Levothyroxine 88 MCG Tablet PO SCH (05:11)
[2018-01-05] MEDS: amLODIPine 10 MG Tablet PO SCH (08:48)
[2018-01-05] MEDS: guaiFENesin 600 MG ER Tablet PO SCH (08:49)
[2018-01-05] MEDS: levETIRAcetam 500 MG Tablet PO SCH (08:49)
[2018-01-05] MEDS: Heparin - SQ 10,000 UNITS/ML Vial SQ SCH (08:50)
[2018-01-05] MEDS: Metoprolol Tartrate 25 MG Tablet PO SCH (08:53)
[2018-01-05 09:12] VITALS: BP 152/79; PULSE 73; RESP 16; TEMP 97.6; O2SAT 98
--- NOTE | 2018-01-05 09:41 | P.DS ---
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 her daughter says that this morning she noticed that her speech was slurred and she seemed confused.she had urinary incontinence at the time. she says that she had some headache/ pressure this morning which has almost resolved. she denies any emesis,focal weakness, fever. she doesn't report any falls. she's complaining of mild pain to the right chest wall. DS: Diagnosis - Discharge Diagnosis (1) Sepsis Status: Acute (2) Legionella pneumonia Status: Acute DS: Summary Hospital Course: Legionella PNA Admitted with evidence of sepsis. CXR showed new airspace consolidation in the right lower lung zone, suspicious for pneumonia. Legionella confirmed by urinary antigen. The pt completed a course of antibiotics while in the hospital. She received oxygen and nebs as needed. Suspected TIA vs seizure Patient has normal pressure hydrocephalus and is status post [employer] shunt [place] 2007. CT head with no acute abnormality with [employer] shunt in good position. EEG showed some patterns that have propensity for seizure. Echo with EF 55-60%, grade 2 diastolic dysfunction. Carotid US showed bilateral stenosis 50-69%. Neurology, neurosurgery and vascular surgery were consulted. We continued the patient on aspirin, statin and Keppra. The pt continued to work with PT and OT. She will follow up with neurosurgery as an outpt. Paroxysmal atrial fibrillation Patient is currently in normal sinus rhythm, but she has episodic atrial fibrillation. Cardiology was consulted. Both cardiology and neurology recommended anticoagulation, but the pt's daughter had concerns about her mother being on a blood thinner and opted to place the patient on a full strength aspirin instead. The pt will follow up with cardiology as an outpt and will likely have a heart monitor placed at that time. Hypertension Benicar held due to acute kidney injury on admission. We continue the pt on amlodipine and Lopressor. She received clonidine as needed Acute on chronic renal failure Benicar was held. Stable. - Time Spent with Patient Total time spent providing and/or coordinating discharge services: Greater than 30 minutes - Quality: VTE Deep Vein Thrombosis/Pulmonary Embolism Present on Admission: No Exam Vital signs: Vital Signs 01/04/18 10:00 01/04/18 11:00 01/04/18 12:00 Temperature 97.7 F Pulse Rate 68 61 64 Respiratory Rate 16 Blood Pressure 144/53 H Pulse Oximetry 99 01/04/18 13:00 01/04/18 14:00 01/04/18 15:00 Temperature 98 F Pulse Rate 59 L 58 L 65 Respiratory Rate 16 Blood Pressure 140/55 L Pulse Oximetry 98 01/04/18 16:00 01/04/18 17:00 01/04/18 18:00 Temperature Pulse Rate 65 66 65 Respiratory Rate Blood Pressure Pulse Oximetry 01/04/18 19:00 01/04/18 20:00 01/04/18 20:47 Temperature 98.9 F Pulse Rate 70 70 Respiratory Rate 18 Blood Pressure 145/58 H Pulse Oximetry 95 99 01/04/18 21:00 01/04/18 22:00 01/04/18 23:00 Temperature 97.5 F L Pulse Rate 58 L 57 L 70 Respiratory Rate 18 Blood Pressure 132/57 L Pulse Oximetry 96 01/05/18 00:00 01/05/18 01:00 01/05/18 02:00 Temperature Pulse Rate 70 66 59 L Respiratory Rate Blood Pressure Pulse Oximetry 01/05/18 03:00 01/05/18 04:00 01/05/18 05:00 Temperature 98.2 F Pulse Rate 64 71 64 Respiratory Rate 18 Blood Pressure 147/60 H Pulse Oximetry 97 01/05/18 07:00 01/05/18 08:00 Temperature 97.6 F Pulse Rate 73 73 Respiratory Rate 16 Blood Pressure 152/79 H Pulse Oximetry 98 98 Intake & Output 01/04/18 01/05/18 01/05/18 18:59 06:59 18:59 Intake Total 1000 / 1000 200 / 200 Output Total 900 / 900 600 / 600 Balance 100 / 100 -400 / -400 Intake: IV 200 / 200 Azithromycin Inj 500 MG In NS 200 / 200 Inj 250 ML @ 250 mls/hr IV.SIG Q24H SHIN Rx#:[id number] Oral 800 / 800 200 / 200 Output: Urine 900 / 900 600 / 600 Other: Date of Last Bowel Movement 01/03/18 01/04/18 01/04/18 # Bowel Movements 0 Narrative: GENERAL: No distress. SKIN: Warm and dry. No rashes. HEAD: Atraumatic, normocephalic. EYES: No scleral icterus. No injection or drainage. ENT: Moist mucous membranes, patent nares, no erythema of oropharynx. NECK: Supple, trachea midline. No JVD or lymphadenopathy. Normal thyroid. CARDIOVASCULAR: Regular rate and rhythm. No murmurs, gallops, or rubs. RESPIRATORY: Clear to auscultation. No accessory muscle use. GASTROINTESTINAL: Abdomen soft, non-tender, nondistended, normal active bowel sounds MUSCULOSKELETAL: No cyanosis, or edema. NEURO: CN II-XII grossly intact, no focal deficits, no slurring of speech Results Procedures completed during hospitalization: See hospital course - Impressions ITS Impressions Carotid Doppler Study 12/27/17 00:00 CONCLUSION: 1. 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 2. Left Internal Carotid Artery: Findings indicate 50-69% stenosis. Head CT 12/27/17 11:19 CONCLUSION: 1. The patient's ventriculostomy shunt appears in good position. The size of the ventricles is stable compared to the previous examination. . Shunt Study 12/27/17 11:21 CONCLUSION: The ventriculoperitoneal shunt tubing appears intact. Abdomen/Bladder Ultrasound 12/28/17 00:00 CONCLUSION: Both kidneys are at the lower limits for normal in size. Both kidneys also demonstrate increased echogenicity suggesting medical renal disease. Chest X-Ray 12/29/17 00:00 CONCLUSION: New airspace consolidation in the right lower lung zone suspicious for pneumonia given the history of fever. There is also a small right pleural effusion. Pulmonary Perfusion Imaging 12/29/17 00:00 CONCLUSION: 1. The examination is negative for pulmonary embolus. Hip X-Ray 12/31/17 00:00 CONCLUSION: 1. Right hip arthroplasty in place. 2. Otherwise, unremarkable single portable view of the right hip. Discharge Plan - Discharge Disposition Patient Disposition: Discharge to SNF - Discharge Condition Condition: Stable - Discharge Order Discharge Orders: Discharge Order (Routine); Ordered 01/05/18 Ordered By: Clyde Huff - Discharge Details Anticipated Discharge Date: 01/05/18 - Physicians Team Primary Care Provider: Yoni Carrasco Attending Provider: Clyde Huff Other Providers: Jai Huff MD, PhD ; La Frausto MD ; Librado Werner MD ; Melisa Benoit MD
== END 2018-01-05 10:17 ==
LOC: NEPC 11:01 → NEDA 11:01 → NEPFCDU 16:17 → N05 12-30 16:17 → HCIN 12-31 22:01 → HCIS 01-01 06:09
PROVIDERS: ADMIT Hospitalist; ATTEND Hospitalist